=== PATIENT | male | born 1950 | race Caucasian/White ===

== ENCOUNTER 2017-04-05 16:49 | Inpatient (IN) | payer OTHER ==
[~2017-04-05] VITALS: Ht 167.6 cm; Wt 86.3 kg
[2017-04-05] MEDS ORDERED: ONDANSETRON 4 MG INJ IV STA (17:30)
[2017-04-05] MEDS ORDERED: morphine 4 MG/ML VIAL IV STA (17:30)
[2017-04-05] MEDS ORDERED: SOD CHLORIDE 0.9% 1,000 ML IV STA (17:30)
[2017-04-05 17:52] LABS: ADD SCAN DIFF NO
[2017-04-05 17:58] LABS: BASOPHIL # 0.1 10^3/ul (0.0-0.1); BASOPHILS % 0.8 % (0.0-2.0); EOSINOPHILS # 0.4 10^3/ul (0.0-0.5); HEMATOCRIT 42.9 % (42.0-52.0); HEMOGLOBIN 14.3 g/dl (14.0-18.0); LYMPHOCYTES # 2.3 10^3/ul (0.8-2.9); LYMPHOCYTES % 24.2 % (15.0-51.0); MEAN CORPUSCULAR HEMOGLOBIN 29.6 pg (29.0-33.0); MEAN CORPUSCULAR HGB CONC 33.3 g/dl (32.0-37.0); MEAN CORPUSCULAR VOLUME 88.8 fl (82.0-101.0); MEAN PLATELET VOLUME 10.8 fl (7.4-10.4); MONOCYTE # 0.8 10^3/ul (0.3-0.9); MONOCYTES % 8.2 % (0.0-11.0); NEUTROPHIL # 5.8 10^3/ul (1.6-7.5); NEUTROPHILS % 62.4 % (39.0-77.0); PLATELET COUNT 253 10^3/UL (140-415); RED BLOOD COUNT 4.83 10^6/ul (4.70-6.10); WHITE BLOOD COUNT 9.3 10^3/ul (4.8-10.8)
[2017-04-05 18:14] LABS: INR 0.94; PROTIME 12.6 Sec (12.2-14.2)
[2017-04-05 18:15] LABS: PARTIAL THROMBOPLASTIN TIME 30.9 Sec (25.0-35.0)
[2017-04-05 18:19] LABS: ALBUMIN 4.9 g/dl (3.3-4.9); ALBUMIN/GLOBULIN RATIO 1.58; BILIRUBIN,INDIRECT 0.2 mg/dl (0-1.1); BILIRUBIN,TOTAL 0.2 mg/dl (0.2-1.3); CALCIUM 9.5 mg/dl (8.4-10.2); CREATININE 0.95 mg/dl (0.61-1.24); POTASSIUM 4.9 mmol/L (3.5-5.1)
[2017-04-05] MEDS ORDERED: METO100T13 PO (18:30)
[2017-04-05] MEDS ORDERED: DIGO125T PO (18:30)
[2017-04-05] MEDS ORDERED: LISI20TA11 PO (18:31)
[2017-04-05] MEDS ORDERED: SIMV20TA PO (18:31)
[2017-04-05] MEDS ORDERED: INSU300I SQ (18:32)
[2017-04-05] MEDS ORDERED: APIX2.5T PO (18:32)
[2017-04-05] MEDS ORDERED: HYDR-902 PO (18:33)
[2017-04-05] MEDS ORDERED: NOVO3I SC (18:33)
[2017-04-05 18:48] LABS: CARCINOEMBRYONIC ANTIGEN 2.9 ng/ml (0.0-5.0)
[2017-04-05 18:51] VITALS: TEMP 97.8
[2017-04-05 18:52] LABS: CANCER ANTIGEN 19-9 64.4 U/ml (0.0-37.0)
[2017-04-05] MEDS ORDERED: SOD CHLORIDE 0.9% 100 ML ONE (18:59)
[2017-04-05] MEDS ORDERED: IOHEXOL 300MG/ML 150 ML BTL ONE (18:59)
[2017-04-05 19:42] LABS: ADD UMIC NO; UR ASCORBIC ACID 40 mg/dL (NEGATIVE); UR BILIRUBIN (Dip) NEGATIVE (NEGATIVE); UR BLOOD (Dip) NEGATIVE (NEGATIVE); UR CLARITY CLEAR (CLEAR); UR COLOR YELLOW (YELLOW); UR GLUCOSE (Dip) 2+ mg/dL (NEGATIVE); UR KETONES (Dip) NEGATIVE (NEGATIVE); UR LEUKOCYTE ESTERASE (Dip) NEGATIVE Leu/ul (NEGATIVE); UR NITRITE (Dip) NEGATIVE (NEGATIVE); UR SPECIFIC GRAVITY (Dip) 1.018 (1.003-1.030); UR TOTAL PROTEIN (Dip) NEGATIVE (NEGATIVE); UR UROBILINOGEN (Dip) NEGATIVE (NEGATIVE)
[2017-04-05] MEDS ORDERED: PANT40TA4 PO (19:52)
[2017-04-05] MEDS ORDERED: GABA100C14 PO (19:53)
--- NOTE | 2017-04-05 20:33 | RADRPT ---
PROCEDURE: CT abdomen and pelvis with contrast. CLINICAL INDICATION: Abdominal pain. Pancreatic cancer TECHNIQUE: CT scan of the abdomen and pelvis with contrast was performed. Coronal and sagittal im ages were also reformatted. 90 cc Omnipaque-300 intravenous contrast was administered without compl ication. Total exam CTDIvol = 18.34 mGy and DLP = 1065.02 mGy-cm. COMPARISON: None available. FINDINGS: Visualized lower thorax: The lung bases are clear of acute infiltrates, calcified granulomata of the right lower lobe are present. No pleural effusions are present there is mild left-sided pleural th ickening and subtle calcifications of the U left lower lobe pleura. The visualized heart is mildly enlarged. Liver, gallbladder, pancreas and spleen: Normal hepatic contour, attenuation in size. There is no evidence for liver mass or ductal dilatation. The gallbladder is unremarkable. No common bile duct dilatation is evident. The pancreatic body demonstrates an amorphous space occupying lesion likely correlate with the provided history the abnormality extending beyond the pancreatic parenchyma and encasing the superior mesenteric artery. The area of suspected neoplasm is estimated at 2.4 x 2.3 c m (series 3 image 48). Pancreatic duct dilatation of 5 mm distal to the pancreatic body mass is pre sent. There is fat deposition within the pancreatic head including the uncinate process. The splee n is normal, not enlarged. Adrenal glands and genitourinary system: The adrenal glands are normal bilaterally. The kidneys ar e normal in size, contour and attenuation with no evidence for masses, calculi or hydronephrosis. Sy mmetric enhancement of the kidneys is present without evidence of pyelonephritis . The ureters are unremarkable. The urinary bladder shows no abnormality. The prostate gland is normal in size. The visualized scrotum shows no abnormality. Gastrointestinal system: The stomach, small bowel and large intestine are normal in caliber. There is no evidence of obstruction, ileus or inflammation. The appendix and surrounding fat are normal. A constipation pattern is suggested with a few diverticula of the distal colon but no diverticuliti s or colitis. Peritoneum, retroperitoneum, vessels and lymph nodes: The abdominal aorta is normal in caliber. Th ere is moderate to severe aortic and iliac system atherosclerotic calcification. Inferior vena cava is normal in caliber. Retroperitoneal lymph nodes measure less than 1 cm in short axis, there are no lymph nodes meet the criteria for adenopathy. The peritoneal cavity is normal with no evidence f or ascites. No pneumoperitoneum is present Osseous structures and musculoskeletal system: There is no evidence for acute osseous abnormality o r muscular pathology. No subcutaneous abnormalities are present. RPTAT:HJJR IMPRESSION: 1. Amorphous mass arising from the posterior pancreatic body and encasing the superior mesenteric ar beronica is estimated at 2.4 x 2.3 cm with associated pancreatic duct dilatation of 5 mm distal to the m ass, findings correlating with the provided history. 2. No evidence of adenopathy or visceral metastatic disease. 3. Constipation pattern with some diverticular disease of the distal colon but no evidence of diver ticulitis. 4. Moderate to severe atherosclerotic calcification of the aorta and iliac systems. 5. Incidental chronic granulomatous disease of the right lower lobe with pleural calcifications and pleural thickening in the left lower hemithorax. Physician Rima Date Time Electronically viewed and signed by Physician Rima on 04/05/2017 20:32 JR/
--- NOTE | 2017-04-05 21:08 | ERA ---
ER Documentation Chief Complaint Date/Time DATE: 04/05/17 TIME: 21:03 Chief Complaint AP, FROM 'S OFFICE DX PANCREATIC CA HPI This 66-year-old male comes emergency room for left upper abdominal pain on and off for a couple of weeks but getting more severe today. He was seen Dr. Boone"'s office in sent in for a workup for believed pancreatic cancer. Dr. Rosas the oncologist who suggested the patient receive a CAT scan as well as CA-19-9 and CEA. Patient has occasional nausea. He denies any fever or chills. Denies chest pain but has a history of stents. ROS All systems reviewed and are negative except as per history of present illness. Medications Home Meds Reported Medications Gabapentin* (Gabapentin*) 100 Mg Capsule, 100 MG PO TID, #90 CAP 04/05/17 Pantoprazole* (Pantoprazole*) 40 Mg Tablet.dr, 40 MG PO AC BREAKFAST, TAB 04/05/17 Hydrocodone/Acetaminophen ([place] 10-325 Tablet) 1 Each Tablet, 1 EACH PO Q6H, TAB 04/05/17 Insulin Aspart* (Novolog Insulin Pen*) 100 Unit/Ml Soln, 15 UNIT SC WITH LUNCH DINNER, EA 04/05/17 Insulin Glargine,Hum.rec.anlog ([place] Solostar) 300 Unit/1 Ml Insuln.pen, 40 UNIT SQ BID 04/05/17 Apixaban* (Eliquis*) 2.5 Mg Tablet, 2.5 MG PO DAILY, TAB 04/05/17 Simvastatin* (Zocor*) 20 Mg Tablet, 20 MG PO QHS, #30 TAB 04/05/17 Lisinopril* (Lisinopril*) 20 Mg Tablet, 20 MG PO DAILY, #30 TAB 04/05/17 Metoprolol Succinate* (Toprol XL*) 100 Mg Tab.sr.24h, 100 MG PO DAILY, #30 TAB 04/05/17 Digoxin* (Digitek*) 125 Mcg Tablet, 0.125 MG PO DAILY, TAB 04/05/17 Allergies Allergies: Coded Allergies: No Known Allergy (Unverified , 04/05/17) PMhx/Soc History of Surgery: No Anesthesia Reaction: No Hx Neurological Disorder: No Hx Respiratory Disorders: No Hx Cardiac Disorders: Yes (A-Fib) Hx Psychiatric Problems: No Hx Miscellaneous Medical Probl: Yes (HTN, DM, cholesterol) Hx Alcohol Use: No Hx Substance Use: No Hx Tobacco Use: No Smoking Status: Never smoker Physical Exam Vitals Vital Signs Date Time Temp Pulse Resp B/P Pulse Ox O2 Delivery O2 Flow Rate FiO2 04/05/17 18:51 97.8 95 16 140/111 99 Room Air 04/05/17 16:53 98.1 85 20 127/75 99 Physical Exam Const: [] Head: Atraumatic Eyes: Normal Conjunctiva ENT: Normal External Ears, Nose and Mouth. Neck: Full range of motion..~ No meningismus. Resp: Clear to auscultation bilaterally Cardio: Regular rate and rhythm, no murmurs Abd: Soft, non tender, non distended. Normal bowel sounds Skin: No petechiae or rashes Back: No midline or flank tenderness Ext: No cyanosis, or edema Neur: Awake and alert Psych: Normal Mood and Affect Result Diagram: 04/05/17 1745 04/05/17 1745 Results 24 hrs Laboratory Tests Test 04/05/17 17:45 04/05/17 18:15 White Blood Count 9.310^3/ul Red Blood Count 4.8310^6/ul Hemoglobin 14.3g/dl Hematocrit 42.9% Mean Corpuscular Volume 88.8fl Mean Corpuscular Hemoglobin 29.6pg Mean Corpuscular Hemoglobin Concent 33.3g/dl Red Cell Distribution Width 13.0% Platelet Count 78840^3/UL Mean Platelet Volume 10.8fl Neutrophils % 62.4% Lymphocytes % 24.2% Monocytes % 8.2% Eosinophils % 4.0% Basophils % 0.8% Nucleated Red Blood Cells % 0.0/100WBC Neutrophils # 5.810^3/ul Lymphocytes # 2.310^3/ul Monocytes # 0.810^3/ul Eosinophils # 0.410^3/ul Basophils # 0.110^3/ul Nucleated Red Blood Cells # 0.010^3/ul Prothrombin Time 12.6Sec Prothrombin Time Ratio 1.0 INR International Normalized Ratio 0.94 Activated Partial Thromboplast Time 30.9Sec Sodium Level 129mmol/L Potassium Level 4.9mmol/L Chloride Level 92mmol/L Carbon Dioxide Level 31mmol/L Anion Gap 11 Blood Urea Nitrogen 19mg/dl Creatinine 0.95mg/dl Glucose Level 222mg/dl Lactic Acid Level 1.6mmol/L Calcium Level 9.5mg/dl Total Bilirubin 0.2mg/dl Direct Bilirubin 0.00mg/dl Indirect Bilirubin 0.2mg/dl Aspartate Amino Transf (AST/SGOT) 19IU/L Alanine Aminotransferase (ALT/SGPT) 27IU/L Alkaline Phosphatase 77IU/L Total Protein 8.0g/dl Albumin 4.9g/dl Globulin 3.10g/dl Albumin/Globulin Ratio 1.58 Lipase 19U/L Carcinoembryonic Antigen 2.9ng/ml CA 19-9 Antigen 64.4U/ml Urine Color YELLOW Urine Clarity CLEAR Urine pH 5.0 Urine Specific [place] 1.018 Urine Ketones NEGATIVEmg/dL Urine Nitrite NEGATIVEmg/dL Urine Bilirubin NEGATIVEmg/dL Urine Urobilinogen NEGATIVEmg/dL Urine Leukocyte Esterase NEGATIVELeu/ul Urine Hemoglobin NEGATIVEmg/dL Urine Glucose 2+mg/dL Urine Total Protein NEGATIVEmg/dl Current Medications Medications (Trade) Dose Ordered Sig/Sandy Route PRN Reason Start Time Stop Time Status Last Admin Dose Admin Sodium Chloride (NS) 1,000 ml @ 1,000 mls/hr Q1H STAT IV 04/05/17 17:30 04/05/17 18:29 DC 04/05/17 18:08 Morphine Sulfate (morphine) 4 mg ONCE STAT IV 04/05/17 17:30 04/05/17 17:51 DC 04/05/17 18:08 Ondansetron HCl (Zofran Inj) 4 mg ONCE STAT IV 04/05/17 17:30 04/05/17 17:51 DC 04/05/17 18:09 IV Flush 10 ml 10 ml STK-MED ONCE .ROUTE 04/05/17 18:59 04/05/17 19:00 DC 04/05/17 19:22 Sodium Chloride (NS) 100 ml @ ud STK-MED ONCE .ROUTE 04/05/17 18:59 04/05/17 19:00 DC 04/05/17 19:23 Iohexol (Omnipaque 300mg/ ml) 150 ml STK-MED ONCE .ROUTE 04/05/17 18:59 04/05/17 19:00 DC 04/05/17 19:22 Procedures/MDM 66-year-old male with new diagnosis of pancreatic cancer. Also has diabetic hyperglycemia, and hyponatremia. Patient was given morphine and Zofran which helped decrease his abdominal pain and resolved nausea. Is also given a liter of IV fluid. Dr. Boone requested the patient be admitted to Dr. Roberts. He will be admitted for further workup including likely biopsy to prevent rapid spread of cancer and possibly . CT abdomen pelvis interpretation: Pancreatic mass, I see no obstruction, no free air, no acute fractures. Departure Diagnosis: Primary Impression: Pancreatic cancer Additional Impressions: Hyperglycemia due to type 2 diabetes mellitus Acute abdominal pain Hyponatremia Condition: Stable SHIREEN BECKER DO Apr 05, 2017 21:08
[2017-04-05] MEDS ORDERED: ACETAMINOPHEN 325 MG TAB PO PRN (21:30)
[2017-04-05] MEDS ORDERED: ONDANSETRON 4 MG INJ IV PRN (21:30)
[2017-04-05 22:30] VITALS: BP 145/59; RESP 18
[2017-04-05 23:12] VITALS: Ht 167.6 cm; Wt 86.3 kg
[2017-04-05] MEDS ORDERED: HYDROCODONE/APAP (10/325) TAB PO PRN (23:30)
[2017-04-06] MEDS ORDERED: ACETAMINOPHEN 500 MG TAB PO PRN
[2017-04-06] MEDS ORDERED: GLUCAGON 1 MG INJ IM PRN
[2017-04-06] MEDS ORDERED: DEXTROSE 50% 50 ML SYRINGE IV PRN ×2
[2017-04-06] MEDS ORDERED: GLUCOSE GEL 15 GRAM TUBE PO PRN ×2
[2017-04-06] MEDS ORDERED: BISACODYL (EC) 5 MG TAB PO PRN
[2017-04-06] MEDS: ACCU-CHEK XX SCH (00:06)
[2017-04-06] MEDS: ONDANSETRON 4 MG INJ IV PRN ×2 (00:42→19:55)
[2017-04-06] MEDS: SOD CHLORIDE 0.9% 1,000 ML IV SCH ×3 (00:42→19:30)
[2017-04-06] MEDS: morphine 2 MG INJ IV PRN ×4 (00:43→16:17)
[2017-04-06] MEDS ORDERED: ACCU-CHEK XX SCH (02:00)
[2017-04-06 02:10] VITALS: BP 121/70; RESP 20
[2017-04-06 05:36] LABS: ADD SCAN DIFF NO
[2017-04-06 05:41] LABS: BASOPHIL # 0.1 10^3/ul (0.0-0.1); BASOPHILS % 0.6 % (0.0-2.0); EOSINOPHILS # 0.4 10^3/ul (0.0-0.5); EOSINOPHILS % 4.6 % (0.0-7.0); HEMATOCRIT 38.9 % (42.0-52.0); LYMPHOCYTES % 23.9 % (15.0-51.0); MEAN CORPUSCULAR HEMOGLOBIN 29.7 pg (29.0-33.0); MEAN CORPUSCULAR HGB CONC 33.4 g/dl (32.0-37.0); MEAN PLATELET VOLUME 11.3 fl (7.4-10.4); MONOCYTE # 0.7 10^3/ul (0.3-0.9); MONOCYTES % 8.6 % (0.0-11.0); NEUTROPHIL # 5.2 10^3/ul (1.6-7.5); NEUTROPHILS % 61.9 % (39.0-77.0); PLATELET COUNT 223 10^3/UL (140-415); RED BLOOD COUNT 4.37 10^6/ul (4.70-6.10); RED CELL DISTRIBUTION WIDTH 12.7 % (11.5-14.5); WHITE BLOOD COUNT 8.4 10^3/ul (4.8-10.8)
[2017-04-06 06:01] LABS: CALCIUM 9.1 mg/dl (8.4-10.2); CREATININE 0.87 mg/dl (0.61-1.24); POTASSIUM 4.5 mmol/L (3.5-5.1)
[2017-04-06 07:48] VITALS: BP 128/74; RESP 20
[2017-04-06] MEDS: INSULIN ASPART [NOVOLOG] 3 ML PEN SC SCH ×7 (08:00→21:00)
[2017-04-06] MEDS: INSULIN GLARGINE [LANtus] 3 ML PEN SC SCH ×2 (08:23→21:01)
[2017-04-06] MEDS: SENNA TAB PO SCH ×2 (08:31→20:59)
[2017-04-06] MEDS: GABAPENTIN 100 MG CAP PO SCH ×3 (08:31→20:59)
[2017-04-06] MEDS: PANTOPRAZOLE (EC) 40 MG TAB PO SCH (08:31)
[2017-04-06] MEDS: LISINOPRIL 20 MG TAB PO SCH (08:31)
[2017-04-06] MEDS: METOPROLOL (XL) 100 MG TAB PO SCH (08:32)
[2017-04-06] MEDS: DIGOXIN 0.125 MG TAB PO SCH (14:04)
[2017-04-06 14:33] VITALS: BP 119/72; RESP 18
--- NOTE | 2017-04-06 16:45 | QN ---
Documentation Comment [id number] JANE KING MD Apr 06, 2017 16:45
--- NOTE | 2017-04-06 18:58 | CONS ---
Date/Time of Note Date/Time of Note DATE: 04/06/17 TIME: 18:46 Assessment/Plan Assessment/Plan Chief Complaint/Hosp Course 66 yo with epigastric pain with CT demonstrating an amorphous mass arising from the posterior pancreatic body and encasing the superior mesenteric artery is estimated at 2.4 x 2.3 cm with associated pancreatic duct dilatation of 5 mm distal to the mass, findings correlating with the provided history. The mass is not amenable to CT guided biopsy per radiologist. I have spoke with GI as patient may need EUS FNA to make the diagnosis. -consult GI. Dr Holland called -consult hepatobiliary surgery. Will call Dr. Wong per Dr Courtney Benedict -further recommendations will depend on biopsy results Problems: Consultation Date/Type/Reason Admit Date/Time Apr 05, 2017 at 21:32 Date of Consultation: Apr 06, 2017 Type of Consultation: oncology Reason for Consultation pancreatic mass Referring Provider: JANE KING MD Hx of Present Illness 66 yo male with 1 month of epigastric pain that has gradually worsened. He denies significant weight loss or jaundice. A CT was done as an outpatient that revealed a pancreatic mass. Pt was send to Dr. Benedict as an out patient for consideration of a whipple and was noted to have severe epigastric pain. Pt was thus sent to the ER for pain management. Constitutional: improved Eyes: no complaints ENT: no complaints Respiratory: no complaints Cardiovascular: no complaints Gastrointestinal: decreased appetite, pain Genitourinary: no complaints Musculoskeletal: back pain Skin: no complaints Neurologic: no complaints Endocrine: no complaints Past Medical History afib DM HTN hyperlipidemia Family History Significant Family History: no pertinent family hx Social History Alcohol Use: none Smoking Status: Never smoker Drug Use: none Exam/Review of Systems Vital Signs Vitals Vital Signs Date Time Temp Pulse Resp B/P Pulse Ox O2 Delivery O2 Flow Rate FiO2 04/06/17 14:33 98.1 63 18 119/72 95 04/05/17 22:02 Room Air Intake and Output 04/05/17 04/05/17 04/06/17 15:00 23:00 07:00 Intake Total 825 ml Balance 825 ml Exam Constitutional: alert, oriented Psych: no complaints Head: normocephalic Eyes: nl conjunctiva ENMT: nl external ears & nose Neck: non-tender, supple Respiratory: clear to auscultation, normal air movement Cardiovascular: regular rate and rhythm Gastrointestinal: soft Musculoskeletal: nl extremities to inspection, nl gait and stance Results Result Diagram: 04/06/17 0420 04/06/17 0420 Results 24 hrs Laboratory Tests Test 04/05/17 22:43 04/06/17 04:20 04/06/17 07:56 04/06/17 11:48 Bedside Glucose 147 94 137 White Blood Count 8.4 Red Blood Count 4.37 L Hemoglobin 13.0 L Hematocrit 38.9 L Mean Corpuscular Volume 89.0 Mean Corpuscular Hemoglobin 29.7 Mean Corpuscular Hemoglobin Concent 33.4 Red Cell Distribution Width 12.7 Platelet Count 223 Mean Platelet Volume 11.3 H Neutrophils % 61.9 Lymphocytes % 23.9 Monocytes % 8.6 Eosinophils % 4.6 Basophils % 0.6 Nucleated Red Blood Cells % 0.0 Neutrophils # 5.2 Lymphocytes # 2.0 Monocytes # 0.7 Eosinophils # 0.4 Basophils # 0.1 Nucleated Red Blood Cells # 0.0 Sodium Level 136 Potassium Level 4.5 Chloride Level 96 L Carbon Dioxide Level 31 Anion Gap 14 Blood Urea Nitrogen 14 Creatinine 0.87 Glucose Level 104 # Hemoglobin A1c 8.5 H Calcium Level 9.1 CA 19-9 Antigen 56.3 H Test 04/06/17 17:27 Bedside Glucose 91 Medications Medications Current Medications Digoxin (Digoxin) 0.125 mg DAILY@13 PO Last administered on 04/06/17 14:04; Admin Dose 0.125 MG; Start 04/06/17 at 13:00 Gabapentin (Neurontin) 100 mg TID PO Last administered on 04/06/17 14:05; Admin Dose 100 MG; Start 04/06/17 at 09:00 Acetaminophen/ Hydrocodone Bitart ([place] (10/325)) for pain Q6H PRN PO PAIN; Start 04/05/17 at 23:30 Lisinopril (Zestril) 20 mg DAILY PO Last administered on 04/06/17 08:31; Admin Dose 20 MG; Start 04/06/17 at 09:00 Metoprolol Succinate (Toprol Xl) 100 mg DAILY PO Last administered on 04/06/17 08:32; Admin Dose 100 MG; Start 04/06/17 at 09:00 Atorvastatin Calcium (Lipitor) 10 mg DAILY@21 PO ; Start 04/06/17 at 21:00 Acetaminophen (Tylenol Tab) 500 mg Q4H PRN PO PAIN AND OR ELEVATED TEMP; Start 04/06/17 at 00:00 Morphine Sulfate (morphine) 4 mg Q4H PRN IV PAIN LEVEL 7-10; Start 04/06/17 at 00:00 Morphine Sulfate (morphine) 2 mg Q4H PRN IV PAIN LEVEL 4-6 Last administered on 04/06/17 16:17; Admin Dose 2 MG; Start 04/06/17 at 00:00 Senna (Senokot) 2 tab BID PO Last administered on 04/06/17 08:31; Admin Dose 2 TAB; Start 04/06/17 at 09:00 Bisacodyl 5 mg 5 mg DAILY PRN PO CONSTIPATION; Start 04/06/17 at 00:00 Sodium Chloride (NS) 1,000 ml @ 75 mls/hr [id number] IV Last administered on 00:42; Admin Dose 75 MLS/HR; Start 04/06/17 at 00:00 Insulin Glargine (Lantus) 35 unit DAILY@08 SC Last administered on 04/06/17 08: 23; Admin Dose 35 UNIT; Start 04/06/17 at 08:00 Insulin Glargine (Lantus) 25 unit DAILY@20 SC ; Start 04/06/17 at 20:00 Diagnostic Test (Pha) (Accu-Chek) 1 ea 02 XX ; Start 04/06/17 at 02:00 Ondansetron HCl (Zofran Inj) 4 mg Q6H PRN IV NAUSEA AND/OR VOMITING Last administered on 04/06/17 00:42; Admin Dose 4 MG; Start 04/06/17 at 00:00 Miscellaneous Information 1 ea NOTE XX ; Start 04/06/17 at 00:00 Glucose (Glutose) 15 gm Q15M PRN PO DECREASED GLUCOSE; Start 04/06/17 at 00:00 Glucose (Glutose) 22.5 gm Q15M PRN PO DECREASED GLUCOSE; Start 04/06/17 at 00:00 Dextrose (D50w Syringe) 25 ml Q15M PRN IV DECREASED GLUCOSE; Start 04/06/17 at 00:00 Dextrose (D50w Syringe) 50 ml Q15M PRN IV DECREASED GLUCOSE; Start 04/06/17 at 00:00 Glucagon (Glucagen) 1 mg Q15M PRN IM DECREASED GLUCOSE; Start 04/06/17 at 00:00 Glucose (Glutose) 15 gm Q15M PRN BUCCAL DECREASED GLUCOSE; Start 04/06/17 at 00: 00 Mineral Oil (Mineral Oil) 30 ml TID PO ; Start 04/06/17 at 21:00 EDUARDO MURPHY M.D. Apr 06, 2017 18:57
[2017-04-06] MEDS: morphine 4 MG/ML VIAL IV PRN (19:55)
[2017-04-06 20:58] VITALS: BP 130/77; RESP 20
[2017-04-06] MEDS: ATORVASTATIN 10 MG TAB PO SCH (20:59)
[2017-04-06] MEDS: MINERAL OIL 30ML CUP PO SCH (20:59)
[2017-04-07 02:00] VITALS: BP 110/65; RESP 19
[2017-04-07] MEDS: ACCU-CHEK XX SCH (02:00)
[2017-04-07 05:01] LABS: ADD SCAN DIFF NO
[2017-04-07 05:10] LABS: BASOPHIL # 0.1 10^3/ul (0.0-0.1); BASOPHILS % 0.6 % (0.0-2.0); EOSINOPHILS # 0.4 10^3/ul (0.0-0.5); HEMATOCRIT 39.5 % (42.0-52.0); MEAN CORPUSCULAR HEMOGLOBIN 29.1 pg (29.0-33.0); MEAN CORPUSCULAR HGB CONC 32.9 g/dl (32.0-37.0); MEAN CORPUSCULAR VOLUME 88.6 fl (82.0-101.0); MEAN PLATELET VOLUME 10.8 fl (7.4-10.4); MONOCYTE # 0.8 10^3/ul (0.3-0.9); MONOCYTES % 8.3 % (0.0-11.0); NEUTROPHIL # 6.2 10^3/ul (1.6-7.5); NEUTROPHILS % 65.6 % (39.0-77.0); PLATELET COUNT 222 10^3/UL (140-415); RED BLOOD COUNT 4.46 10^6/ul (4.70-6.10); RED CELL DISTRIBUTION WIDTH 12.8 % (11.5-14.5); WHITE BLOOD COUNT 9.5 10^3/ul (4.8-10.8)
[2017-04-07] MEDS: PANTOPRAZOLE (EC) 40 MG TAB PO SCH (05:13)
[2017-04-07 05:57] LABS: ALBUMIN 4.1 g/dl (3.3-4.9); ALBUMIN/GLOBULIN RATIO 1.57; BILIRUBIN,INDIRECT 0.2 mg/dl (0-1.1); BILIRUBIN,TOTAL 0.2 mg/dl (0.2-1.3); CALCIUM 9.3 mg/dl (8.4-10.2); CREATININE 0.88 mg/dl (0.61-1.24); POTASSIUM 4.7 mmol/L (3.5-5.1); TOTAL PROTEIN 6.7 g/dl (6.1-8.1)
[2017-04-07 07:15] VITALS: BP 117/71; RESP 16
[2017-04-07] MEDS: INSULIN ASPART [NOVOLOG] 3 ML PEN SC SCH ×7 (08:32→21:00)
[2017-04-07] MEDS: INSULIN GLARGINE [LANtus] 3 ML PEN SC SCH ×2 (08:34→22:03)
[2017-04-07] MEDS: MINERAL OIL 30ML CUP PO SCH ×3 (09:13→21:59)
[2017-04-07] MEDS: SOD CHLORIDE 0.9% 1,000 ML IV SCH ×2 (09:13→16:00)
[2017-04-07] MEDS: SENNA TAB PO SCH ×2 (09:14→21:59)
[2017-04-07] MEDS: METOPROLOL (XL) 100 MG TAB PO SCH (09:14)
[2017-04-07] MEDS: GABAPENTIN 100 MG CAP PO SCH ×3 (09:14→21:59)
[2017-04-07] MEDS: morphine 2 MG INJ IV PRN ×2 (09:15→15:03)
[2017-04-07] MEDS: LISINOPRIL 20 MG TAB PO SCH (09:15)
--- NOTE | 2017-04-07 12:05 | CONS ---
Date/Time of Note Date/Time of Note DATE: 04/07/17 TIME: 12:02 Assessment/Plan Assessment/Plan Chief Complaint/Hosp Course 1. CKD 2.Pancreatic cancer. 3. DM type II controlled 4. HTN. Problems: Additional Assessment/Plan 1. Optimization kidney function Consultation Date/Type/Reason Admit Date/Time Apr 05, 2017 at 21:32 Initial Consult Date 04/06/17 Type of Consultation: nephrology Reason for Consultation Dr King Referring Provider: JANE KING MD 24 HR Interval Summary Constitutional: no complaints, other (acidity in mouth) Exam/Review of Systems Vital Signs Vitals Vital Signs Date Time Temp Pulse Resp B/P Pulse Ox O2 Delivery O2 Flow Rate FiO2 04/07/17 07:15 97.4 75 16 117/71 97 04/05/17 22:02 Room Air Intake and Output 04/06/17 04/06/17 04/07/17 15:00 23:00 07:00 Intake Total 1465 ml 1075 ml Output Total 300 ml Balance 1165 ml 1075 ml Exam Constitutional: alert, oriented Head: normocephalic Eyes: nl conjunctiva ENMT: nl external ears & nose Respiratory: clear to auscultation Cardiovascular: regular rate and rhythm Gastrointestinal: soft Skin: nl turgor Results Result Diagram: 04/07/17 0420 04/07/17 0420 Results 24 hrs Laboratory Tests Test 04/06/17 17:27 04/06/17 20:58 04/07/17 04:20 04/07/17 07:42 Bedside Glucose 91 79 173 White Blood Count 9.5 Red Blood Count 4.46 L Hemoglobin 13.0 L Hematocrit 39.5 L Mean Corpuscular Volume 88.6 Mean Corpuscular Hemoglobin 29.1 Mean Corpuscular Hemoglobin Concent 32.9 Red Cell Distribution Width 12.8 Platelet Count 222 Mean Platelet Volume 10.8 H Neutrophils % 65.6 Lymphocytes % 21.0 Monocytes % 8.3 Eosinophils % 4.0 Basophils % 0.6 Nucleated Red Blood Cells % 0.0 Neutrophils # 6.2 Lymphocytes # 2.0 Monocytes # 0.8 Eosinophils # 0.4 Basophils # 0.1 Nucleated Red Blood Cells # 0.0 Sodium Level 139 Potassium Level 4.7 Chloride Level 95 L Carbon Dioxide Level 32 H Anion Gap 17 H Blood Urea Nitrogen 12 Creatinine 0.88 Glucose Level 84 Calcium Level 9.3 Total Bilirubin 0.2 Direct Bilirubin 0.00 Indirect Bilirubin 0.2 Aspartate Amino Transf (AST/SGOT) 16 Alanine Aminotransferase (ALT/SGPT) 25 Alkaline Phosphatase 66 Total Protein 6.7 # Albumin 4.1 Globulin 2.60 Albumin/Globulin Ratio 1.57 Test 04/07/17 11:51 Bedside Glucose 150 Medications Medications Current Medications Digoxin (Digoxin) 0.125 mg DAILY@13 PO Last administered on 04/06/17 14:04; Admin Dose 0.125 MG; Start 04/06/17 at 13:00 Gabapentin (Neurontin) 100 mg TID PO Last administered on 04/07/17 09:14; Admin Dose 100 MG; Start 04/06/17 at 09:00 Acetaminophen/ Hydrocodone Bitart ([place] (10/325)) for pain Q6H PRN PO PAIN; Start 04/05/17 at 23:30 Lisinopril (Zestril) 20 mg DAILY PO Last administered on 04/07/17 09:15; Admin Dose 20 MG; Start 04/06/17 at 09:00 Metoprolol Succinate (Toprol Xl) 100 mg DAILY PO Last administered on 04/07/17 09:14; Admin Dose 100 MG; Start 04/06/17 at 09:00 Atorvastatin Calcium (Lipitor) 10 mg DAILY@21 PO Last administered on 04/06/17 20:59; Admin Dose 10 MG; Start 04/06/17 at 21:00 Acetaminophen (Tylenol Tab) 500 mg Q4H PRN PO PAIN AND OR ELEVATED TEMP; Start 04/06/17 at 00:00 Morphine Sulfate (morphine) 4 mg Q4H PRN IV PAIN LEVEL 7-10 Last administered on 04/06/17 19:55; Admin Dose 4 MG; Start 04/06/17 at 00:00 Morphine Sulfate (morphine) 2 mg Q4H PRN IV PAIN LEVEL 4-6 Last administered on 04/07/17 09:15; Admin Dose 2 MG; Start 04/06/17 at 00:00 Senna (Senokot) 2 tab BID PO Last administered on 04/07/17 09:14; Admin Dose 2 TAB; Start 04/06/17 at 09:00 Bisacodyl 5 mg 5 mg DAILY PRN PO CONSTIPATION; Start 04/06/17 at 00:00 Sodium Chloride (NS) 1,000 ml @ 75 mls/hr [id number] IV Last administered on 09:13; Admin Dose 75 MLS/HR; Start 04/06/17 at 00:00 Insulin Glargine (Lantus) 35 unit DAILY@08 SC Last administered on 04/07/17 08: 34; Admin Dose 35 UNIT; Start 04/06/17 at 08:00 Insulin Glargine (Lantus) 25 unit DAILY@20 SC Last administered on 04/06/17 21: 01; Admin Dose 25 UNIT; Start 04/06/17 at 20:00 Diagnostic Test (Pha) (Accu-Chek) 1 ea 02 XX ; Start 04/06/17 at 02:00 Ondansetron HCl (Zofran Inj) 4 mg Q6H PRN IV NAUSEA AND/OR VOMITING Last administered on 04/06/17 19:55; Admin Dose 4 MG; Start 04/06/17 at 00:00 Miscellaneous Information 1 ea NOTE XX ; Start 04/06/17 at 00:00 Glucose (Glutose) 15 gm Q15M PRN PO DECREASED GLUCOSE; Start 04/06/17 at 00:00 Glucose (Glutose) 22.5 gm Q15M PRN PO DECREASED GLUCOSE; Start 04/06/17 at 00:00 Dextrose (D50w Syringe) 25 ml Q15M PRN IV DECREASED GLUCOSE; Start 04/06/17 at 00:00 Dextrose (D50w Syringe) 50 ml Q15M PRN IV DECREASED GLUCOSE; Start 04/06/17 at 00:00 Glucagon (Glucagen) 1 mg Q15M PRN IM DECREASED GLUCOSE; Start 04/06/17 at 00:00 Glucose (Glutose) 15 gm Q15M PRN BUCCAL DECREASED GLUCOSE; Start 04/06/17 at 00: 00 Mineral Oil (Mineral Oil) 30 ml TID PO Last administered on 04/07/17 09:13; Admin Dose 30 ML; Start 04/06/17 at 21:00 PEG ROBBINS Apr 07, 2017 12:04
[2017-04-07] MEDS: DIGOXIN 0.125 MG TAB PO SCH (12:58)
[2017-04-07 14:12] VITALS: BP 135/85; RESP 18
--- NOTE | 2017-04-07 14:45 | CONS ---
Date/Time of Note Date/Time of Note DATE: 04/07/17 TIME: 14:40 Assessment/Plan Assessment/Plan Chief Complaint/Hosp Course 66 yo with epigastric pain with CT demonstrating an amorphous mass arising from the posterior pancreatic body and encasing the superior mesenteric artery is estimated at 2.4 x 2.3 cm with associated pancreatic duct dilatation of 5 mm distal to the mass, findings correlating with the provided history. The mass is not amenable to CT guided biopsy per radiologist. I have spoke with GI as patient may need EUS FNA to make the diagnosis. -consult GI. Dr Holland called. f/u recs -consult hepatobiliary surgery. Will call Dr. Wong per Dr Courtney Benedict -further recommendations will depend on biopsy results Problems: Consultation Date/Type/Reason Admit Date/Time Apr 05, 2017 at 21:32 Initial Consult Date 04/06/17 Type of Consultation: oncology Reason for Consultation pancreatic mass Referring Provider: JANE KING MD 24 HR Interval Summary Free Text/Dictation pt still with abdominal pain Exam/Review of Systems Vital Signs Vitals Vital Signs Date Time Temp Pulse Resp B/P Pulse Ox O2 Delivery O2 Flow Rate FiO2 04/07/17 14:12 97.6 65 18 135/85 97 04/05/17 22:02 Room Air Intake and Output 04/06/17 04/06/17 04/07/17 15:00 23:00 07:00 Intake Total 1465 ml 1075 ml Output Total 300 ml Balance 1165 ml 1075 ml Exam Constitutional: alert, oriented Psych: no complaints Head: atraumatic, normocephalic Eyes: nl conjunctiva ENMT: nl external ears & nose Neck: non-tender, supple Respiratory: clear to auscultation, normal air movement Cardiovascular: regular rate and rhythm Gastrointestinal: soft, tender Musculoskeletal: nl extremities to inspection, nl gait and stance Results Result Diagram: 04/07/17 0420 04/07/17 0420 Results 24 hrs Laboratory Tests Test 04/06/17 17:27 04/06/17 20:58 04/07/17 04:20 04/07/17 07:42 Bedside Glucose 91 79 173 White Blood Count 9.5 Red Blood Count 4.46 L Hemoglobin 13.0 L Hematocrit 39.5 L Mean Corpuscular Volume 88.6 Mean Corpuscular Hemoglobin 29.1 Mean Corpuscular Hemoglobin Concent 32.9 Red Cell Distribution Width 12.8 Platelet Count 222 Mean Platelet Volume 10.8 H Neutrophils % 65.6 Lymphocytes % 21.0 Monocytes % 8.3 Eosinophils % 4.0 Basophils % 0.6 Nucleated Red Blood Cells % 0.0 Neutrophils # 6.2 Lymphocytes # 2.0 Monocytes # 0.8 Eosinophils # 0.4 Basophils # 0.1 Nucleated Red Blood Cells # 0.0 Sodium Level 139 Potassium Level 4.7 Chloride Level 95 L Carbon Dioxide Level 32 H Anion Gap 17 H Blood Urea Nitrogen 12 Creatinine 0.88 Glucose Level 84 Calcium Level 9.3 Total Bilirubin 0.2 Direct Bilirubin 0.00 Indirect Bilirubin 0.2 Aspartate Amino Transf (AST/SGOT) 16 Alanine Aminotransferase (ALT/SGPT) 25 Alkaline Phosphatase 66 Total Protein 6.7 # Albumin 4.1 Globulin 2.60 Albumin/Globulin Ratio 1.57 Thyroid Stimulating Hormone (TSH) 1.130 Test 04/07/17 11:51 Bedside Glucose 150 Medications Medications Current Medications Digoxin (Digoxin) 0.125 mg DAILY@13 PO Last administered on 04/07/17 12:58; Admin Dose 0.125 MG; Start 04/06/17 at 13:00 Gabapentin (Neurontin) 100 mg TID PO Last administered on 04/07/17 12:58; Admin Dose 100 MG; Start 04/06/17 at 09:00 Acetaminophen/ Hydrocodone Bitart ([place] (10/325)) for pain Q6H PRN PO PAIN; Start 04/05/17 at 23:30 Lisinopril (Zestril) 20 mg DAILY PO Last administered on 04/07/17 09:15; Admin Dose 20 MG; Start 04/06/17 at 09:00 Metoprolol Succinate (Toprol Xl) 100 mg DAILY PO Last administered on 04/07/17 09:14; Admin Dose 100 MG; Start 04/06/17 at 09:00 Atorvastatin Calcium (Lipitor) 10 mg DAILY@21 PO Last administered on 04/06/17 20:59; Admin Dose 10 MG; Start 04/06/17 at 21:00 Acetaminophen (Tylenol Tab) 500 mg Q4H PRN PO PAIN AND OR ELEVATED TEMP; Start 04/06/17 at 00:00 Morphine Sulfate (morphine) 4 mg Q4H PRN IV PAIN LEVEL 7-10 Last administered on 04/06/17 19:55; Admin Dose 4 MG; Start 04/06/17 at 00:00 Morphine Sulfate (morphine) 2 mg Q4H PRN IV PAIN LEVEL 4-6 Last administered on 04/07/17 09:15; Admin Dose 2 MG; Start 04/06/17 at 00:00 Senna (Senokot) 2 tab BID PO Last administered on 04/07/17 09:14; Admin Dose 2 TAB; Start 04/06/17 at 09:00 Bisacodyl 5 mg 5 mg DAILY PRN PO CONSTIPATION; Start 04/06/17 at 00:00 Sodium Chloride (NS) 1,000 ml @ 75 mls/hr [id number] IV Last administered on 09:13; Admin Dose 75 MLS/HR; Start 04/06/17 at 00:00 Insulin Glargine (Lantus) 35 unit DAILY@08 SC Last administered on 04/07/17 08: 34; Admin Dose 35 UNIT; Start 04/06/17 at 08:00 Insulin Glargine (Lantus) 25 unit DAILY@20 SC Last administered on 04/06/17 21: 01; Admin Dose 25 UNIT; Start 04/06/17 at 20:00 Diagnostic Test (Pha) (Accu-Chek) 1 ea 02 XX ; Start 04/06/17 at 02:00 Ondansetron HCl (Zofran Inj) 4 mg Q6H PRN IV NAUSEA AND/OR VOMITING Last administered on 04/06/17 19:55; Admin Dose 4 MG; Start 04/06/17 at 00:00 Miscellaneous Information 1 ea NOTE XX ; Start 04/06/17 at 00:00 Glucose (Glutose) 15 gm Q15M PRN PO DECREASED GLUCOSE; Start 04/06/17 at 00:00 Glucose (Glutose) 22.5 gm Q15M PRN PO DECREASED GLUCOSE; Start 04/06/17 at 00:00 Dextrose (D50w Syringe) 25 ml Q15M PRN IV DECREASED GLUCOSE; Start 04/06/17 at 00:00 Dextrose (D50w Syringe) 50 ml Q15M PRN IV DECREASED GLUCOSE; Start 04/06/17 at 00:00 Glucagon (Glucagen) 1 mg Q15M PRN IM DECREASED GLUCOSE; Start 04/06/17 at 00:00 Glucose (Glutose) 15 gm Q15M PRN BUCCAL DECREASED GLUCOSE; Start 04/06/17 at 00: 00 Mineral Oil (Mineral Oil) 30 ml TID PO Last administered on 04/07/17t 12:58; Admin Dose 30 ML; Start 04/06/17 at 21:00 EDUARDO MURPHY M.D. Apr 07, 2017 14:45
[2017-04-07] MEDS: morphine 4 MG/ML VIAL IV PRN (21:58)
[2017-04-07] MEDS: ATORVASTATIN 10 MG TAB PO SCH (21:59)
[2017-04-07] MEDS: ONDANSETRON 4 MG INJ IV PRN (21:59)
[2017-04-07 22:08] VITALS: BP 137/78; RESP 18
[2017-04-08] MEDS: ACCU-CHEK XX SCH (02:00)
[2017-04-08 03:10] VITALS: BP 127/67; RESP 18
[2017-04-08] MEDS: SOD CHLORIDE 0.9% 1,000 ML IV SCH ×2 (05:22→18:40)
[2017-04-08] MEDS: morphine 4 MG/ML VIAL IV PRN (05:22)
[2017-04-08 06:02] LABS: CHOL/HDL RATIO 3.6 RATIO
[2017-04-08] MEDS: INSULIN ASPART [NOVOLOG] 3 ML PEN SC SCH ×7 (08:00→21:00)
--- NOTE | 2017-04-08 08:02 | CONS ---
Date/Time of Note Date/Time of Note DATE: 04/08/17 TIME: 07:59 Assessment/Plan Assessment/Plan Chief Complaint/Hosp Course IMp: 1.AF-rate controlled 2.abnl ecg-negatve trop/no cp 3.HTN 4.Pancreatic mass 5.DM Recc: -Tele -serial ecg's -Continue statin -Continue zestril/toprol xl -Ongoing GI/Onc/surgical eval of pancreatic mass Problems: Consultation Date/Type/Reason Admit Date/Time Apr 05, 2017 at 21:32 Initial Consult Date 04/06/17 Type of Consultation: cardiology Reason for Consultation AF Referring Provider: JANE KING MD Exam/Review of Systems Vital Signs Vitals Vital Signs Date Time Temp Pulse Resp B/P Pulse Ox O2 Delivery O2 Flow Rate FiO2 04/08/17 03:10 97.3 67 18 127/67 98 04/05/17 22:02 Room Air Intake and Output 04/07/17 04/07/17 04/08/17 15:00 23:00 07:00 Intake Total 250 ml 1220 ml 890 ml Balance 250 ml 1220 ml 890 ml Exam Review of Systems: CONSTITUTIONAL: No fevers, chills. PULMONARY: No sob CARDIOVASCULAR: No chest pain/palpitations GASTROINTESTINAL: Mild abd pain GENITOURINARY: No hematuria/dysuria. MUSCULOSKELETAL: No myagias/arthalgias. PSYCHIATRIC: The patient denies depression. NEUROLOGIC: No weakness Constitutional: alert Psych: no complaints Head: normocephalic ENMT: mucosa pink and moist Neck: jvd (9 cm water), supple Respiratory: diminished breath sounds (at bases/B) Cardiovascular: irregular rhythm Gastrointestinal: non-tender, soft Musculoskeletal: muscle tone (normal) Extremities: edema (none) Neurological: other (No focal deficits) Results Result Diagram: 04/07/17 0420 04/07/17 0420 Results 24 hrs Laboratory Tests Test 04/07/17 11:51 04/07/17 17:08 04/07/17 22:02 04/08/17 04:30 Bedside Glucose 150 122 123 Triglycerides Level 85 Cholesterol Level 121 LDL Cholesterol, Calculated 71 HDL Cholesterol 33 Cholesterol/HDL Ratio 3.6 Medications Medications Current Medications Digoxin (Digoxin) 0.125 mg DAILY@13 PO Last administered on 04/07/17t 12:58; Admin Dose 0.125 MG; Start 04/06/17 at 13:00 Gabapentin (Neurontin) 100 mg TID PO Last administered on 04/07/17 21:59; Admin Dose 100 MG; Start 04/06/17 at 09:00 Acetaminophen/ Hydrocodone Bitart ([place] (10/325)) for pain Q6H PRN PO PAIN; Start 04/05/17 at 23:30 Lisinopril (Zestril) 20 mg DAILY PO Last administered on 04/07/17 09:15; Admin Dose 20 MG; Start 04/06/17 at 09:00 Metoprolol Succinate (Toprol Xl) 100 mg DAILY PO Last administered on 04/07/17 09:14; Admin Dose 100 MG; Start 04/06/17 at 09:00 Atorvastatin Calcium (Lipitor) 10 mg DAILY@21 PO Last administered on 04/07/17 21:59; Admin Dose 10 MG; Start 04/06/17 at 21:00 Acetaminophen (Tylenol Tab) 500 mg Q4H PRN PO PAIN AND OR ELEVATED TEMP; Start 04/06/17 at 00:00 Morphine Sulfate (morphine) 4 mg Q4H PRN IV PAIN LEVEL 7-10 Last administered on 04/08/17 05:22; Admin Dose 4 MG; Start 04/06/17 at 00:00 Morphine Sulfate (morphine) 2 mg Q4H PRN IV PAIN LEVEL 4-6 Last administered on 04/07/17 15:03; Admin Dose 2 MG; Start 04/06/17 at 00:00 Senna (Senokot) 2 tab BID PO Last administered on 04/07/17 21:59; Admin Dose 2 TAB; Start 04/06/17 at 09:00 Bisacodyl 5 mg 5 mg DAILY PRN PO CONSTIPATION; Start 04/06/17 at 00:00 Sodium Chloride (NS) 1,000 ml @ 75 mls/hr [id number] IV Last administered on 05:22; Admin Dose 75 MLS/HR; Start 04/06/17 at 00:00 Insulin Glargine (Lantus) 35 unit DAILY@08 SC Last administered on 04/07/17 08: 34; Admin Dose 35 UNIT; Start 04/06/17 at 08:00 Insulin Glargine (Lantus) 25 unit DAILY@20 SC Last administered on 04/07/17 22: 03; Admin Dose 25 UNIT; Start 04/06/17 at 20:00 Diagnostic Test (Pha) (Accu-Chek) 1 ea 02 XX ; Start 04/06/17 at 02:00 Ondansetron HCl (Zofran Inj) 4 mg Q6H PRN IV NAUSEA AND/OR VOMITING Last administered on 04/07/17 21:59; Admin Dose 4 MG; Start 04/06/17 at 00:00 Miscellaneous Information 1 ea NOTE XX ; Start 04/06/17 at 00:00 Glucose (Glutose) 15 gm Q15M PRN PO DECREASED GLUCOSE; Start 04/06/17 at 00:00 Glucose (Glutose) 22.5 gm Q15M PRN PO DECREASED GLUCOSE; Start 04/06/17 at 00:00 Dextrose (D50w Syringe) 25 ml Q15M PRN IV DECREASED GLUCOSE; Start 04/06/17 at 00:00 Dextrose (D50w Syringe) 50 ml Q15M PRN IV DECREASED GLUCOSE; Start 04/06/17 at 00:00 Glucagon (Glucagen) 1 mg Q15M PRN IM DECREASED GLUCOSE; Start 04/06/17 at 00:00 Glucose (Glutose) 15 gm Q15M PRN BUCCAL DECREASED GLUCOSE; Start 04/06/17 at 00: 00 Mineral Oil (Mineral Oil) 30 ml TID PO Last administered on 04/07/17 21:59; Admin Dose 30 ML; Start 04/06/17 at 21:00 SONA FRANK Apr 08, 2017 08:02
[2017-04-08 08:13] VITALS: BP 130/76; RESP 16
[2017-04-08] MEDS: INSULIN GLARGINE [LANtus] 3 ML PEN SC SCH ×2 (08:38→21:48)
[2017-04-08] MEDS: PANTOPRAZOLE (EC) 40 MG TAB PO SCH (08:39)
[2017-04-08] MEDS: METOPROLOL (XL) 100 MG TAB PO SCH (09:00)
[2017-04-08] MEDS: GABAPENTIN 100 MG CAP PO SCH ×3 (09:41→21:43)
[2017-04-08] MEDS: MINERAL OIL 30ML CUP PO SCH ×3 (09:41→21:50)
[2017-04-08] MEDS: SENNA TAB PO SCH ×2 (09:41→21:43)
[2017-04-08] MEDS: LISINOPRIL 20 MG TAB PO SCH (09:42)
--- NOTE | 2017-04-08 09:43 | RADRPT ---
Echocardiogram Report ADDENDUM Patient Name: TJ ALCANTAR Gender: Male Date: 1950 Study Date: 07-Apr-2017 Hospice Superintendent: [facility] Location: 2244 Ref. Physician: SONA CROWE Quality: Adequate Procedures: Transthoracic echocardiogram with complete 2D, M-Mode, and doppler examination. Indications: Pre-op. 2D/M Mode Doppler Measurement Value Normal Ranges Measurement Value Normal Ranges LVIDd 2D 6.1 3.5 - 5.6 cm AV Peak Avel 1.4 m/sec LVIDs 2D 4.8 2.1 - 4.1 cm AV Peak PG 8.0 mmHg FS 2D 22.4 % LVOT Peak Avel 0.8 m/sec LVPWd 2D 1.4 0.6 - 1.1 cm LVOT Peak PG 3.0 mmHg IVSd 2D 1.3 0.6 - 1.1 cm MV E Peak Avel 0.9 m/sec IVS/LVPW 2D 0.9 TR Peak Avel 1.8 m/sec AoR Diam 2D 2.9 2.0 - 3.7 cm TR Peak PG 13.0 mmHg LA/Ao 2D 2 0 - 1 RVSP 16.0 mmHg EDV 2D 229.0 cm3 ESV 2D 107.0 cm3 LA Dimen 2D 5.5 2.3 - 4.0 cm Findings Left Ventricle: Mild concentric left ventricular hypertrophy. Mild enlargement of left ventricle cavity. Moderate global left ventricular systolic dysfunction. Ejection fraction is visually estimated at 3035 %. Abnormal Diastolic Function. Right Ventricle: Normal right ventricular size. Normal right ventricular systolic function. Left Atrium: There is severe enlargement of left atrium. Right Atrium: The right atrium is normal in size. Mitral Valve: Mitral valve leaflets appear mildly thickened. Mild mitral annular calcification. Trace mitral regurgitation. Aortic Valve: Normal appearance of the aortic valve. No significant aortic stenosis or insufficiency. Tricuspid Valve: Normal appearance of the tricuspid valve. Estimated peak PA systolic pressure 16 mmHg. There is trace tricuspid regurgitation. Pulmonic Valve: Pulmonic valve not well visualized. There is trace pulmonic regurgitation. Pericardium: Normal pericardium with no significant pericardial effusion. Aorta: Normal aortic root. IVC: Normal size and normal respiratory collapse consistent with normal right atrial pressure. Conclusions Mild concentric left ventricular hypertrophy. Mild enlargement of left ventricle cavity. Moderate global left ventricular systolic dysfunction. Ejection fraction is visually estimated at 30-35 %. Abnormal Diastolic Function. There is severe enlargement of left atrium. Trace to mild mitral regurgitation. Estimated peak PA systolic pressure 16 mmHg. There is trace tricuspid regurgitation. There is trace pulmonic regurgitation. Hyperechoic structure in LV apex concerning for possible LV apical thrombus. Electronically Signed By: Sona Crowe 10-Apr-2017 18:45:25 -0700 [ADDENDUM] Patient Name: TJ ALCANTAR Study Date: 07-Apr-2017 [id number]
[2017-04-08] MEDS: morphine 2 MG INJ IV PRN (10:40)
--- NOTE | 2017-04-08 10:43 | CONS ---
Date/Time of Note Date/Time of Note DATE: 04/08/17 TIME: 10:34 Assessment/Plan Assessment/Plan Additional Assessment/Plan Pancreatic mass Abdominal pain secondary to the above Weight loss secondary to the above History of type 2 diabetes Mild to moderate obesity We will begin MS Contin 15 mg twice daily bowel regimen continue with current MS IV, can switch to immediate release or nonsteroidal anti-inflammatory medication as breakthrough medication at discharge will follow daily .... Consultation Date/Type/Reason Admit Date/Time Apr 05, 2017 at 21:32 Date of Consultation: Apr 08, 2017 Type of Consultation: Pain management Hx of Present Illness 66-year-old gentleman admitted for increasing abdominal discomfort beginning approximately 2 months prior to his presentation, workup thus far consistent with a complex mass of his pancreas patient has been admitted for pain management and for further workup. Once again pain beginning 2 months prior to his presentation described as epigastric in origin gnawing type discomfort which has began to radiate to bilateral upper quadrant and to right upper back. Pain is intense 9/10 is alleviated with current morphine IV dosing however last only approximately 3 hours and returned once again. States he has no systemic symptoms associated with the pain nausea vomiting chest pain shortness of breath cough abdominal discomfort other than which is above he has a chronic history of constipation the pain has interfered with his physical functioning mood sleeping patterns and overall function. States that with minimum oral intake he becomes bloated and is unable to eat so much so that he has lost approximately 10 pounds in last 2 months. Since here he has not asked for excessive amounts of pain control medication there is no past medical history of opioid use or abuse is a non-smoker nondrinker does not ask for early renewal of his medications not negotiate once again she describes his pain as severe. Constitutional: no complaints, other (acidity in mouth) Eyes: no complaints ENT: no complaints Respiratory: no complaints Cardiovascular: no complaints Gastrointestinal: decreased appetite, pain Genitourinary: no complaints Musculoskeletal: back pain Skin: no complaints Neurologic: no complaints Endocrine: no complaints Psychological: no complaints Past Medical History Medical History: diabetes Past Surgical History Past Surgical Hx: no surgical history, other (Unknown cardiac procedure approximately 15 years ago) Family History Significant Family History: no pertinent family hx Social History Alcohol Use: none Smoking Status: Never smoker Drug Use: none Exam/Review of Systems Vital Signs Vitals Vital Signs Date Time Temp Pulse Resp B/P Pulse Ox O2 Delivery O2 Flow Rate FiO2 04/08/17 08:13 97.6 54 16 130/76 98 04/05/17 22:02 Room Air Intake and Output 04/07/17 04/07/17 04/08/17 14:59 22:59 06:59 Intake Total 250 ml 1220 ml 890 ml Balance 250 ml 1220 ml 890 ml Exam Constitutional: alert, distress, frail, non-verbal, obese, oriented, other, well developed Psych: nl mood/affect, no complaints Head: atraumatic, normocephalic Eyes: EOMI, PERRL, nl conjunctiva, nl lids, nl sclera ENMT: nl external ears & nose, nl lips & teeth, nl nasal mucosa & septum Neck: non-tender, supple Respiratory: clear to auscultation, normal air movement Cardiovascular: nl pulses, regular rate and rhythm Gastrointestinal: distended, nl liver, spleen, non-tender, other (Moderate discomfort epigastrium without rebound or peritoneal signs), soft, tender Musculoskeletal: nl extremities to inspection, nl gait and stance Extremities: normal pulses Neurological: [employer] II-XII intact, nl mental status, nl speech, nl strength, No DTR's symmetric, No confused, No focal weakness, No lethargic, No numbness , No other, No reflexes, No unresponsive Skin: nl turgor, No diaphoresis, No ecchymosis, No laceration, No other, No puncture, No rash or lesions Lymph: nl lymph nodes, No enlarged, No nontender, No other Results Result Diagram: 04/07/1741904/07/17 042 Results 24 hrs Laboratory Tests Test 04/07/17 11:51 04/07/17 17:08 04/07/17 22:02 04/08/17 04:30 Bedside Glucose 150 122 123 Triglycerides Level 85 Cholesterol Level 121 LDL Cholesterol, Calculated 71 HDL Cholesterol 33 Cholesterol/HDL Ratio 3.6 Test 04/08/17 08:03 Bedside Glucose 134 Medications Medications Current Medications Digoxin (Digoxin) 0.125 mg DAILY@13 PO Last administered on 04/07/17 12:58; Admin Dose 0.125 MG; Start 04/06/17 at 13:00 Gabapentin (Neurontin) 100 mg TID PO Last administered on 04/08/17 09:41; Admin Dose 100 MG; Start 04/06/17 at 09:00 Acetaminophen/ Hydrocodone Bitart ([place] (10/325)) for pain Q6H PRN PO PAIN; Start 04/05/17 at 23:30 Lisinopril (Zestril) 20 mg DAILY PO Last administered on 04/08/17 09:42; Admin Dose 20 MG; Start 04/06/17 at 09:00 Metoprolol Succinate (Toprol Xl) 100 mg DAILY PO Last administered on 04/07/17 09:14; Admin Dose 100 MG; Start 04/06/17 at 09:00 Atorvastatin Calcium (Lipitor) 10 mg DAILY@21 PO Last administered on 04/07/17 21:59; Admin Dose 10 MG; Start 04/06/17 at 21:00 Acetaminophen (Tylenol Tab) 500 mg Q4H PRN PO PAIN AND OR ELEVATED TEMP; Start 04/06/17 at 00:00 Morphine Sulfate (morphine) 4 mg Q4H PRN IV PAIN LEVEL 7-10 Last administered on 04/08/17 05:22; Admin Dose 4 MG; Start 04/06/17 at 00:00 Morphine Sulfate (morphine) 2 mg Q4H PRN IV PAIN LEVEL 4-6 Last administered on 04/07/17 15:03; Admin Dose 2 MG; Start 04/06/17 at 00:00 Senna (Senokot) 2 tab BID PO Last administered on 04/08/17 09:41; Admin Dose 2 TAB; Start 04/06/17 at 09:00 Bisacodyl 5 mg 5 mg DAILY PRN PO CONSTIPATION; Start 04/06/17 at 00:00 Sodium Chloride (NS) 1,000 ml @ 75 mls/hr [id number] IV Last administered on 05:22; Admin Dose 75 MLS/HR; Start 04/06/17 at 00:00 Insulin Glargine (Lantus) 35 unit DAILY@08 SC Last administered on 04/08/17 08: 38; Admin Dose 35 UNIT; Start 04/06/17 at 08:00 Insulin Glargine (Lantus) 25 unit DAILY@20 SC Last administered on 04/07/17 22: 03; Admin Dose 25 UNIT; Start 04/06/17 at 20:00 Diagnostic Test (Pha) (Accu-Chek) 1 ea 02 XX ; Start 04/06/17 at 02:00 Ondansetron HCl (Zofran Inj) 4 mg Q6H PRN IV NAUSEA AND/OR VOMITING Last administered on 04/07/17 21:59; Admin Dose 4 MG; Start 04/06/17 at 00:00 Miscellaneous Information 1 ea NOTE XX ; Start 04/06/17 at 00:00 Glucose (Glutose) 15 gm Q15M PRN PO DECREASED GLUCOSE; Start 04/06/17 at 00:00 Glucose (Glutose) 22.5 gm Q15M PRN PO DECREASED GLUCOSE; Start 04/06/17 at 00:00 Dextrose (D50w Syringe) 25 ml Q15M PRN IV DECREASED GLUCOSE; Start 04/06/17 at 00:00 Dextrose (D50w Syringe) 50 ml Q15M PRN IV DECREASED GLUCOSE; Start 04/06/17 at 00:00 Glucagon (Glucagen) 1 mg Q15M PRN IM DECREASED GLUCOSE; Start 04/06/17 at 00:00 Glucose (Glutose) 15 gm Q15M PRN BUCCAL DECREASED GLUCOSE; Start 04/06/17 at 00: 00 Mineral Oil (Mineral Oil) 30 ml TID PO Last administered on 04/08/17 09:41; Admin Dose 30 ML; Start 04/06/17 at 21:00 GEOVANY BENZ Apr 08, 2017 10:43
--- NOTE | 2017-04-08 10:47 | CONS ---
Date/Time of Note Date/Time of Note DATE: 04/08/17 TIME: 10:46 Assessment/Plan Assessment/Plan Chief Complaint/Hosp Course 1. CKD 2.Pancreatic cancer. 3. DM type II controlled 4. HTN. Problems: Additional Assessment/Plan 1. Optimization kidney function Consultation Date/Type/Reason Admit Date/Time Apr 05, 2017 at 21:32 Initial Consult Date 04/06/17 Type of Consultation: nephrology Reason for Consultation Dr King Referring Provider: JANE KING MD Exam/Review of Systems Vital Signs Vitals Vital Signs Date Time Temp Pulse Resp B/P Pulse Ox O2 Delivery O2 Flow Rate FiO2 04/08/17 08:13 97.6 54 16 130/76 98 04/05/17 22:02 Room Air Intake and Output 04/07/17 04/07/17 04/08/17 15:00 23:00 07:00 Intake Total 250 ml 1220 ml 890 ml Balance 250 ml 1220 ml 890 ml Exam Constitutional: alert, oriented Eyes: nl conjunctiva ENMT: nl external ears & nose Neck: supple Respiratory: clear to auscultation Cardiovascular: regular rate and rhythm Gastrointestinal: soft Results Result Diagram: 04/07/17 0420 04/07/17 0420 Results 24 hrs Laboratory Tests Test 04/07/17 11:51 04/07/17 17:08 04/07/17 22:02 04/08/17 04:30 Bedside Glucose 150 122 123 Triglycerides Level 85 Cholesterol Level 121 LDL Cholesterol, Calculated 71 HDL Cholesterol 33 Cholesterol/HDL Ratio 3.6 Test 04/08/17 08:03 Bedside Glucose 134 Medications Medications Current Medications Digoxin (Digoxin) 0.125 mg DAILY@13 PO Last administered on 04/07/17 12:58; Admin Dose 0.125 MG; Start 04/06/17 at 13:00 Gabapentin (Neurontin) 100 mg TID PO Last administered on 04/08/17 09:41; Admin Dose 100 MG; Start 04/06/17 at 09:00 Lisinopril (Zestril) 20 mg DAILY PO Last administered on 04/08/17 09:42; Admin Dose 20 MG; Start 04/06/17 at 09:00 Metoprolol Succinate (Toprol Xl) 100 mg DAILY PO Last administered on 04/07/17 09:14; Admin Dose 100 MG; Start 04/06/17 at 09:00 Atorvastatin Calcium (Lipitor) 10 mg DAILY@21 PO Last administered on 04/07/17 21:59; Admin Dose 10 MG; Start 04/06/17 at 21:00 Acetaminophen (Tylenol Tab) 500 mg Q4H PRN PO PAIN AND OR ELEVATED TEMP; Start 04/06/17 at 00:00 Morphine Sulfate (morphine) 4 mg Q4H PRN IV PAIN LEVEL 7-10 Last administered on 04/08/17 05:22; Admin Dose 4 MG; Start 04/06/17 at 00:00 Senna (Senokot) 2 tab BID PO Last administered on 04/08/17 09:41; Admin Dose 2 TAB; Start 04/06/17 at 09:00 Bisacodyl 5 mg 5 mg DAILY PRN PO CONSTIPATION; Start 04/06/17 at 00:00 Sodium Chloride (NS) 1,000 ml @ 75 mls/hr [id number] IV Last administered on 05:22; Admin Dose 75 MLS/HR; Start 04/06/17 at 00:00 Insulin Glargine (Lantus) 35 unit DAILY@08 SC Last administered on 04/08/17 08: 38; Admin Dose 35 UNIT; Start 04/06/17 at 08:00 Insulin Glargine (Lantus) 25 unit DAILY@20 SC Last administered on 04/07/17 22: 03; Admin Dose 25 UNIT; Start 04/06/17 at 20:00 Diagnostic Test (Pha) (Accu-Chek) 1 ea 02 XX ; Start 04/06/17 at 02:00 Ondansetron HCl (Zofran Inj) 4 mg Q6H PRN IV NAUSEA AND/OR VOMITING Last administered on 04/07/17 21:59; Admin Dose 4 MG; Start 04/06/17 at 00:00 Miscellaneous Information 1 ea NOTE XX ; Start 04/06/17 at 00:00 Glucose (Glutose) 15 gm Q15M PRN PO DECREASED GLUCOSE; Start 04/06/17 at 00:00 Glucose (Glutose) 22.5 gm Q15M PRN PO DECREASED GLUCOSE; Start 04/06/17 at 00:00 Dextrose (D50w Syringe) 25 ml Q15M PRN IV DECREASED GLUCOSE; Start 04/06/17 at 00:00 Dextrose (D50w Syringe) 50 ml Q15M PRN IV DECREASED GLUCOSE; Start 04/06/17 at 00:00 Glucagon (Glucagen) 1 mg Q15M PRN IM DECREASED GLUCOSE; Start 04/06/17 at 00:00 Glucose (Glutose) 15 gm Q15M PRN BUCCAL DECREASED GLUCOSE; Start 04/06/17 at 00: 00 Mineral Oil (Mineral Oil) 30 ml TID PO Last administered on 04/08/17 09:41; Admin Dose 30 ML; Start 04/06/17 at 21:00 PEG ROBBINS Apr 08, 2017 10:47
[2017-04-08] MEDS: morphine (ER) 15 MG TAB PO SCH ×2 (12:20→21:44)
[2017-04-08] MEDS: POLYETHYLENE GLYCOL 17 GM PACKET PO SCH (12:20)
--- NOTE | 2017-04-08 12:36 | PN ---
Date/Time of Note Date/Time of Note DATE: 04/08/17 TIME: 12:35 Assessment/Plan VTE Prophylaxis VTE Prophylaxis Intervention: other Lines/Catheters IV Catheter Type (from [facility]): Peripheral IV Urinary Cath still in place: No Assessment/Plan Chief Complaint/Hosp Course 1. CKD - monitor 2. Pancreatic cancer - workup/treatment to be determined 3. DM type II - controlled 4. HTN - monitor Problems: Subjective 24 Hr Interval Summary Free Text/Dictation Patient denies any discomfort Exam/Review of Systems Vital Signs Vitals Vital Signs Date Time Temp Pulse Resp B/P Pulse Ox O2 Delivery O2 Flow Rate FiO2 04/08/17 08:13 97.6 54 16 130/76 98 04/05/17 22:02 Room Air Intake and Output 04/07/17 04/07/17 04/08/17 15:00 23:00 07:00 Intake Total 250 ml 1220 ml 890 ml Balance 250 ml 1220 ml 890 ml Exam Constitutional: well developed Head: atraumatic, normocephalic Neck: supple Respiratory: clear to auscultation Cardiovascular: regular rate and rhythm Gastrointestinal: non-tender, soft Results Result Diagram: 04/07/17 0420 04/07/17 0420 Results 24 hrs Laboratory Tests Test 04/07/17 17:08 04/07/17 22:02 04/08/17 04:30 04/08/17 08:03 Bedside Glucose 122 123 134 Triglycerides Level 85 Cholesterol Level 121 LDL Cholesterol, Calculated 71 HDL Cholesterol 33 Cholesterol/HDL Ratio 3.6 Medications Medications Current Medications Digoxin (Digoxin) 0.125 mg DAILY@13 PO Last administered on 04/07/17 12:58; Admin Dose 0.125 MG; Start 04/06/17 at 13:00 Gabapentin (Neurontin) 100 mg TID PO Last administered on 04/08/17 09:41; Admin Dose 100 MG; Start 04/06/17 at 09:00 Lisinopril (Zestril) 20 mg DAILY PO Last administered on 04/08/17 09:42; Admin Dose 20 MG; Start 04/06/17 at 09:00 Metoprolol Succinate (Toprol Xl) 100 mg DAILY PO Last administered on 04/07/17 09:14; Admin Dose 100 MG; Start 04/06/17 at 09:00 Atorvastatin Calcium (Lipitor) 10 mg DAILY@21 PO Last administered on 04/07/17 21:59; Admin Dose 10 MG; Start 04/06/17 at 21:00 Acetaminophen (Tylenol Tab) 500 mg Q4H PRN PO PAIN AND OR ELEVATED TEMP; Start 04/06/17 at 00:00 Morphine Sulfate (morphine) 4 mg Q4H PRN IV PAIN LEVEL 7-10 Last administered on 04/08/17 05:22; Admin Dose 4 MG; Start 04/06/17 at 00:00 Senna (Senokot) 2 tab BID PO Last administered on 04/08/17 09:41; Admin Dose 2 TAB; Start 04/06/17 at 09:00 Bisacodyl 5 mg 5 mg DAILY PRN PO CONSTIPATION; Start 04/06/17 at 00:00 Sodium Chloride (NS) 1,000 ml @ 75 mls/hr [id number] IV Last administered on 05:22; Admin Dose 75 MLS/HR; Start 04/06/17 at 00:00 Insulin Glargine (Lantus) 35 unit DAILY@08 SC Last administered on 04/08/17 08: 38; Admin Dose 35 UNIT; Start 04/06/17 at 08:00 Insulin Glargine (Lantus) 25 unit DAILY@20 SC Last administered on 04/07/17 22: 03; Admin Dose 25 UNIT; Start 04/06/17 at 20:00 Diagnostic Test (Pha) (Accu-Chek) 1 ea 02 XX ; Start 04/06/17 at 02:00 Ondansetron HCl (Zofran Inj) 4 mg Q6H PRN IV NAUSEA AND/OR VOMITING Last administered on 04/07/17 21:59; Admin Dose 4 MG; Start 04/06/17 at 00:00 Miscellaneous Information 1 ea NOTE XX ; Start 04/06/17 at 00:00 Glucose (Glutose) 15 gm Q15M PRN PO DECREASED GLUCOSE; Start 04/06/17 at 00:00 Glucose (Glutose) 22.5 gm Q15M PRN PO DECREASED GLUCOSE; Start 04/06/17 at 00:00 Dextrose (D50w Syringe) 25 ml Q15M PRN IV DECREASED GLUCOSE; Start 04/06/17 at 00:00 Dextrose (D50w Syringe) 50 ml Q15M PRN IV DECREASED GLUCOSE; Start 04/06/17 at 00:00 Glucagon (Glucagen) 1 mg Q15M PRN IM DECREASED GLUCOSE; Start 04/06/17 at 00:00 Glucose (Glutose) 15 gm Q15M PRN BUCCAL DECREASED GLUCOSE; Start 04/06/17 at 00: 00 Mineral Oil (Mineral Oil) 30 ml TID PO Last administered on 04/08/17 09:41; Admin Dose 30 ML; Start 04/06/17 at 21:00 Morphine Sulfate (Ms Contin (Er)) 15 mg BID PO Last administered on 04/08/17 12 :20; Admin Dose 15 MG; Start 04/08/17 at 11:30 Polyethylene Glycol (Miralax) 17 gm DAILY PO Last administered on 04/08/17 12: 20; Admin Dose 17 GM; Start 04/08/17 at 12:00 CLARA WILSON Apr 08, 2017 12:36
--- NOTE | 2017-04-08 13:49 | CONS ---
Date/Time of Note Date/Time of Note DATE: 04/08/17 TIME: 13:42 Assessment/Plan Assessment/Plan Additional Assessment/Plan Mr. Mccray is a pleasant 66 yo male with findings of a pancreatic body mass with concern for extension to the Celiac axis. I spent a long time with pt and family going over the findings and likely pathophysiology of disease, including treatment options. If pt truly has a primary pancreatic malignancy with extension and involvement of the celiac axis, then he will unfortunately not be a surgical candidate. I have re-reviewed the imaging CT and am concerned for the finding of gastric wall thickness. Pt has never had an EGD, and thus I strongly recommend he has has one. I have spoken with DINO Fernandes and we are both in agreement that pt will benefit from an EUS to further evaluate this area and obtain biopsies for diagnostic purposes. Pt's CA 19-9 is mildly elevated at 56 / 64 which is above the normal level of 37. Thus, this could be a pancreatic adenocarcinoma, however, cannot rule out a PNET (pancreatic Neuroendocrine Tumor). Thus, I recommend sending a Chromogranin A level. I will continue to follow pt during this admission with plans to see him as an outpt as well. I want to thank Dr. Victoria for allowing me to partake in the care of this wonderful patient. Consultation Date/Type/Reason Admit Date/Time Apr 05, 2017 at 21:32 Date of Consultation: Apr 08, 2017 Type of Consultation: [facility] Surgery Reason for Consultation Surgical evaluation of Pancreatic mass Referring Provider: KAYA BENEDICT MD Hx of Present Illness I had the pleasure of meeting this 66 yo female with findings of a Pancreatic mass located in the mid body of the pancreas measurin.4 cm x 2.3cm, with findings concerning for Celiac axis involvement. HPI: 66 yo male with 1 month of epigastric pain that has gradually worsened. He denies significant weight loss or jaundice. A CT was done as an outpatient that revealed a pancreatic mass. Pt was send to Dr. Benedict as an out patient for consideration of a whipple and was noted to have severe epigastric pain. Pt was thus sent to the ER for pain management. Pt on further questioning tells me that his pain was probably there as of about 2 months ago in the epigastric area with radiation to the midback. The pain was there without food, all day and all night, about a 7/10. He denies any nausea, vomiting, no diarrhea. He relates a history of reflux x 20 years. There is no history of smoking, no alcohol use. He tried over the counter antacids. He eventually saw his PCP Dr. Simone Egan and then referred to Dr. Benedict. He has never had an EGD or colonoscopy. There is no family history of any cancers CT scan: Visualized lower thorax: The lung bases are clear of acute infiltrates, calcified granulomata of the right lower lobe are present. No pleural effusions are present there is mild left-sided pleural thickening and subtle calcifications of the U left lower lobe pleura. The visualized heart is mildly enlarged. Liver, gallbladder, pancreas and spleen: Normal hepatic contour, attenuation in size. There is no evidence for liver mass or ductal dilatation. The gallbladder is unremarkable. No common bile duct dilatation is evident. The pancreatic body demonstrates an amorphous space occupying lesion likely correlate with the provided history the abnormality extending beyond the pancreatic parenchyma and encasing the superior mesenteric artery. The area of suspected neoplasm is estimated at 2.4 x 2.3 cm (series 3 image 48). Pancreatic duct dilatation of 5 mm distal to the pancreatic body mass is present. There is fat deposition within the pancreatic head including the uncinate process. The spleen is normal, not enlarged. Adrenal glands and genitourinary system: The adrenal glands are normal bilaterally. The kidneys are normal in size, contour and attenuation with no evidence for masses, calculi or hydronephrosis. Symmetric enhancement of the kidneys is present without evidence of pyelonephritis . The ureters are unremarkable. The urinary bladder shows no abnormality. The prostate gland is normal in size. The visualized scrotum shows no abnormality. Gastrointestinal system: The stomach, small bowel and large intestine are normal in caliber. There is no evidence of obstruction, ileus or inflammation. The appendix and surrounding fat are normal. A constipation pattern is suggested with a few diverticula of the distal colon but no diverticulitis or colitis. Peritoneum, retroperitoneum, vessels and lymph nodes: The abdominal aorta is normal in caliber. There is moderate to severe aortic and iliac system atherosclerotic calcification. Inferior vena cava is normal in caliber. Retroperitoneal lymph nodes measure less than 1 cm in short axis, there are no lymph nodes meet the criteria for adenopathy. The peritoneal cavity is normal with no evidence for ascites. No pneumoperitoneum is present Osseous structures and musculoskeletal system: There is no evidence for acute osseous abnormality or muscular pathology. No subcutaneous abnormalities are present. IMPRESSION: 1. Amorphous mass arising from the posterior pancreatic body and encasing the superior mesenteric artery is estimated at 2.4 x 2.3 cm with associated pancreatic duct dilatation of 5 mm distal to the mass, findings correlating with the provided history. 2. No evidence of adenopathy or visceral metastatic disease. 3. Constipation pattern with some diverticular disease of the distal colon but no evidence of diverticulitis. 4. Moderate to severe atherosclerotic calcification of the aorta and iliac systems. 5. Incidental chronic granulomatous disease of the right lower lobe with pleural calcifications and pleural thickening in the left lower hemithorax. Constitutional: no complaints, other (acidity in mouth) Eyes: no complaints ENT: no complaints Respiratory: no complaints Cardiovascular: no complaints Gastrointestinal: decreased appetite, pain Genitourinary: no complaints Musculoskeletal: back pain Skin: no complaints Neurologic: no complaints Endocrine: no complaints Psychological: nl mood/affect, no complaints Past Medical History Medical History: diabetes, GERD, other (Arrhythmias x 20 years. ) Past Surgical History Past Surgical Hx: no surgical history, other (Unknown cardiac procedure approximately 15 years ago) Family History Significant Family History: no pertinent family hx Social History Alcohol Use: none Smoking Status: Never smoker Drug Use: none Exam/Review of Systems Vital Signs Vitals Vital Signs Date Time Temp Pulse Resp B/P Pulse Ox O2 Delivery O2 Flow Rate FiO2 04/08/17 08:13 97.6 54 16 130/76 98 04/05/17 22:02 Room Air Intake and Output 04/07/17 04/07/17 04/08/17 15:00 23:00 07:00 Intake Total 250 ml 1220 ml 890 ml Balance 250 ml 1220 ml 890 ml Exam Constitutional: alert, oriented, well developed Psych: nl mood/affect, no complaints Head: normocephalic Eyes: EOMI, nl conjunctiva ENMT: nl external ears & nose Neck: non-tender, supple Respiratory: clear to auscultation, normal air movement Cardiovascular: nl pulses, regular rate and rhythm Gastrointestinal: bowel sounds (normal ), non-tender, soft, surgical scars ( none) Genitourinary - Male: nl penis Musculoskeletal: nl extremities to inspection, nl gait and stance Extremities: normal pulses 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, nl mental status, nl speech, nl strength Skin: nl turgor Lymph: nl lymph nodes Results Result Diagram: 04/07/1741904/07/17 0420 Results 24 hrs Laboratory Tests Test 04/07/17 17:08 04/07/17 22:02 04/08/17 04:30 04/08/17 08:03 Bedside Glucose 122 123 134 Triglycerides Level 85 Cholesterol Level 121 LDL Cholesterol, Calculated 71 HDL Cholesterol 33 Cholesterol/HDL Ratio 3.6 Test 04/08/17 12:28 Bedside Glucose 173 Medications Medications Current Medications Digoxin (Digoxin) 0.125 mg DAILY@13 PO Last administered on 04/07/17 12:58; Admin Dose 0.125 MG; Start 04/06/17 at 13:00 Gabapentin (Neurontin) 100 mg TID PO Last administered on 04/08/17 09:41; Admin Dose 100 MG; Start 04/06/17 at 09:00 Lisinopril (Zestril) 20 mg DAILY PO Last administered on 04/08/17 09:42; Admin Dose 20 MG; Start 04/06/17 at 09:00 Metoprolol Succinate (Toprol Xl) 100 mg DAILY PO Last administered on 04/07/17 09:14; Admin Dose 100 MG; Start 04/06/17 at 09:00 Atorvastatin Calcium (Lipitor) 10 mg DAILY@21 PO Last administered on 04/07/17 21:59; Admin Dose 10 MG; Start 04/06/17 at 21:00 Acetaminophen (Tylenol Tab) 500 mg Q4H PRN PO PAIN AND OR ELEVATED TEMP; Start 04/06/17 at 00:00 Morphine Sulfate (morphine) 4 mg Q4H PRN IV PAIN LEVEL 7-10 Last administered on 04/08/17 05:22; Admin Dose 4 MG; Start 04/06/17 at 00:00 Senna (Senokot) 2 tab BID PO Last administered on 04/08/17 09:41; Admin Dose 2 TAB; Start 04/06/17 at 09:00 Bisacodyl 5 mg 5 mg DAILY PRN PO CONSTIPATION; Start 04/06/17 at 00:00 Sodium Chloride (NS) 1,000 ml @ 75 mls/hr [id number] IV Last administered on 05:22; Admin Dose 75 MLS/HR; Start 04/06/17 at 00:00 Insulin Glargine (Lantus) 35 unit DAILY@08 SC Last administered on 04/08/17 08: 38; Admin Dose 35 UNIT; Start 04/06/17 at 08:00 Insulin Glargine (Lantus) 25 unit DAILY@20 SC Last administered on 04/07/17 22: 03; Admin Dose 25 UNIT; Start 04/06/17 at 20:00 Diagnostic Test (Pha) (Accu-Chek) 1 ea 02 XX ; Start 04/06/17 at 02:00 Ondansetron HCl (Zofran Inj) 4 mg Q6H PRN IV NAUSEA AND/OR VOMITING Last administered on 04/07/17 21:59; Admin Dose 4 MG; Start 04/06/17 at 00:00 Miscellaneous Information 1 ea NOTE XX ; Start 04/06/17 at 00:00 Glucose (Glutose) 15 gm Q15M PRN PO DECREASED GLUCOSE; Start 04/06/17 at 00:00 Glucose (Glutose) 22.5 gm Q15M PRN PO DECREASED GLUCOSE; Start 04/06/17 at 00:00 Dextrose (D50w Syringe) 25 ml Q15M PRN IV DECREASED GLUCOSE; Start 04/06/17 at 00:00 Dextrose (D50w Syringe) 50 ml Q15M PRN IV DECREASED GLUCOSE; Start 04/06/17 at 00:00 Glucagon (Glucagen) 1 mg Q15M PRN IM DECREASED GLUCOSE; Start 04/06/17 at 00:00 Glucose (Glutose) 15 gm Q15M PRN BUCCAL DECREASED GLUCOSE; Start 04/06/17 at 00: 00 Mineral Oil (Mineral Oil) 30 ml TID PO Last administered on 04/08/17 09:41; Admin Dose 30 ML; Start 04/06/17 at 21:00 Morphine Sulfate (Ms Contin (Er)) 15 mg BID PO Last administered on 04/08/17 12 :20; Admin Dose 15 MG; Start 04/08/17 at 11:30 Polyethylene Glycol (Miralax) 17 gm DAILY PO Last administered on 04/08/17 12: 20; Admin Dose 17 GM; Start 04/08/17 at 12:00 MO MAHONEY Apr 08, 2017 13:48
[2017-04-08 14:00] VITALS: BP 128/78; RESP 18
--- NOTE | 2017-04-08 14:31 | RADRPT ---
Vent Rate: 94 bpm RR Interval: 0 msec VA Interval: 0 msec QRS Duration: 154 msec QT Interval: 378 msec QTC Interval: 472 msec P-R-T [place]: 0 - 55 - 34 degrees Atrial fibrillation Right bundle branch block Abnormal ECG No previous tracing available for comparison Electronically Signed By: Parish Medellin [id number]
[2017-04-08] MEDS: DIGOXIN 0.125 MG TAB PO SCH (14:44)
[2017-04-08] MEDS ORDERED: MINERAL OIL 133 ML ENEMA PR ONE (19:30)
[2017-04-08 19:50] VITALS: BP 127/78; RESP 20
[2017-04-08] MEDS: ATORVASTATIN 10 MG TAB PO SCH (21:43)
[2017-04-08] MEDS ORDERED: MINERAL OIL 133 ML ENEMA PR SCH (22:00)
[2017-04-09] MEDS: ACCU-CHEK XX SCH (02:00)
[2017-04-09 02:06] VITALS: BP 130/67; RESP 20
[2017-04-09] MEDS: SOD CHLORIDE 0.9% 1,000 ML IV SCH ×2 (03:01→17:14)
[2017-04-09] MEDS: PANTOPRAZOLE (EC) 40 MG TAB PO SCH (07:57)
[2017-04-09] MEDS: INSULIN ASPART [NOVOLOG] 3 ML PEN SC SCH ×7 (08:00→21:00)
[2017-04-09 08:06] VITALS: BP 131/86; RESP 16
[2017-04-09] MEDS: morphine (ER) 15 MG TAB PO SCH ×2 (09:30→20:28)
[2017-04-09] MEDS: MINERAL OIL 30ML CUP PO SCH ×3 (09:30→20:27)
[2017-04-09] MEDS: GABAPENTIN 100 MG CAP PO SCH ×3 (09:30→20:27)
[2017-04-09] MEDS: POLYETHYLENE GLYCOL 17 GM PACKET PO SCH (09:30)
[2017-04-09] MEDS: SENNA TAB PO SCH ×2 (09:31→20:27)
[2017-04-09] MEDS: METOPROLOL (XL) 100 MG TAB PO SCH (09:34)
[2017-04-09] MEDS: LISINOPRIL 20 MG TAB PO SCH (09:34)
[2017-04-09] MEDS: INSULIN GLARGINE [LANtus] 3 ML PEN SC SCH ×2 (09:36→20:00)
--- NOTE | 2017-04-09 12:29 | PN ---
Date/Time of Note Date/Time of Note DATE: 04/09/17 TIME: 12:28 Assessment/Plan VTE Prophylaxis VTE Prophylaxis Intervention: other Lines/Catheters [facility] Type [facility]from [facility] Peripheral IV Urinary Cath still in place: No Assessment/Plan Chief Complaint/Hosp Course 1. CKD - monitor 2. Pancreatic cancer - workup/treatment to be determined 3. DM type II - controlled 4. HTN - monitor Problems: Subjective 24 Hr Interval Summary Free Text/Dictation Patient has no complaints Exam/Review of Systems Vital Signs Vitals Vital Signs Date Time Temp Pulse Resp B/P Pulse Ox O2 Delivery O2 Flow Rate FiO2 04/09/17 08:06 98.8 58 16 131/86 95 04/05/17 22:02 Room Air Intake and Output 04/08/17 04/08/17 04/09/17 15:00 23:00 07:00 Intake Total 1840 ml 1000 ml Balance 1840 ml 1000 ml Exam Constitutional: well developed Head: atraumatic, normocephalic Neck: supple Respiratory: clear to auscultation Cardiovascular: regular rate and rhythm Gastrointestinal: non-tender, soft Extremities: normal pulses Results Result Diagram: 04/07/17 0420 04/07/17 0420 Results 24 hrs Laboratory Tests Test 04/08/17 17:55 04/08/17 18:29 04/08/17 21:42 04/09/17 08:12 Bedside Glucose 146 171 174 58 L Test 04/09/17 08:29 04/09/17 09:01 04/09/17 12:13 Bedside Glucose 75 134 179 Medications Medications Current Medications Digoxin (Digoxin) 0.125 mg DAILY@13 PO Last administered on 04/08/17 14:44; Admin Dose 0.125 MG; Start 04/06/17 at 13:00 Gabapentin (Neurontin) 100 mg TID PO Last administered on 04/09/17 09:30; Admin Dose 100 MG; Start 04/06/17 at 09:00 Lisinopril (Zestril) 20 mg DAILY PO Last administered on 04/09/17 09:34; Admin Dose 20 MG; Start 04/06/17 at 09:00 Metoprolol Succinate (Toprol Xl) 100 mg DAILY PO Last administered on 04/09/17 09:34; Admin Dose 100 MG; Start 04/06/17 at 09:00 Atorvastatin Calcium (Lipitor) 10 mg DAILY@21 PO Last administered on 04/08/17 21:43; Admin Dose 10 MG; Start 04/06/17 at 21:00 Acetaminophen (Tylenol Tab) 500 mg Q4H PRN PO PAIN AND OR ELEVATED TEMP; Start 04/06/17 at 00:00 Morphine Sulfate (morphine) 4 mg Q4H PRN IV PAIN LEVEL 7-10 Last administered on 04/08/17 05:22; Admin Dose 4 MG; Start 04/06/17 at 00:00 Senna (Senokot) 2 tab BID PO Last administered on 04/09/17 09:31; Admin Dose 2 TAB; Start 04/06/17 at 09:00 Bisacodyl 5 mg 5 mg DAILY PRN PO CONSTIPATION; Start 04/06/17 at 00:00 Sodium Chloride (NS) 1,000 ml @ 75 mls/hr [id number] IV Last administered on 03:01; Admin Dose 75 MLS/HR; Start 04/06/17 at 00:00 Insulin Glargine (Lantus) 25 unit DAILY@20 SC Last administered on 04/08/17 21: 48; Admin Dose 25 UNIT; Start 04/06/17 at 20:00 Diagnostic Test (Pha) (Accu-Chek) 1 ea 02 XX ; Start 04/06/17 at 02:00 Ondansetron HCl (Zofran Inj) 4 mg Q6H PRN IV NAUSEA AND/OR VOMITING Last administered on 04/07/17 21:59; Admin Dose 4 MG; Start 04/06/17 at 00:00 Miscellaneous Information 1 ea NOTE XX ; Start 04/06/17 at 00:00 Glucose (Glutose) 15 gm Q15M PRN PO DECREASED GLUCOSE; Start 04/06/17 at 00:00 Glucose (Glutose) 22.5 gm Q15M PRN PO DECREASED GLUCOSE; Start 04/06/17 at 00:00 Dextrose (D50w Syringe) 25 ml Q15M PRN IV DECREASED GLUCOSE; Start 04/06/17 at 00:00 Dextrose (D50w Syringe) 50 ml Q15M PRN IV DECREASED GLUCOSE; Start 04/06/17 at 00:00 Glucagon (Glucagen) 1 mg Q15M PRN IM DECREASED GLUCOSE; Start 04/06/17 at 00:00 Glucose (Glutose) 15 gm Q15M PRN BUCCAL DECREASED GLUCOSE; Start 04/06/17 at 00: 00 Mineral Oil (Mineral Oil) 30 ml TID PO Last administered on 04/09/17 09:30; Admin Dose 30 ML; Start 04/06/17 at 21:00 Morphine Sulfate (Ms Contin (Er)) 15 mg BID PO Last administered on 04/09/17 09 :30; Admin Dose 15 MG; Start 04/08/17 at 11:30 Polyethylene Glycol (Miralax) 17 gm DAILY PO Last administered on 04/09/17 09: 30; Admin Dose 17 GM; Start 04/08/17 at 12:00 Insulin Glargine (Lantus) 30 unit DAILY@08 SC Last administered on 04/09/17 09: 36; Admin Dose 30 UNIT; Start 04/09/17 at 09:00 CLARA WILSON Y Apr 09, 2017 12:29
[2017-04-09] MEDS: DIGOXIN 0.125 MG TAB PO SCH (12:30)
--- NOTE | 2017-04-09 13:16 | CONS ---
Date/Time of Note Date/Time of Note DATE: 04/09/17 TIME: 13:02 Assessment/Plan Assessment/Plan Chief Complaint/Hosp Course IMp: 1.AF-rate controlled/remains in by ECG today 2.abnl ecg-negatve trop/no cp 3.HTN 4.Pancreatic mass 5.DM 6. Cardiomyopathy-Decreased LVEF by echo this admit Recc: -Tele -serial ecg's -Continue statin -Continue zestril/toprol xl -Consider lexiscan to assess etiology of cardiomyopathy -Ongoing GI/Onc/surgical eval of pancreatic mass Problems: Consultation Date/Type/Reason Admit Date/Time Apr 05, 2017 at 21:32 Initial Consult Date 04/06/17 Type of Consultation: cardiology Reason for Consultation AF/cardiomyopathy Referring Provider: KAYA KAUR MD Exam/Review of Systems Vital Signs Vitals Vital Signs Date Time Temp Pulse Resp B/P Pulse Ox O2 Delivery O2 Flow Rate FiO2 04/09/17 08:06 98.8 58 16 131/86 95 04/05/17 22:02 Room Air Intake and Output 04/08/17 04/08/17 04/09/17 15:00 23:00 07:00 Intake Total 1840 ml 1000 ml Balance 1840 ml 1000 ml Exam Review of Systems: CONSTITUTIONAL: No fevers, chills. PULMONARY: No sob CARDIOVASCULAR: No chest pain/palpitations GASTROINTESTINAL: MIld abd discomfort GENITOURINARY: No hematuria/dysuria. MUSCULOSKELETAL: No myagias/arthalgias. PSYCHIATRIC: The patient denies depression. NEUROLOGIC: No weakness Constitutional: alert, oriented Psych: no complaints Head: normocephalic ENMT: mucosa pink and moist Neck: jvd (8-9 cm water), supple Respiratory: diminished breath sounds (at bases/B) Cardiovascular: regular rate and rhythm Gastrointestinal: non-tender, soft Musculoskeletal: muscle tone (normal) Extremities: edema (none) Neurological: other (No focal deficits) Results Result Diagram: 04/07/1741904/07/17419 Results 24 hrs Laboratory Tests Test 04/08/17 17:55 04/08/17 18:29 04/08/17 21:42 04/09/17 08:12 Bedside Glucose 146 171 174 58 L Test 04/09/17 08:29 04/09/17 09:01 04/09/17 12:13 Bedside Glucose 75 134 179 Medications Medications Current Medications Digoxin (Digoxin) 0.125 mg DAILY@13 PO Last administered on 04/09/17 12:30; Admin Dose 0.125 MG; Start 04/06/17 at 13:00 Gabapentin (Neurontin) 100 mg TID PO Last administered on 04/09/17 12:25; Admin Dose 100 MG; Start 04/06/17 at 09:00 Lisinopril (Zestril) 20 mg DAILY PO Last administered on 04/09/17 09:34; Admin Dose 20 MG; Start 04/06/17 at 09:00 Metoprolol Succinate (Toprol Xl) 100 mg DAILY PO Last administered on 04/09/17 09:34; Admin Dose 100 MG; Start 04/06/17 at 09:00 Atorvastatin Calcium (Lipitor) 10 mg DAILY@21 PO Last administered on 04/08/17 21:43; Admin Dose 10 MG; Start 04/06/17 at 21:00 Acetaminophen (Tylenol Tab) 500 mg Q4H PRN PO PAIN AND OR ELEVATED TEMP; Start 04/06/17 at 00:00 Morphine Sulfate (morphine) 4 mg Q4H PRN IV PAIN LEVEL 7-10 Last administered on 04/08/17 05:22; Admin Dose 4 MG; Start 04/06/17 at 00:00 Senna (Senokot) 2 tab BID PO Last administered on 04/09/17 09:31; Admin Dose 2 TAB; Start 04/06/17 at 09:00 Bisacodyl 5 mg 5 mg DAILY PRN PO CONSTIPATION; Start 04/06/17 at 00:00 Sodium Chloride (NS) 1,000 ml @ 75 mls/hr [id number] IV Last administered on 03:01; Admin Dose 75 MLS/HR; Start 04/06/17 at 00:00 Insulin Glargine (Lantus) 25 unit DAILY@20 SC Last administered on 04/08/17 21: 48; Admin Dose 25 UNIT; Start 04/06/17 at 20:00 Diagnostic Test (Pha) (Accu-Chek) 1 ea 02 XX ; Start 04/06/17 at 02:00 Ondansetron HCl (Zofran Inj) 4 mg Q6H PRN IV NAUSEA AND/OR VOMITING Last administered on 04/07/17 21:59; Admin Dose 4 MG; Start 04/06/17 at 00:00 Miscellaneous Information 1 ea NOTE XX ; Start 04/06/17 at 00:00 Glucose (Glutose) 15 gm Q15M PRN PO DECREASED GLUCOSE; Start 04/06/17 at 00:00 Glucose (Glutose) 22.5 gm Q15M PRN PO DECREASED GLUCOSE; Start 04/06/17 at 00:00 Dextrose (D50w Syringe) 25 ml Q15M PRN IV DECREASED GLUCOSE; Start 04/06/17 at 00:00 Dextrose (D50w Syringe) 50 ml Q15M PRN IV DECREASED GLUCOSE; Start 04/06/17 at 00:00 Glucagon (Glucagen) 1 mg Q15M PRN IM DECREASED GLUCOSE; Start 04/06/17 at 00:00 Glucose (Glutose) 15 gm Q15M PRN BUCCAL DECREASED GLUCOSE; Start 04/06/17 at 00: 00 Mineral Oil (Mineral Oil) 30 ml TID PO Last administered on 04/09/17 12:25; Admin Dose 30 ML; Start 04/06/17 at 21:00 Morphine Sulfate (Ms Contin (Er)) 15 mg BID PO Last administered on 04/09/17 09 :30; Admin Dose 15 MG; Start 04/08/17 at 11:30 Polyethylene Glycol (Miralax) 17 gm DAILY PO Last administered on 04/09/17 09: 30; Admin Dose 17 GM; Start 04/08/17 at 12:00 Insulin Glargine (Lantus) 30 unit DAILY@08 SC Last administered on 04/09/17 09: 36; Admin Dose 30 UNIT; Start 04/09/17 at 09:00 SONA FRANK Apr 09, 2017 13:15
--- NOTE | 2017-04-09 14:47 | PN ---
Date/Time of Note Date/Time of Note DATE: 04/09/17 TIME: 14:46 Assessment/Plan VTE Prophylaxis VTE Prophylaxis Intervention: other Lines/Catheters IV C[facility]ter Type (from [facility]): Peripheral IV Urinary Cath still in place: No Assessment/Plan Chief Complaint/Hosp Course PANCREATIC MASS ELEVATED CA 19 WK LOSS HX AFIB PLAN PER SURGERY Problems: Subjective 24 Hr Interval Summary Respiratory: no complaints Cardiovascular: no complaints Exam/Review of Systems Vital Signs Vitals Vital Signs Date Time Temp Pulse Resp B/P Pulse Ox O2 Delivery O2 Flow Rate FiO2 04/09/17 08:06 98.8 58 16 131/86 95 04/05/17 22:02 Room Air Intake and Output 04/08/17 04/08/17 04/09/17 15:00 23:00 07:00 Intake Total 1840 ml 1000 ml Balance 1840 ml 1000 ml Exam Neck: supple Respiratory: clear to auscultation Cardiovascular: regular rate and rhythm Gastrointestinal: soft Musculoskeletal: nl extremities to inspection Extremities: normal pulses Results Result Diagram: 04/07/17 0420 04/07/17 0420 Results 24 hrs Laboratory Tests Test 04/08/17 17:55 04/08/17 18:29 04/08/17 21:42 04/09/17 08:12 Bedside Glucose 146 171 174 58 L Test 04/09/17 08:29 04/09/17 09:01 04/09/17 12:13 Bedside Glucose 75 134 179 Medications Medications Current Medications Digoxin (Digoxin) 0.125 mg DAILY@13 PO Last administered on 04/09/17 12:30; Admin Dose 0.125 MG; Start 04/06/17 at 13:00 Gabapentin (Neurontin) 100 mg TID PO Last administered on 04/09/17 12:25; Admin Dose 100 MG; Start 04/06/17 at 09:00 Lisinopril (Zestril) 20 mg DAILY PO Last administered on 04/09/17 09:34; Admin Dose 20 MG; Start 04/06/17 at 09:00 Metoprolol Succinate (Toprol Xl) 100 mg DAILY PO Last administered on 04/09/17 09:34; Admin Dose 100 MG; Start 04/06/17 at 09:00 Atorvastatin Calcium (Lipitor) 10 mg DAILY@21 PO Last administered on 04/08/17 21:43; Admin Dose 10 MG; Start 04/06/17 at 21:00 Acetaminophen (Tylenol Tab) 500 mg Q4H PRN PO PAIN AND OR ELEVATED TEMP; Start 04/06/17 at 00:00 Morphine Sulfate (morphine) 4 mg Q4H PRN IV PAIN LEVEL 7-10 Last administered on 04/08/17 05:22; Admin Dose 4 MG; Start 04/06/17 at 00:00 Senna (Senokot) 2 tab BID PO Last administered on 04/09/17 09:31; Admin Dose 2 TAB; Start 04/06/17 at 09:00 Bisacodyl 5 mg 5 mg DAILY PRN PO CONSTIPATION; Start 04/06/17 at 00:00 Sodium Chloride (NS) 1,000 ml @ 75 mls/hr [id number] IV Last administered on 03:01; Admin Dose 75 MLS/HR; Start 04/06/17 at 00:00 Insulin Glargine (Lantus) 25 unit DAILY@20 SC Last administered on 04/08/17 21: 48; Admin Dose 25 UNIT; Start 04/06/17 at 20:00 Diagnostic Test (Pha) (Accu-Chek) 1 ea 02 XX ; Start 04/06/17 at 02:00 Ondansetron HCl (Zofran Inj) 4 mg Q6H PRN IV NAUSEA AND/OR VOMITING Last administered on 04/07/17 21:59; Admin Dose 4 MG; Start 04/06/17 at 00:00 Miscellaneous Information 1 ea NOTE XX ; Start 04/06/17 at 00:00 Glucose (Glutose) 15 gm Q15M PRN PO DECREASED GLUCOSE; Start 04/06/17 at 00:00 Glucose (Glutose) 22.5 gm Q15M PRN PO DECREASED GLUCOSE; Start 04/06/17 at 00:00 Dextrose (D50w Syringe) 25 ml Q15M PRN IV DECREASED GLUCOSE; Start 04/06/17 at 00:00 Dextrose (D50w Syringe) 50 ml Q15M PRN IV DECREASED GLUCOSE; Start 04/06/17 at 00:00 Glucagon (Glucagen) 1 mg Q15M PRN IM DECREASED GLUCOSE; Start 04/06/17 at 00:00 Glucose (Glutose) 15 gm Q15M PRN BUCCAL DECREASED GLUCOSE; Start 04/06/17 at 00: 00 Mineral Oil (Mineral Oil) 30 ml TID PO Last administered on 04/09/17 12:25; Admin Dose 30 ML; Start 04/06/17 at 21:00 Morphine Sulfate (Ms Contin (Er)) 15 mg BID PO Last administered on 04/09/17 09 :30; Admin Dose 15 MG; Start 04/08/17 at 11:30 Polyethylene Glycol (Miralax) 17 gm DAILY PO Last administered on 04/09/17 09: 30; Admin Dose 17 GM; Start 04/08/17 at 12:00 Insulin Glargine (Lantus) 30 unit DAILY@08 SC Last administered on 04/09/17 09: 36; Admin Dose 30 UNIT; Start 04/09/17 at 09:00 JANE KING MD Apr 09, 2017 14:47
[2017-04-09 14:57] VITALS: BP 96/62; RESP 16
--- NOTE | 2017-04-09 17:26 | CONS ---
Date/Time of Note Date/Time of Note DATE: 04/09/17 TIME: 17:24 Assessment/Plan Assessment/Plan Additional Assessment/Plan 1. 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 GERD and abdominal pain 3. Diabetes mellitus 4. Hypertension Plan We will do EGD to make sure there is no underlying stomach pathology Patient will be scheduled for EUS as outpatient. I discussed with Dr. Lydia Muniz and also with the hepatobiliary surgeon. For some reason my consultation report is not in the computer. Consultation Date/Type/Reason Admit Date/Time Apr 05, 2017 at 21:32 Initial Consult Date 04/08/17 Type of Consultation: cardiology Referring Provider: KAYA KAUR MD 24 HR Interval Summary Constitutional: improved Exam/Review of Systems Vital Signs Vitals Vital Signs Date Time Temp Pulse Resp B/P Pulse Ox O2 Delivery O2 Flow Rate FiO2 04/09/17 14:57 98.5 53 16 96/62 95 04/05/17 22:02 Room Air Intake and Output 04/08/17 04/08/17 04/09/17 15:00 23:00 07:00 Intake Total 1840 ml 1000 ml Balance 1840 ml 1000 ml Exam Constitutional: alert, oriented, well developed Psych: nl mood/affect, no complaints Head: atraumatic, normocephalic Eyes: EOMI, PERRL, nl conjunctiva, nl lids, nl sclera ENMT: nl external ears & nose, nl lips & teeth, nl nasal mucosa & septum Neck: non-tender, supple Respiratory: clear to auscultation, normal air movement Cardiovascular: nl pulses, regular rate and rhythm Gastrointestinal: nl liver, spleen, non-tender, soft Musculoskeletal: nl extremities to inspection, nl gait and stance Extremities: normal pulses Neurological: CONDENSER TUBE TENDER II-XII intact, nl mental status, nl speech, nl strength Skin: nl turgor, No rash or lesions Lymph: nl lymph nodes Results Result Diagram: 04/07/170 04/07/17419 Results 24 hrs Laboratory Tests Test 04/08/17 17:55 04/08/17 18:29 04/08/17 21:42 04/09/17 08:12 Bedside Glucose 146 171 174 58 L Test 04/09/17 08:29 04/09/17 09:01 04/09/17 12:13 Bedside Glucose 75 134 179 Medications Medications Current Medications Digoxin (Digoxin) 0.125 mg DAILY@13 PO Last administered on 04/09/17 12:30; Admin Dose 0.125 MG; Start 04/06/17 at 13:00 Gabapentin (Neurontin) 100 mg TID PO Last administered on 04/09/17 12:25; Admin Dose 100 MG; Start 04/06/17 at 09:00 Lisinopril (Zestril) 20 mg DAILY PO Last administered on 04/09/17 09:34; Admin Dose 20 MG; Start 04/06/17 at 09:00 Metoprolol Succinate (Toprol Xl) 100 mg DAILY PO Last administered on 04/09/17 09:34; Admin Dose 100 MG; Start 04/06/17 at 09:00 Atorvastatin Calcium (Lipitor) 10 mg DAILY@21 PO Last administered on 04/08/17 21:43; Admin Dose 10 MG; Start 04/06/17 at 21:00 Acetaminophen (Tylenol Tab) 500 mg Q4H PRN PO PAIN AND OR ELEVATED TEMP; Start 04/06/17 at 00:00 Morphine Sulfate (morphine) 4 mg Q4H PRN IV PAIN LEVEL 7-10 Last administered on 04/08/17 05:22; Admin Dose 4 MG; Start 04/06/17 at 00:00 Senna (Senokot) 2 tab BID PO Last administered on 04/09/17 09:31; Admin Dose 2 TAB; Start 04/06/17 at 09:00 Bisacodyl 5 mg 5 mg DAILY PRN PO CONSTIPATION; Start 04/06/17 at 00:00 Sodium Chloride (NS) 1,000 ml @ 75 mls/hr [id number] IV Last administered on 17:14; Admin Dose 75 MLS/HR; Start 04/06/17 at 00:00 Insulin Glargine (Lantus) 25 unit DAILY@20 SC Last administered on 04/08/17 21: 48; Admin Dose 25 UNIT; Start 04/06/17 at 20:00 Diagnostic Test (Pha) (Accu-Chek) 1 ea 02 XX ; Start 04/06/17 at 02:00 Ondansetron HCl (Zofran Inj) 4 mg Q6H PRN IV NAUSEA AND/OR VOMITING Last administered on 04/07/17 21:59; Admin Dose 4 MG; Start 04/06/17 at 00:00 Miscellaneous Information 1 ea NOTE XX ; Start 04/06/17 at 00:00 Glucose (Glutose) 15 gm Q15M PRN PO DECREASED GLUCOSE; Start 04/06/17 at 00:00 Glucose (Glutose) 22.5 gm Q15M PRN PO DECREASED GLUCOSE; Start 04/06/17 at 00:00 Dextrose (D50w Syringe) 25 ml Q15M PRN IV DECREASED GLUCOSE; Start 04/06/17 at 00:00 Dextrose (D50w Syringe) 50 ml Q15M PRN IV DECREASED GLUCOSE; Start 04/06/17 at 00:00 Glucagon (Glucagen) 1 mg Q15M PRN IM DECREASED GLUCOSE; Start 04/06/17 at 00:00 Glucose (Glutose) 15 gm Q15M PRN BUCCAL DECREASED GLUCOSE; Start 04/06/17 at 00: 00 Mineral Oil (Mineral Oil) 30 ml TID PO Last administered on 04/09/17 12:25; Admin Dose 30 ML; Start 04/06/17 at 21:00 Morphine Sulfate (Ms Contin (Er)) 15 mg BID PO Last administered on 04/09/17 09 :30; Admin Dose 15 MG; Start 04/08/17 at 11:30 Polyethylene Glycol (Miralax) 17 gm DAILY PO Last administered on 04/09/17 09: 30; Admin Dose 17 GM; Start 04/08/17 at 12:00 Insulin Glargine (Lantus) 30 unit DAILY@08 SC Last administered on 04/09/17 09: 36; Admin Dose 30 UNIT; Start 04/09/17 at 09:00 MC ARROYO MD Apr 09, 2017 17:25
[2017-04-09 19:37] VITALS: BP 113/63; RESP 18
[2017-04-09] MEDS: ATORVASTATIN 10 MG TAB PO SCH (20:27)
[2017-04-09] MEDS: GLUCOSE GEL 15 GRAM TUBE BUCCAL PRN ×2 (20:35→20:53)
[2017-04-09] MEDS ORDERED: INSULIN GLARGINE [LANtus] 3 ML PEN SC ONE (22:30)
[2017-04-10] MEDS: ACCU-CHEK XX SCH ×2 (02:00→21:58)
[2017-04-10] MEDS: INSULIN ASPART [NOVOLOG] 3 ML PEN SC SCH ×8 (07:35→21:00)
[2017-04-10] MEDS: INSULIN GLARGINE [LANtus] 3 ML PEN SC SCH ×2 (08:00→21:57)
[2017-04-10 08:30] VITALS: BP 116/70; RESP 16
[2017-04-10] MEDS: SOD CHLORIDE 0.9% 1,000 ML IV SCH (08:30)
[2017-04-10] MEDS: PANTOPRAZOLE (EC) 40 MG TAB PO SCH (08:31)
[2017-04-10] MEDS: morphine (ER) 15 MG TAB PO SCH ×2 (08:39→22:30)
[2017-04-10] MEDS: GABAPENTIN 100 MG CAP PO SCH ×3 (08:39→22:30)
[2017-04-10] MEDS: MINERAL OIL 30ML CUP PO SCH ×3 (08:42→22:30)
[2017-04-10] MEDS: POLYETHYLENE GLYCOL 17 GM PACKET PO SCH (08:42)
[2017-04-10] MEDS: SENNA TAB PO SCH ×2 (08:42→22:31)
[2017-04-10] MEDS: METOPROLOL (XL) 100 MG TAB PO SCH ×2 (08:43→08:45)
[2017-04-10] MEDS: LISINOPRIL 20 MG TAB PO SCH (08:46)
--- NOTE | 2017-04-10 11:31 | CONS ---
Date/Time of Note Date/Time of Note DATE: 04/10/17 TIME: 11:27 Assessment/Plan Assessment/Plan Chief Complaint/Hosp Course 66 yo with epigastric pain with CT demonstrating an amorphous mass arising from the posterior pancreatic body and encasing the superior mesenteric artery is estimated at 2.4 x 2.3 cm with associated pancreatic duct dilatation of 5 mm distal to the mass, findings correlating with the provided history. The mass is not amenable to CT guided biopsy per radiologist. -appreciate hepatobiliary recommendations. -pt to have EGD today to rule out gastric malignancy -pt will likely need and out patient EUS which Dr marte will coordinate -further recommendations will depend on biopsy results Problems: Consultation Date/Type/Reason Admit Date/Time Apr 05, 2017 at 21:32 Initial Consult Date 04/06/17 Type of Consultation: oncology Reason for Consultation pancreatic mass Referring Provider: KAYA KAUR MD 24 HR Interval Summary Free Text/Dictation pt was evaluated by hepatobiliary surgery and GI over the weekend. pt to have EGD to rule out gastric malignancy. pain controlled Exam/Review of Systems Vital Signs Vitals Vital Signs Date Time Temp Pulse Resp B/P Pulse Ox O2 Delivery O2 Flow Rate FiO2 04/10/17 08:30 98.3 85 16 116/70 98 Intake and Output 04/09/17 04/09/17 04/10/17 15:00 23:00 07:00 Intake Total 2050 ml 1320 ml Balance 2050 ml 1320 ml Exam Constitutional: alert, oriented Psych: anxiety Head: normocephalic Eyes: nl conjunctiva ENMT: nl external ears & nose Neck: non-tender, supple Respiratory: clear to auscultation, normal air movement Cardiovascular: regular rate and rhythm Gastrointestinal: soft Musculoskeletal: nl extremities to inspection, nl gait and stance Extremities: normal pulses Results Result Diagram: 04/07/17 0420 04/07/17 0420 Results 24 hrs Laboratory Tests Test 04/09/17 12:13 04/09/17 17:24 04/09/17 20:14 04/09/17 20:33 Bedside Glucose 179 109 57 L 50 L Test 04/09/17 20:51 04/09/17 21:05 04/09/17 21:23 04/09/17 22:31 Bedside Glucose 77 129 173 192 Test 04/10/17 05:45 04/10/17 06:12 04/10/17 06:26 04/10/17 08:50 Bedside Glucose 69 L 132 124 93 Medications Medications Current Medications Digoxin (Digoxin) 0.125 mg DAILY@13 PO Last administered on 04/09/17 12:30; Admin Dose 0.125 MG; Start 04/06/17 at 13:00 Gabapentin (Neurontin) 100 mg TID PO Last administered on 04/10/17 08:39; Admin Dose 100 MG; Start 04/06/17 at 09:00 Lisinopril (Zestril) 20 mg DAILY PO Last administered on 04/10/17 08:46; Admin Dose 20 MG; Start 04/06/17 at 09:00 Metoprolol Succinate (Toprol Xl) 100 mg DAILY PO Last administered on 08:45; Admin Dose 100 MG; Start 04/06/17 at 09:00 Atorvastatin Calcium (Lipitor) 10 mg DAILY@21 PO Last administered on 04/09/17 20:27; Admin Dose 10 MG; Start 04/06/17 at 21:00 Acetaminophen (Tylenol Tab) 500 mg Q4H PRN PO PAIN AND OR ELEVATED TEMP; Start 04/06/17 at 00:00 Morphine Sulfate (morphine) 4 mg Q4H PRN IV PAIN LEVEL 7-10 Last administered on 04/08/17 05:22; Admin Dose 4 MG; Start 04/06/17 at 00:00 Senna (Senokot) 2 tab BID PO Last administered on 04/09/17 20:27; Admin Dose 2 TAB; Start 04/06/17 at 09:00 Bisacodyl 5 mg 5 mg DAILY PRN PO CONSTIPATION; Start 04/06/17 at 00:00 Sodium Chloride (NS) 1,000 ml @ 75 mls/hr [id number] IV Last administered on 04/10 08:30; Admin Dose 75 MLS/HR; Start 04/06/17 at 00:00 Insulin Glargine (Lantus) 25 unit DAILY@20 SC Last administered on 04/08/17 21: 48; Admin Dose 25 UNIT; Start 04/06/17 at 20:00 Diagnostic Test (Pha) (Accu-Chek) 1 ea 02 XX ; Start 04/06/17 at 02:00 Ondansetron HCl (Zofran Inj) 4 mg Q6H PRN IV NAUSEA AND/OR VOMITING Last administered on 04/07/17 21:59; Admin Dose 4 MG; Start 04/06/17 at 00:00 Miscellaneous Information 1 ea NOTE XX ; Start 04/06/17 at 00:00 Glucose (Glutose) 15 gm Q15M PRN PO DECREASED GLUCOSE; Start 04/06/17 at 00:00 Glucose (Glutose) 22.5 gm Q15M PRN PO DECREASED GLUCOSE; Start 04/06/17 at 00:00 Dextrose (D50w Syringe) 25 ml Q15M PRN IV DECREASED GLUCOSE Last administered on 04/10/17 05:51; Admin Dose 25 ML; Start 04/06/17 at 00:00 Dextrose (D50w Syringe) 50 ml Q15M PRN IV DECREASED GLUCOSE; Start 04/06/17 at 00:00 Glucagon (Glucagen) 1 mg Q15M PRN IM DECREASED GLUCOSE; Start 04/06/17 at 00:00 Glucose (Glutose) 15 gm Q15M PRN BUCCAL DECREASED GLUCOSE Last administered on 04/09/17 20:53; Admin Dose 15 GM; Start 04/06/17 at 00:00 Mineral Oil (Mineral Oil) 30 ml TID PO Last administered on 04/09/17 20:27; Admin Dose 30 ML; Start 04/06/17 at 21:00 Morphine Sulfate (Ms Contin (Er)) 15 mg BID PO Last administered on 04/10/17 08:39; Admin Dose 15 MG; Start 04/08/17 at 11:30 Polyethylene Glycol (Miralax) 17 gm DAILY PO Last administered on 04/09/17 09: 30; Admin Dose 17 GM; Start 04/08/17 at 12:00 Insulin Glargine (Lantus) 30 unit DAILY@08 SC Last administered on 04/09/17 09: 36; Admin Dose 30 UNIT; Start 04/09/17 at 09:00; Status Future hold EDUARDO MURPHY M.D. Apr 10, 2017 11:30
[2017-04-10] MEDS ORDERED: REGADENOSON 0.4 MG/5 ML SYG ONE (11:50)
--- NOTE | 2017-04-10 12:15 | CONS ---
Date/Time of Note Date/Time of Note DATE: 04/10/17 TIME: 12:13 Assessment/Plan Assessment/Plan Chief Complaint/Hosp Course IMp: 1.AF-rate controlled/remains in by ECG today 2.abnl ecg-negatve trop/no cp 3.HTN 4.Pancreatic mass 5.DM 6. Cardiomyopathy-Decreased LVEF by echo this admit Recc: -Tele -serial ecg's -Continue statin -Continue zestril/toprol xl -Lexiscan today assess etiology of cardiomyopathy -Ongoing GI/Onc/surgical eval of pancreatic mass -pnding EGD Problems: Consultation Date/Type/Reason Admit Date/Time Apr 05, 2017 at 21:32 Initial Consult Date 04/06/17 Type of Consultation: cardiology Reason for Consultation AF/cardiomyopathy Referring Provider: KAYA KAUR MD Exam/Review of Systems Vital Signs Vitals Vital Signs Date Time Temp Pulse Resp B/P Pulse Ox O2 Delivery O2 Flow Rate FiO2 04/10/17 08:30 98.3 85 16 116/70 98 Intake and Output 04/09/17 04/09/17 04/10/17 15:00 23:00 07:00 Intake Total 2050 ml 1320 ml Balance 2050 ml 1320 ml Exam Review of Systems: CONSTITUTIONAL: No fevers, chills. PULMONARY: No sob CARDIOVASCULAR: No chest pain/palpitations GASTROINTESTINAL: Mild abd pain GENITOURINARY: No hematuria/dysuria. MUSCULOSKELETAL: No myagias/arthalgias. PSYCHIATRIC: The patient denies depression. NEUROLOGIC: No weakness Constitutional: alert Psych: no complaints Head: normocephalic ENMT: mucosa pink and moist Neck: jvd (8 cm water), supple Respiratory: clear to auscultation Cardiovascular: regular rate and rhythm Gastrointestinal: non-tender, soft Musculoskeletal: muscle tone (normal) Extremities: edema (none) Neurological: other (No focal deficits) Results Result Diagram: 04/07/17 04204/07/17 042 Results 24 hrs Laboratory Tests Test 04/09/17 17:24 04/09/17 20:14 04/09/17 20:33 04/09/17 20:51 Bedside Glucose 109 57 L 50 L 77 Test 04/09/17 21:05 04/09/17 21:23 04/09/17 22:31 04/10/17 05:45 Bedside Glucose 129 173 192 69 L Test 04/10/17 06:12 04/10/17 06:26 04/10/17 08:50 Bedside Glucose 132 124 93 Medications Medications Current Medications Digoxin (Digoxin) 0.125 mg DAILY@13 PO Last administered on 04/09/17 12:30; Admin Dose 0.125 MG; Start 04/06/17 at 13:00 Gabapentin (Neurontin) 100 mg TID PO Last administered on 04/10/17 08:39; Admin Dose 100 MG; Start 04/06/17 at 09:00 Lisinopril (Zestril) 20 mg DAILY PO Last administered on 04/10/17 08:46; Admin Dose 20 MG; Start 04/06/17 at 09:00 Metoprolol Succinate (Toprol Xl) 100 mg DAILY PO Last administered on 08:45; Admin Dose 100 MG; Start 04/06/17 at 09:00 Atorvastatin Calcium (Lipitor) 10 mg DAILY@21 PO Last administered on 04/09/17 20:27; Admin Dose 10 MG; Start 04/06/17 at 21:00 Acetaminophen (Tylenol Tab) 500 mg Q4H PRN PO PAIN AND OR ELEVATED TEMP; Start 04/06/17 at 00:00 Morphine Sulfate (morphine) 4 mg Q4H PRN IV PAIN LEVEL 7-10 Last administered on 04/08/17 05:22; Admin Dose 4 MG; Start 04/06/17 at 00:00 Senna (Senokot) 2 tab BID PO Last administered on 04/09/17 20:27; Admin Dose 2 TAB; Start 04/06/17 at 09:00 Bisacodyl 5 mg 5 mg DAILY PRN PO CONSTIPATION; Start 04/06/17 at 00:00 Sodium Chloride (NS) 1,000 ml @ 75 mls/hr [id number] IV Last administered on 04/10 08:30; Admin Dose 75 MLS/HR; Start 04/06/17 at 00:00 Insulin Glargine (Lantus) 25 unit DAILY@20 SC Last administered on 04/08/17 21: 48; Admin Dose 25 UNIT; Start 04/06/17 at 20:00 Diagnostic Test (Pha) (Accu-Chek) 1 ea 02 XX ; Start 04/06/17 at 02:00 Ondansetron HCl (Zofran Inj) 4 mg Q6H PRN IV NAUSEA AND/OR VOMITING Last administered on 04/07/17 21:59; Admin Dose 4 MG; Start 04/06/17 at 00:00 Miscellaneous Information 1 ea NOTE XX ; Start 04/06/17 at 00:00 Glucose (Glutose) 15 gm Q15M PRN PO DECREASED GLUCOSE; Start 04/06/17 at 00:00 Glucose (Glutose) 22.5 gm Q15M PRN PO DECREASED GLUCOSE; Start 04/06/17 at 00:00 Dextrose (D50w Syringe) 25 ml Q15M PRN IV DECREASED GLUCOSE Last administered on 04/10/17 05:51; Admin Dose 25 ML; Start 04/06/17 at 00:00 Dextrose (D50w Syringe) 50 ml Q15M PRN IV DECREASED GLUCOSE; Start 04/06/17 at 00:00 Glucagon (Glucagen) 1 mg Q15M PRN IM DECREASED GLUCOSE; Start 04/06/17 at 00:00 Glucose (Glutose) 15 gm Q15M PRN BUCCAL DECREASED GLUCOSE Last administered on 04/09/17 20:53; Admin Dose 15 GM; Start 04/06/17 at 00:00 Mineral Oil (Mineral Oil) 30 ml TID PO Last administered on 04/09/17 20:27; Admin Dose 30 ML; Start 04/06/17 at 21:00 Morphine Sulfate (Ms Contin (Er)) 15 mg BID PO Last administered on 04/10/17 08:39; Admin Dose 15 MG; Start 04/08/17 at 11:30 Polyethylene Glycol (Miralax) 17 gm DAILY PO Last administered on 04/09/17 09: 30; Admin Dose 17 GM; Start 04/08/17 at 12:00 Insulin Glargine (Lantus) 30 unit DAILY@08 SC Last administered on 04/09/17 09: 36; Admin Dose 30 UNIT; Start 04/09/17 at 09:00; Status Future hold SONA FRANK Apr 10, 2017 12:15
[2017-04-10] MEDS: DIGOXIN 0.125 MG TAB PO SCH (14:20)
[2017-04-10] MEDS: morphine 4 MG/ML VIAL IV PRN (14:21)
--- NOTE | 2017-04-10 14:30 | RADRPT ---
PROCEDURE: Nuclear medicine myocardial stress and rest scan. CLINICAL INDICATION: Chest pain. TECHNIQUE: The patient was stressed with 0.4 mg IV Lexiscan. 10.2 mCi technetium 99m Tetrofosmin (Myoview) was administered rest. 30.5 mCi technetium 99m Tetrofosmin (Myoview) was administered du ring stress. Images were obtained and reconstructed in the short axis, horizontal long axis, and ve rtical long axis. Gated images were obtained and ejection fraction was calculated. COMPARISON: No prior study is available for comparison. FINDINGS: The stress and rest images demonstrate a fixed defect in the inferior wall which may be an old infar ct or diaphragmatic attenuation. There is no other fixed or reversible abnormality. There is no ev idence of transient ischemic dilatation. Wall motion is diffusely hypokinetic. 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 There is diffusely decreased wall thickening during systole. The left ventricle is dilated. Ejection fraction at stress is 30%. IMPRESSION: 1. No evidence of stress induced myocardial ischemia. 2. 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 3. Dilated left ventricle. 4. Ejection fraction at stress is 30%. There is diffuse hypokinesis and probable akinesis of the i nferior wall. RPTAT: QQ .Simone Henson MD, Date Time Electronically viewed and signed by .Simone Henson MD, on 04/10/2017 14:29 .R/
[2017-04-10 14:35] LABS: ADD SCAN DIFF NO
[2017-04-10 14:37] LABS: BASOPHIL # 0.1 10^3/ul (0.0-0.1); BASOPHILS % 0.6 % (0.0-2.0); EOSINOPHILS # 0.3 10^3/ul (0.0-0.5); EOSINOPHILS % 3.7 % (0.0-7.0); HEMATOCRIT 38.3 % (42.0-52.0); HEMOGLOBIN 12.6 g/dl (14.0-18.0); LYMPHOCYTES # 1.3 10^3/ul (0.8-2.9); LYMPHOCYTES % 15.9 % (15.0-51.0); MEAN CORPUSCULAR HEMOGLOBIN 29.2 pg (29.0-33.0); MEAN CORPUSCULAR HGB CONC 32.9 g/dl (32.0-37.0); MEAN CORPUSCULAR VOLUME 88.9 fl (82.0-101.0); MEAN PLATELET VOLUME 10.4 fl (7.4-10.4); MONOCYTE # 0.6 10^3/ul (0.3-0.9); MONOCYTES % 6.7 % (0.0-11.0); NEUTROPHIL # 5.9 10^3/ul (1.6-7.5); NEUTROPHILS % 72.6 % (39.0-77.0); PLATELET COUNT 209 10^3/UL (140-415); RED BLOOD COUNT 4.31 10^6/ul (4.70-6.10); RED CELL DISTRIBUTION WIDTH 12.8 % (11.5-14.5); WHITE BLOOD COUNT 8.2 10^3/ul (4.8-10.8)
[2017-04-10 15:12] VITALS: BP 112/59; RESP 18
[2017-04-10 20:30] VITALS: PULSE 94; RESP 21
[2017-04-10] MEDS ORDERED: PROPOFOL 40 ML ONE (20:42)
--- NOTE | 2017-04-10 20:51 | PN ---
Date/Time of Note Date/Time of Note DATE: 04/10/17 TIME: 20:51 Assessment/Plan VTE Prophylaxis VTE Prophylaxis Intervention: other Lines/Catheters IV Catheter Type ([facility] Peripheral IV Urinary Cath still in place: No Assessment/Plan Chief Complaint/Hosp Course PANCREATIC MASS ELEVATED CA 19 WK LOSS HX AFIB PLAN PER SURGERY and oncology Problems: Subjective 24 Hr Interval Summary Respiratory: no complaints Cardiovascular: no complaints Exam/Review of Systems Vital Signs Vitals Vital Signs Date Time Temp Pulse Resp B/P Pulse Ox O2 Delivery O2 Flow Rate FiO2 04/10/17 15:12 98.0 96 18 112/59 96 Intake and Output 04/09/17 04/09/17 04/10/17 15:00 23:00 07:00 Intake Total 2050 ml 1320 ml Balance 2050 ml 1320 ml Exam Neck: supple Respiratory: clear to auscultation Cardiovascular: regular rate and rhythm Results Result Diagram: 04/10/17 1415 04/07/17 0420 Results 24 hrs Laboratory Tests Test 04/09/17 21:05 04/09/17 21:23 04/09/17 22:31 04/10/17 05:45 Bedside Glucose 129 173 192 69 L Test 04/10/17 06:12 04/10/17 06:26 04/10/17 08:50 04/10/17 14:15 Bedside Glucose 132 124 93 White Blood Count 8.2 Red Blood Count 4.31 L Hemoglobin 12.6 L Hematocrit 38.3 L Mean Corpuscular Volume 88.9 Mean Corpuscular Hemoglobin 29.2 Mean Corpuscular Hemoglobin Concent 32.9 Red Cell Distribution Width 12.8 Platelet Count 209 Mean Platelet Volume 10.4 Neutrophils % 72.6 Lymphocytes % 15.9 Monocytes % 6.7 Eosinophils % 3.7 Basophils % 0.6 Nucleated Red Blood Cells % 0.0 Neutrophils # 5.9 Lymphocytes # 1.3 Monocytes # 0.6 Eosinophils # 0.3 Basophils # 0.1 Nucleated Red Blood Cells # 0.0 Lactate Dehydrogenase 335 Test 04/10/17 14:36 04/10/17 17:01 04/10/17 19:01 Bedside Glucose 274 H 192 132 Medications Medications Current Medications Digoxin (Digoxin) 0.125 mg DAILY@13 PO Last administered on 04/10/17t 14:20; Admin Dose 0.125 MG; Start 04/06/17 at 13:00 Gabapentin (Neurontin) 100 mg TID PO Last administered on 04/10/17 08:39; Admin Dose 100 MG; Start 04/06/17 at 09:00 Lisinopril (Zestril) 20 mg DAILY PO Last administered on 04/10/17 08:46; Admin Dose 20 MG; Start 04/06/17 at 09:00 Metoprolol Succinate (Toprol Xl) 100 mg DAILY PO Last administered on 08:45; Admin Dose 100 MG; Start 04/06/17 at 09:00 Atorvastatin Calcium (Lipitor) 10 mg DAILY@21 PO Last administered on 04/09/17 20:27; Admin Dose 10 MG; Start 04/06/17 at 21:00 Acetaminophen (Tylenol Tab) 500 mg Q4H PRN PO PAIN AND OR ELEVATED TEMP; Start 04/06/17 at 00:00 Morphine Sulfate (morphine) 4 mg Q4H PRN IV PAIN LEVEL 7-10 Last administered on 04/10/17 14:21; Admin Dose 4 MG; Start 04/06/17 at 00:00 Senna (Senokot) 2 tab BID PO Last administered on 04/09/17 20:27; Admin Dose 2 TAB; Start 04/06/17 at 09:00 Bisacodyl 5 mg 5 mg DAILY PRN PO CONSTIPATION; Start 04/06/17 at 00:00 Sodium Chloride (NS) 1,000 ml @ 75 mls/hr [id number] IV Last administered on 04/10 08:30; Admin Dose 75 MLS/HR; Start 04/06/17 at 00:00 Insulin Glargine (Lantus) 25 unit DAILY@20 SC Last administered on 04/08/17 21: 48; Admin Dose 25 UNIT; Start 04/06/17 at 20:00 Diagnostic Test (Pha) (Accu-Chek) 1 ea 02 XX ; Start 04/06/17 at 02:00 Ondansetron HCl (Zofran Inj) 4 mg Q6H PRN IV NAUSEA AND/OR VOMITING Last administered on 04/07/17 21:59; Admin Dose 4 MG; Start 04/06/17 at 00:00 Miscellaneous Information 1 ea NOTE XX ; Start 04/06/17 at 00:00 Glucose (Glutose) 15 gm Q15M PRN PO DECREASED GLUCOSE; Start 04/06/17 at 00:00 Glucose (Glutose) 22.5 gm Q15M PRN PO DECREASED GLUCOSE; Start 04/06/17 at 00:00 Dextrose (D50w Syringe) 25 ml Q15M PRN IV DECREASED GLUCOSE Last administered on 04/10/17 05:51; Admin Dose 25 ML; Start 04/06/17 at 00:00 Dextrose (D50w Syringe) 50 ml Q15M PRN IV DECREASED GLUCOSE; Start 04/06/17 at 00:00 Glucagon (Glucagen) 1 mg Q15M PRN IM DECREASED GLUCOSE; Start 04/06/17 at 00:00 Glucose (Glutose) 15 gm Q15M PRN BUCCAL DECREASED GLUCOSE Last administered on 04/09/17 20:53; Admin Dose 15 GM; Start 04/06/17 at 00:00 Mineral Oil (Mineral Oil) 30 ml TID PO Last administered on 04/09/17 20:27; Admin Dose 30 ML; Start 04/06/17 at 21:00 Morphine Sulfate (Ms Contin (Er)) 15 mg BID PO Last administered on 04/10/17 08:39; Admin Dose 15 MG; Start 04/08/17 at 11:30 Polyethylene Glycol (Miralax) 17 gm DAILY PO Last administered on 04/09/17 09: 30; Admin Dose 17 GM; Start 04/08/17 at 12:00 Insulin Glargine (Lantus) 30 unit DAILY@08 SC Last administered on 04/09/17 09: 36; Admin Dose 30 UNIT; Start 04/09/17 at 09:00; Status Future hold JANE KING MD Apr 10, 2017 20:51
[2017-04-10 21:30] VITALS: BP 129/66; PULSE 91; RESP 12
[2017-04-10] MEDS: ATORVASTATIN 10 MG TAB PO SCH (22:30)
[2017-04-10 22:36] VITALS: BP 132/76; RESP 19
[2017-04-11 02:47] VITALS: BP 141/76; RESP 18
[2017-04-11] MEDS: SOD CHLORIDE 0.9% 1,000 ML IV SCH ×2 (05:16)
[2017-04-11] MEDS: morphine 4 MG/ML VIAL IV PRN (05:16)
[2017-04-11] MEDS: INSULIN ASPART [NOVOLOG] 3 ML PEN SC SCH ×6 (08:00→17:27)
[2017-04-11] MEDS: POLYETHYLENE GLYCOL 17 GM PACKET PO SCH (08:24)
[2017-04-11] MEDS: MINERAL OIL 30ML CUP PO SCH ×2 (08:25→12:53)
[2017-04-11] MEDS: INSULIN GLARGINE [LANtus] 3 ML PEN SC SCH (08:29)
[2017-04-11] MEDS: GABAPENTIN 100 MG CAP PO SCH ×2 (08:33→12:54)
[2017-04-11] MEDS: PANTOPRAZOLE (EC) 40 MG TAB PO SCH (08:33)
[2017-04-11] MEDS: SENNA TAB PO SCH (08:33)
[2017-04-11] MEDS: METOPROLOL (XL) 100 MG TAB PO SCH (08:34)
[2017-04-11] MEDS: LISINOPRIL 20 MG TAB PO SCH (08:34)
[2017-04-11] MEDS: morphine (ER) 15 MG TAB PO SCH (08:35)
[2017-04-11 08:55] VITALS: BP 130/57; RESP 16
--- NOTE | 2017-04-11 10:15 | CONS ---
Date/Time of Note Date/Time of Note DATE: 04/11/17 TIME: 10:13 Assessment/Plan Assessment/Plan Additional Assessment/Plan 1.AF-rate controlled/remains in by ECG today - off tele now, rate controlled 2.abnl ecg-negatve trop/no cp - stres test EF 30%, no rev ischemia - med rx now 3.HTN - well rx 4.Pancreatic mass - GI team follows 5.DM - on meds, keep euglycemic. 6. Cardiomyopathy-Decreased LVEF by echo this admit- will follow - outpt ICD eval. Consultation Date/Type/Reason Admit Date/Time Apr 05, 2017 at 21:32 Initial Consult Date 04/08/17 Type of Consultation: cardiology Referring Provider: KAYA KAUR MD 24 HR Interval Summary Free Text/Dictation NO acute events - feels better today - in good fluid status ROS: No fever, no chills, no nausea, no vomiting, no diarrhea/constipation No recent weight changes No chest pain, no PND, no orthopnea No dizziness, blurred vision No thirst, no heat or cold intolerance Exam/Review of Systems Vital Signs Vitals Vital Signs Date Time Temp Pulse Resp B/P Pulse Ox O2 Delivery O2 Flow Rate FiO2 04/11/17 08:55 98.4 62 16 130/57 94 04/10/17 21:30 Room Air 04/10/17 21:00 5 Intake and Output 04/10/17 04/10/17 04/11/17 15:00 23:00 07:00 Intake Total 100 ml 700 ml 880 ml Balance 100 ml 700 ml 880 ml Exam General: WN/WD/NAD, AOx 3 HEENT: Unicetric/atraumatic/EOMI (follow commands) NECK: JVD elevated, no thyromegaly Lymph: no lymphadenopathy HEART: regular with no S3, II/ systolic murmur at apex LUNGS: Coarse sounds ABD: soft, NT, ND, +BS : Intact Neuro: non focal SKIN: chronic changes EXT: trace edema Results Result Diagram: 04/10/17 1415 04/07/17 0420 Results 24 hrs Laboratory Tests Test 04/10/17 14:15 04/10/17 14:36 04/10/17 17:01 04/10/17 19:01 White Blood Count 8.2 Red Blood Count 4.31 L Hemoglobin 12.6 L Hematocrit 38.3 L Mean Corpuscular Volume 88.9 Mean Corpuscular Hemoglobin 29.2 Mean Corpuscular Hemoglobin Concent 32.9 Red Cell Distribution Width 12.8 Platelet Count 209 Mean Platelet Volume 10.4 Neutrophils % 72.6 Lymphocytes % 15.9 Monocytes % 6.7 Eosinophils % 3.7 Basophils % 0.6 Nucleated Red Blood Cells % 0.0 Neutrophils # 5.9 Lymphocytes # 1.3 Monocytes # 0.6 Eosinophils # 0.3 Basophils # 0.1 Nucleated Red Blood Cells # 0.0 Lactate Dehydrogenase 335 Bedside Glucose 274 H 192 132 Test 04/10/17 21:50 04/11/17 07:50 Bedside Glucose 107 128 Medications Medications Current Medications Digoxin (Digoxin) 0.125 mg DAILY@13 PO Last administered on 04/10/17 14:20; Admin Dose 0.125 MG; Start 04/06/17 at 13:00 Gabapentin (Neurontin) 100 mg TID PO Last administered on 04/11/17 08:33; Admin Dose 100 MG; Start 04/06/17 at 09:00 Lisinopril (Zestril) 20 mg DAILY PO Last administered on 04/11/17 08:34; Admin Dose 20 MG; Start 04/06/17 at 09:00 Metoprolol Succinate (Toprol Xl) 100 mg DAILY PO Last administered on 08:34; Admin Dose 100 MG; Start 04/06/17 at 09:00 Atorvastatin Calcium (Lipitor) 10 mg DAILY@21 PO Last administered on 22:30; Admin Dose 10 MG; Start 04/06/17 at 21:00 Acetaminophen (Tylenol Tab) 500 mg Q4H PRN PO PAIN AND OR ELEVATED TEMP; Start 04/06/17 at 00:00 Morphine Sulfate (morphine) 4 mg Q4H PRN IV PAIN LEVEL 7-10 Last administered on 04/11/17 05:16; Admin Dose 4 MG; Start 04/06/17 at 00:00 Senna (Senokot) 2 tab BID PO Last administered on 04/11/17 08:33; Admin Dose 2 TAB; Start 04/06/17 at 09:00 Bisacodyl 5 mg 5 mg DAILY PRN PO CONSTIPATION; Start 04/06/17 at 00:00 Sodium Chloride (NS) 1,000 ml @ 75 mls/hr [id number] IV Last administered on 04/11 05:16; Admin Dose 75 MLS/HR; Start 04/06/17 at 00:00 Insulin Glargine (Lantus) 25 unit DAILY@20 SC Last administered on 04/10/17 21 :57; Admin Dose 25 UNIT; Start 04/06/17 at 20:00 Diagnostic Test (Pha) (Accu-Chek) 1 ea 02 XX ; Start 04/06/17 at 02:00 Ondansetron HCl (Zofran Inj) 4 mg Q6H PRN IV NAUSEA AND/OR VOMITING Last administered on 04/07/17 21:59; Admin Dose 4 MG; Start 04/06/17 at 00:00 Miscellaneous Information 1 ea NOTE XX ; Start 04/06/17 at 00:00 Glucose (Glutose) 15 gm Q15M PRN PO DECREASED GLUCOSE; Start 04/06/17 at 00:00 Glucose (Glutose) 22.5 gm Q15M PRN PO DECREASED GLUCOSE; Start 04/06/17 at 00:00 Dextrose (D50w Syringe) 25 ml Q15M PRN IV DECREASED GLUCOSE Last administered on 04/10/17 05:51; Admin Dose 25 ML; Start 04/06/17 at 00:00 Dextrose (D50w Syringe) 50 ml Q15M PRN IV DECREASED GLUCOSE; Start 04/06/17 at 00:00 Glucagon (Glucagen) 1 mg Q15M PRN IM DECREASED GLUCOSE; Start 04/06/17 at 00:00 Glucose (Glutose) 15 gm Q15M PRN BUCCAL DECREASED GLUCOSE Last administered on 04/09/17 20:53; Admin Dose 15 GM; Start 04/06/17 at 00:00 Mineral Oil (Mineral Oil) 30 ml TID PO Last administered on 04/11/17 08:25; Admin Dose 30 ML; Start 04/06/17 at 21:00 Morphine Sulfate (Ms Contin (Er)) 15 mg BID PO Last administered on 04/11/17 08:35; Admin Dose 15 MG; Start 04/08/17 at 11:30 Polyethylene Glycol (Miralax) 17 gm DAILY PO Last administered on 04/11/17 08: 24; Admin Dose 17 GM; Start 04/08/17 at 12:00 Insulin Glargine (Lantus) 30 unit DAILY@08 SC Last administered on 04/11/17t 08 :29; Admin Dose 30 UNIT; Start 04/09/17 at 09:00; Status Future hold WILLA MAYO MD Apr 11, 2017 10:14
--- NOTE | 2017-04-11 12:07 | CONS ---
Date/Time of Note Date/Time of Note DATE: 04/11/17 TIME: 12:06 Assessment/Plan Assessment/Plan Additional Assessment/Plan Assessment/Plan Additional Assessment/Plan 1. 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 GERD and abdominal pain 3. Diabetes mellitus 4. Hypertension 5. Ischemic cardiomyopathy with ejection fraction of 30%. Patient will be evaluated by the media relations intern for possible AICD Plan We will do EGD to make sure there is no underlying stomach pathology Patient will be scheduled for EUS as outpatient. I discussed with Dr. Lydia Muniz and also with the hepatobiliary surgeon. EGD showed gastritis awaiting for the biopsy report. Patient can be discharged and follow-up as an outpatient will make arrangement for EUS with FNA Consultation Date/Type/Reason Admit Date/Time Apr 05, 2017 at 21:32 Initial Consult Date 04/08/17 Type of Consultation: cardiology Referring Provider: KAYA KAUR MD 24 HR Interval Summary Constitutional: improved, no complaints Exam/Review of Systems Vital Signs Vitals Vital Signs Date Time Temp Pulse Resp B/P Pulse Ox O2 Delivery O2 Flow Rate FiO2 04/11/17 08:55 98.4 62 16 130/57 94 04/10/17 21:30 Room Air 04/10/17 21:00 5 Intake and Output 04/10/17 04/10/17 04/11/17 15:00 23:00 07:00 Intake Total 100 ml 700 ml 880 ml Balance 100 ml 700 ml 880 ml Exam Constitutional: alert, oriented, well developed Psych: nl mood/affect, no complaints Head: atraumatic, normocephalic Eyes: EOMI, PERRL, nl conjunctiva, nl lids, nl sclera ENMT: nl external ears & nose, nl lips & teeth, nl nasal mucosa & septum Neck: non-tender, supple Respiratory: clear to auscultation, normal air movement Cardiovascular: nl pulses, regular rate and rhythm Gastrointestinal: nl liver, spleen, non-tender, soft Musculoskeletal: nl extremities to inspection, nl gait and stance Extremities: normal pulses Neurological: STEEP TENDER II-XII intact, nl mental status, nl speech, nl strength Skin: nl turgor, No rash or lesions Lymph: nl lymph nodes Results Result Diagram: 04/10/17 1415 04/07/17 0420 Results 24 hrs Laboratory Tests Test 04/10/17 14:15 04/10/17 14:36 04/10/17 17:01 04/10/17 19:01 White Blood Count 8.2 Red Blood Count 4.31 L Hemoglobin 12.6 L Hematocrit 38.3 L Mean Corpuscular Volume 88.9 Mean Corpuscular Hemoglobin 29.2 Mean Corpuscular Hemoglobin Concent 32.9 Red Cell Distribution Width 12.8 Platelet Count 209 Mean Platelet Volume 10.4 Neutrophils % 72.6 Lymphocytes % 15.9 Monocytes % 6.7 Eosinophils % 3.7 Basophils % 0.6 Nucleated Red Blood Cells % 0.0 Neutrophils # 5.9 Lymphocytes # 1.3 Monocytes # 0.6 Eosinophils # 0.3 Basophils # 0.1 Nucleated Red Blood Cells # 0.0 Lactate Dehydrogenase 335 Bedside Glucose 274 H 192 132 Test 04/10/17 21:50 04/11/17 07:50 Bedside Glucose 107 128 Medications Medications Current Medications Digoxin (Digoxin) 0.125 mg DAILY@13 PO Last administered on 04/10/17 14:20; Admin Dose 0.125 MG; Start 04/06/17 at 13:00 Gabapentin (Neurontin) 100 mg TID PO Last administered on 04/11/17 08:33; Admin Dose 100 MG; Start 04/06/17 at 09:00 Lisinopril (Zestril) 20 mg DAILY PO Last administered on 04/11/17 08:34; Admin Dose 20 MG; Start 04/06/17 at 09:00 Metoprolol Succinate (Toprol Xl) 100 mg DAILY PO Last administered on 08:34; Admin Dose 100 MG; Start 04/06/17 at 09:00 Atorvastatin Calcium (Lipitor) 10 mg DAILY@21 PO Last administered on 22:30; Admin Dose 10 MG; Start 04/06/17 at 21:00 Acetaminophen (Tylenol Tab) 500 mg Q4H PRN PO PAIN AND OR ELEVATED TEMP; Start 04/06/17 at 00:00 Morphine Sulfate (morphine) 4 mg Q4H PRN IV PAIN LEVEL 7-10 Last administered on 04/11/17 05:16; Admin Dose 4 MG; Start 04/06/17 at 00:00 Senna (Senokot) 2 tab BID PO Last administered on 04/11/17 08:33; Admin Dose 2 TAB; Start 04/06/17 at 09:00 Bisacodyl 5 mg 5 mg DAILY PRN PO CONSTIPATION; Start 04/06/17 at 00:00 Sodium Chloride (NS) 1,000 ml @ 75 mls/hr [id number] IV Last administered on 04/11 05:16; Admin Dose 75 MLS/HR; Start 04/06/17 at 00:00 Insulin Glargine (Lantus) 25 unit DAILY@20 SC Last administered on 04/10/17 21 :57; Admin Dose 25 UNIT; Start 04/06/17 at 20:00 Diagnostic Test (Pha) (Accu-Chek) 1 ea 02 XX ; Start 04/06/17 at 02:00 Ondansetron HCl (Zofran Inj) 4 mg Q6H PRN IV NAUSEA AND/OR VOMITING Last administered on 04/07/17 21:59; Admin Dose 4 MG; Start 04/06/17 at 00:00 Miscellaneous Information 1 ea NOTE XX ; Start 04/06/17 at 00:00 Glucose (Glutose) 15 gm Q15M PRN PO DECREASED GLUCOSE; Start 04/06/17 at 00:00 Glucose (Glutose) 22.5 gm Q15M PRN PO DECREASED GLUCOSE; Start 04/06/17 at 00:00 Dextrose (D50w Syringe) 25 ml Q15M PRN IV DECREASED GLUCOSE Last administered on 04/10/17 05:51; Admin Dose 25 ML; Start 04/06/17 at 00:00 Dextrose (D50w Syringe) 50 ml Q15M PRN IV DECREASED GLUCOSE; Start 04/06/17 at 00:00 Glucagon (Glucagen) 1 mg Q15M PRN IM DECREASED GLUCOSE; Start 04/06/17 at 00:00 Glucose (Glutose) 15 gm Q15M PRN BUCCAL DECREASED GLUCOSE Last administered on 04/09/17 20:53; Admin Dose 15 GM; Start 04/06/17 at 00:00 Mineral Oil (Mineral Oil) 30 ml TID PO Last administered on 04/11/17 08:25; Admin Dose 30 ML; Start 04/06/17 at 21:00 Morphine Sulfate (Ms Contin (Er)) 15 mg BID PO Last administered on 04/11/17 08:35; Admin Dose 15 MG; Start 04/08/17 at 11:30 Polyethylene Glycol (Miralax) 17 gm DAILY PO Last administered on 04/11/17 08: 24; Admin Dose 17 GM; Start 04/08/17 at 12:00 Insulin Glargine (Lantus) 30 unit DAILY@08 SC Last administered on 04/11/17 08 :29; Admin Dose 30 UNIT; Start 04/09/17 at 09:00; Status Future hold MC ARROYO MD Apr 11, 2017 12:07
[2017-04-11 12:52] VITALS: BP 127/70; PULSE 65
[2017-04-11] MEDS: DIGOXIN 0.125 MG TAB PO SCH (12:54)
--- NOTE | 2017-04-11 14:01 | CONS ---
Date/Time of Note Date/Time of Note DATE: 04/11/17 TIME: 13:59 Assessment/Plan Assessment/Plan Chief Complaint/Hosp Course 66 yo with epigastric pain with CT demonstrating an amorphous mass arising from the posterior pancreatic body and encasing the superior mesenteric artery is estimated at 2.4 x 2.3 cm with associated pancreatic duct dilatation of 5 mm distal to the mass, findings correlating with the provided history. The mass is not amenable to CT guided biopsy per radiologist. -pt will need out patient EUS as an out patient -appreciate hepatobiliary recommendations. -further recommendations will depend on biopsy results -ok to discharge from oncology standpoint approximately 40 min were spent at patient's bedside and in coordination of his care Problems: Consultation Date/Type/Reason Admit Date/Time Apr 05, 2017 at 21:32 Initial Consult Date 04/06/17 Type of Consultation: Hematology Reason for Consultation pancreatic mass Referring Provider: KAYA KAUR MD 24 HR Interval Summary Free Text/Dictation pt had EGD that demonstrated gastritis Exam/Review of Systems Vital Signs Vitals Vital Signs Date Time Temp Pulse Resp B/P Pulse Ox O2 Delivery O2 Flow Rate FiO2 04/11/17 12:52 65 127/70 04/11/17 08:55 98.4 16 94 04/10/17 21:30 Room Air 04/10/17 21:00 5 Intake and Output 04/10/17 04/10/17 04/11/17 15:00 23:00 07:00 Intake Total 100 ml 700 ml 880 ml Balance 100 ml 700 ml 880 ml Exam Constitutional: alert, oriented Psych: no complaints Head: normocephalic Eyes: nl conjunctiva ENMT: nl external ears & nose, nl lips & teeth Neck: non-tender, supple Respiratory: clear to auscultation, normal air movement Cardiovascular: nl pulses, regular rate and rhythm Gastrointestinal: soft Musculoskeletal: nl extremities to inspection, nl gait and stance Results Result Diagram: 04/10/17 1415 04/07/17 0420 Results 24 hrs Laboratory Tests Test 04/10/17 14:15 04/10/17 14:36 04/10/17 17:01 04/10/17 19:01 White Blood Count 8.2 Red Blood Count 4.31 L Hemoglobin 12.6 L Hematocrit 38.3 L Mean Corpuscular Volume 88.9 Mean Corpuscular Hemoglobin 29.2 Mean Corpuscular Hemoglobin Concent 32.9 Red Cell Distribution Width 12.8 Platelet Count 209 Mean Platelet Volume 10.4 Neutrophils % 72.6 Lymphocytes % 15.9 Monocytes % 6.7 Eosinophils % 3.7 Basophils % 0.6 Nucleated Red Blood Cells % 0.0 Neutrophils # 5.9 Lymphocytes # 1.3 Monocytes # 0.6 Eosinophils # 0.3 Basophils # 0.1 Nucleated Red Blood Cells # 0.0 Lactate Dehydrogenase 335 Bedside Glucose 274 H 192 132 Test 04/10/17 21:50 04/11/17 07:50 04/11/17 12:06 Bedside Glucose 107 128 90 Medications Medications Current Medications Digoxin (Digoxin) 0.125 mg DAILY@13 PO Last administered on 04/11/17 12:54; Admin Dose 0.125 MG; Start 04/06/17 at 13:00 Gabapentin (Neurontin) 100 mg TID PO Last administered on 04/11/17 12:54; Admin Dose 100 MG; Start 04/06/17 at 09:00 Lisinopril (Zestril) 20 mg DAILY PO Last administered on 04/11/17 08:34; Admin Dose 20 MG; Start 04/06/17 at 09:00 Metoprolol Succinate (Toprol Xl) 100 mg DAILY PO Last administered on 08:34; Admin Dose 100 MG; Start 04/06/17 at 09:00 Atorvastatin Calcium (Lipitor) 10 mg DAILY@21 PO Last administered on 22:30; Admin Dose 10 MG; Start 04/06/17 at 21:00 Acetaminophen (Tylenol Tab) 500 mg Q4H PRN PO PAIN AND OR ELEVATED TEMP; Start 04/06/17 at 00:00 Morphine Sulfate (morphine) 4 mg Q4H PRN IV PAIN LEVEL 7-10 Last administered on 04/11/17 05:16; Admin Dose 4 MG; Start 04/06/17 at 00:00 Senna (Senokot) 2 tab BID PO Last administered on 04/11/17 08:33; Admin Dose 2 TAB; Start 04/06/17 at 09:00 Bisacodyl 5 mg 5 mg DAILY PRN PO CONSTIPATION; Start 04/06/17 at 00:00 Sodium Chloride (NS) 1,000 ml @ 75 mls/hr [id number] IV Last administered on 04/11 05:16; Admin Dose 75 MLS/HR; Start 04/06/17 at 00:00 Insulin Glargine (Lantus) 25 unit DAILY@20 SC Last administered on 04/10/17 21 :57; Admin Dose 25 UNIT; Start 04/06/17 at 20:00 Diagnostic Test (Pha) (Accu-Chek) 1 ea 02 XX ; Start 04/06/17 at 02:00 Ondansetron HCl (Zofran Inj) 4 mg Q6H PRN IV NAUSEA AND/OR VOMITING Last administered on 04/07/17 21:59; Admin Dose 4 MG; Start 04/06/17 at 00:00 Miscellaneous Information 1 ea NOTE XX ; Start 04/06/17 at 00:00 Glucose (Glutose) 15 gm Q15M PRN PO DECREASED GLUCOSE; Start 04/06/17 at 00:00 Glucose (Glutose) 22.5 gm Q15M PRN PO DECREASED GLUCOSE; Start 04/06/17 at 00:00 Dextrose (D50w Syringe) 25 ml Q15M PRN IV DECREASED GLUCOSE Last administered on 04/10/17 05:51; Admin Dose 25 ML; Start 04/06/17 at 00:00 Dextrose (D50w Syringe) 50 ml Q15M PRN IV DECREASED GLUCOSE; Start 04/06/17 at 00:00 Glucagon (Glucagen) 1 mg Q15M PRN IM DECREASED GLUCOSE; Start 04/06/17 at 00:00 Glucose (Glutose) 15 gm Q15M PRN BUCCAL DECREASED GLUCOSE Last administered on 04/09/17 20:53; Admin Dose 15 GM; Start 04/06/17 at 00:00 Mineral Oil (Mineral Oil) 30 ml TID PO Last administered on 04/11/17 12:53; Admin Dose 30 ML; Start 04/06/17 at 21:00 Morphine Sulfate (Ms Contin (Er)) 15 mg BID PO Last administered on 04/11/17 08:35; Admin Dose 15 MG; Start 04/08/17 at 11:30 Polyethylene Glycol (Miralax) 17 gm DAILY PO Last administered on 04/11/17 08: 24; Admin Dose 17 GM; Start 04/08/17 at 12:00 Insulin Glargine (Lantus) 30 unit DAILY@08 SC Last administered on 04/11/17t 08 :29; Admin Dose 30 UNIT; Start 04/09/17 at 09:00; Status Future hold EDUARDO MURPHY M.D. Apr 11, 2017 14:01
[2017-04-11 15:13] VITALS: BP_SYST 127; BP_SYST 130; BP_DIAS 57; BP_DIAS 67; RESP 16
--- NOTE | 2017-04-11 18:26 | PDOCDIS ---
Discharge Instructions CONDITION Patient Condition: Stable HOME CARE INSTRUCTIONS: Special Diet: 1800 arsh diet ACTIVITY: Activity Restrictions: Slowly Increase Activity FOLLOW UP/APPOINTMENTS Follow-up Plan see pcp [address] chavez [address] maradiaga [address] marte 1 wk AJNE KING MD Apr 11, 2017 18:26
[2017-04-11 19:36] VITALS: BP 115/72; RESP 17
[2017-04-11 19:45] VITALS: PULSE 60
--- NOTE | 2017-04-13 12:58 | HP ---
HISTORY AND PHYSICAL DATE OF ADMISSION: 04/05/2017 HISTORY OF PRESENT ILLNESS: Gustavo Mccray is a 66-year-old male with history of atrial fibrillation, history of hypertension, history of diabetes mellitus and dyslipidemia, presented with abdominal pain for the last couple of weeks and poor p.o. intake, was seen in [facility] office and was sent here for further management. The patient, in the ER, was noted to have a sodium of 129, potassium 4.9, BUN 19, creatinine 0.05. CT of abdomen and pelvis pancreatic mass. Dr. Victoria is also seeing this patient in consultation. PAST MEDICAL HISTORY: Atrial fibrillation, hypertension, diabetes mellitus, CAD, history of coronary angiogram. ALLERGIES: PER PATIENT, ALLERGY HISTORY IS NEGATIVE. FAMILY HISTORY: Hypertension. SOCIAL HISTORY: Negative. MEDICATIONS: Listed as Eliquis, digoxin, gabapentin, hydrocodone, insulin, lisinopril, metoprolol, Protonix, simvastatin. REVIEW OF SYSTEMS: HEENT: Unremarkable. RESPIRATORY: Unremarkable. CARDIOVASCULAR: Unremarkable except as mentioned above. GASTROINTESTINAL: On and off abdominal pain. EXTREMITIES: Unremarkable. NEUROLOGIC: Unremarkable. PHYSICAL EXAMINATION: GENERAL: The patient is awake and alert. VITAL SIGNS: Pulse 76, blood pressure 121/70. HEENT: Head is atraumatic, normocephalic. Pupils equal and reactive to light. NECK: Supple. There is no JVD. LUNGS: Clear. CARDIAC: S1, S2 is normal. ABDOMEN: Soft, nontender. Bowel sounds present. . EXTREMITIES: No cyanosis, clubbing or edema. NEUROLOGIC: The patient is awake and alert, no focal deficits. LABORATORY DATA: As mentioned above. Hematocrit 38.9. Sodium 136. CA 19-9 56.3. Hemoglobin A1c 8.5. IMPRESSION: The patient's CT of the abdomen done, shows patient has amorphous mass arising from the posterior pancreatic body and casting the superior mesenteric artery. No evidence of adenopathy, constipation, moderate to severe atherosclerotic calcification, disease of the right lower lobe, calcification. IMPRESSION: 1. Pancreatic mass, rule out malignancy. 2. Hypertension. 3. Diabetes mellitus. 4. History of coronary artery disease. 5. Atrial fibrillation. 6. Atherosclerotic heart disease. PLAN: Continue current treatment, IV fluids. The patient is currently on Lipitor, Lantus, digoxin gabapentin, lisinopril, metoprolol, senna. The patient is also on Lantus, Protonix, Tylenol and morphine sulfate. The patient is on Zofran. Plan is to obtain cardiology consultation and oncology consultation. Follow recommendations from Dr. Victoria. Dictated By: Jonah Watson MD /fnt/ec /Document#: [id number] Conf#:[id number] DID#: [id number]
--- NOTE | 2017-04-16 08:30 | CONS ---
DATE OF ADMISSION: 04/05/2017 DATE OF CONSULTATION: 04/07/2017 HISTORY OF PRESENT ILLNESS: The patient is a 66-year-old male who came to the ER on 04/05 complaining of abdominal pain of 1- month duration. He is also known to have diabetes mellitus, hypertension and atrial fibrillation. He is on Eliquis. Patient had a CAT scan done in the emergency room and there was a mass identified in the body of the pancreas, around 2.5 cm encasing superior mesenteric artery. GI consult was called in for a pancreatic mass. Patient denies any nausea, vomiting. He is comfortable. He has no weight loss. No chest pain. No shortness of breath. PAST MEDICAL HISTORY: As described, diabetes mellitus, hypertension, in atrial fibrillation. MEDICATION: Reviewed. He is on gabapentin, pantoprazole, insulin, [place], simvastatin, Lisinopril, Toprol, digoxin and Eliquis. ALLERGIES: NONE. SOCIAL HISTORY: Does not smoke or drink. PHYSICAL EXAMINATION: GENERAL: Alert, awake, not in distress. VITAL SIGNS: Stable. HEENT: Unremarkable. NECK: Supple. No thyromegaly. No lymphadenopathy. CARDIAC: No murmur, gallop. LUNGS: Clear. ABDOMEN: Benign. EXTREMITIES: No edema. NEUROLOGIC: Grossly within normal limits. LABORATORY: Both liver function and are normal. IMPRESSION: 1. Mass in the body of the pancreas encasing the superior mesenteric artery. 2. Diabetes mellitus. 3. Hypertension. 4. Atrial fibrillation. 5. Abdominal pain. PLAN: 1. Vascular surgical consult to find out whether it is possible to operate upon this lesion, since it involves the superior mesenteric artery. 2. If the lesion is not operable, then the best option is to have a tissue diagnosis, US with FNA. 3. Pain management. 4. Optimization of his blood sugar. I have discussed at length, both with the patient and the , and also with the daughter. Awaiting vascular surgical consult and surgical follow- up. Dictated By: Jean Claude Holland MD /victor manuel/katia /Document#: [id number] CC: Jean Claude Holland MD;*End[facility]*
--- NOTE | 2017-04-17 11:30 | GILP ---
DATE OF PROCEDURE: 04/10/2017 PROCEDURE PERFORMED: Esophagogastroduodenoscopy with biopsy. INDICATION: This 66-year-old male is undergoing this procedure for heartburn and epigastric discomfort. The purpose is to evaluate the upper GI tract and rule out upper GI pathology. The risks of the procedure, related and unrelated complications, anesthetic risks were discussed. Informed consent was obtained. DESCRIPTION OF PROCEDURE: The patient was brought to the GI lab, sedated by Dr. Carroll. After optimum sedation, the scope was passed with much ease into the esophagus which was grossly within normal limits. Z-line was at 40 cm. The stomach mucosa revealed mild gastritis. Two biopsies obtained to rule out H. pylori infection. The duodenum, first, and second part were within normal limits. The ampulla appeared normal. On viewing the scope, there was a good flow of bile. Retroversion in the stomach also was normal. The scope was straightened out and removed with good patient tolerance. IMPRESSION: 1. Normal esophagus. 2. Z-line at 40 cm, regular. 3. Gastritis. 4. Normal duodenum. PLAN: Review histopathology. The patient will have US as an outpatient. Dictated By: Jean Claude Holland MD /victor manuel/misael /Document#: [id number] CC: Jonah Watson MD;*[facility]*
--- NOTE | 2017-04-17 13:24 | CONS ---
CONSULTATION DATE OF ADMISSION: 04/05/2017 DATE OF CONSULTATION: 04/07/2017 REASON FOR CONSULTATION: Atrial fibrillation, hypertension. REQUESTING PHYSICIAN: Jonah Watson MD HISTORY OF PRESENT ILLNESS: The patient is a 66-year-old male with a history of atrial fibrillation on Eliquis, hypertension, diabetes mellitus, dyslipidemia, who had been undergoing evaluation for epigastric pain. He underwent a CT scan that demonstrated a mass arising from the posterior pancreatic body and encasing the superior mesenteric artery, associated pancreatic duct dilatation. The patient had been sent additionally to Surgery for consideration of a possible Whipple due to the pancreatic mass but due to worsening pain was sent to the emergency department. Upon arrival, temperature 98.1, blood pressure 127/75, pulse 85, respiratory rate 20, sating 99%. White count 9.3, hemoglobin , platelet count 253. Sodium of 129, calcium 4.9, creatinine 0.95, BUN 19. Lipase 19. CA 19-9 of 64.4, CEA antigen of 2.9. INR 0.94. UA negative. The patient underwent abdominal and pelvic CT revealing as above, mass arising from the posterior pancreatic body and encasing the superior mesenteric artery, estimated at 2.4 x 2.3 cm with associated pancreatic duct dilatation. Moderate to severe atherosclerotic calcifications of the aortic, iliac systems. The patient's echocardiogram with atrial fibrillation, 91, right bundle branch block pattern with secondary repolarization abnormalities. The patient subsequently has been admitted to the floor. Denies chest pain, shortness of breath, but does have ongoing abdominal pain. PAST MEDICAL HISTORY: As above in HPI. MEDICATIONS: Currently in the hospital. 1. Lipitor 10 mg at bedtime. 2. Mineral oil 30 mg p.o. t.i.d. 3. Lantus 25 units subcutaneous daily. 4. Digoxin 0.125 mg daily. 5. Neurontin 100 mg t.i.d. 6. Zestril 20 mg daily. 7. Toprol XL 100 mg daily. 8. Senna. 9. Insulin sliding scale. 10. Tylenol p.r.n. 11. Morphine p.r.n. 12. 75 mL/hour. ALLERGIES: No known drug allergies. SOCIAL HISTORY: No tobacco, ETOH or drug use. FAMILY HISTORY: No history of sudden cardiac or early CD. REVIEW OF SYSTEMS: CONSTITUTIONAL: No fever or chills. PULMONARY: No current shortness of breath. CARDIOVASCULAR: Atrial fibrillation. GASTROINTESTINAL: Abdominal pain, pancreatic mass. GENITOURINARY: No hematuria, dysuria. MUSCULOSKELETAL: Degenerative joint disease. PSYCH: The patient denies depression. NEUROLOGIC: No documented history of CVA. PHYSICAL EXAMINATION: GENERAL: The patient is alert, awake, complaining of mild epigastric abdominal pain. VITAL SIGNS: Temperature 98.1, blood pressure most recently 117/71, pulse 74, respiratory rate 16, sating 97%. NECK: No jugular venous distention. CHEST: Fair air movement. Mildly decreased breath sounds at bases bilaterally. HEART: Irregular rhythm. 1/6 systolic murmur. Nondisplaced PMI. ABDOMEN: Positive bowel sounds. Soft. EXTREMITIES: No pitting edema. 1+ pulses bilaterally, posterior tibialis. LABORATORY DATA: As in HPI. Most recently from today white cell count of 9.5, hemoglobin 13, platelet count of 222. Sodium 139, calcium 4.7, creatinine 0.88, BUN 12, AST 16, ALT 25. INR 0.94. UA negative. IMAGING STUDIES: As in HPI. The imaging studies from [facility] . No further images available at this time. IMPRESSION: 1. Atrial fibrillation, currently rate controlled. 2. Abnormal echocardiogram, right bundle branch block and secondary abnormalities, assess for acute coronary syndrome. 3. Hypertension. Well controlled. 4. History of dyslipidemia. 5. Pancreatic mass. 6. Elevated CA 19-9 level. 7. Abdominal pain. 8. Diabetes mellitus. 9. Anemia, mild. RECOMMENDATIONS: 1. At this time would maintain patient on Toprol XL for rate control and Zestril fro control of blood pressure. As well, continue the patient's digoxin for rate control. Will continue the patient's current statin and adjust according to fasting lipid panel. 2. Will check a 2D echo for assessment of the patient's ejection fraction, wall motion and left atrial size and to assess possible need for surgery. Will send troponins every 6 hours x3 to assure the patient's EKG are chronic in nature and not due to any recent coronary syndrome. Will continue to check serial EKGs, repeat EKG in the morning. for any complaints of chest pain or change in rhythm. Will check a TSH to assure hypothyroidism is not contributing to any bouts of tachyarrhythmia. 3. Ongoing Oncological and Surgical evaluation of pancreatic mass. Thank you for allowing me to take part in the care of this patient. I will continue to follow him very closely with you through the inpatient hospital course. Dictated By: Sunitha Prasad /fnt/ /Document#: [id number] Conf#:[id number] DID#: [id number] CC: Jonah Watson MD
--- NOTE | 2017-04-17 23:47 | QN ---
Documentation Comment [id number] JANE KING MD Apr 17, 2017 23:47
--- NOTE | 2017-04-18 04:58 | PN ---
DATE: 04/08/2017 SUBJECTIVE DATA: This patient apparently was admitted because of the couple of months of continuous abdominal pain and CT scan shows presence of a massive posterior fossa of the pancreas. The patient was admitted for pain control and also for further evaluation as to the nature of this focality mass. There was an order for a CT guided biopsy but apparently one of the colleagues ordered to cancel the biopsy and they were planning to do endocopic ultrasound and through that to get the biopsy so we are waiting for the procedure to be done. Meanwhile, per Dr. Benedict's advice, has seen the patient and evaluated the patient. OBJECTIVE DATA: VITAL SIGNS: Temperature 97.9, heart rate 72, respirations 18, blood pressure 128/78, saturation 97% on room air. LABORATORY AND DIAGNOSTIC DATA: WBC 9,500 with 65% segmented. Hemoglobin 15, hematocrit 39, platelets . Chemistry: Sodium, potassium within normal limits. BUN, creatinine within normal limits. Important findings revealed CA 19-9 antigen has been positive 2 occasions, 64.4 and 56.3. ASSESSMENT AND PLAN: [id number]-old gentleman presented with abdominal pain, concern for tumors with constipation as well and a few pounds of weight loss. On CT scan there is presence of some pancreatic mass in the pancreas. Plan is to get a biopsy somehow, either percutaneous CT guided biopsy or endoscopically, ultrasound performance and biopsy from the tissues so that we make a tissue diagnosis and further plan will be decided after getting a biopsy. Meanwhile the patient is getting preparation. Dictated By: Nuno Lemus MD /victor manuel/jennifer /Document#: [id number]
== END 2017-04-11 19:49 | disposition home or self-care (01) | DRG 436 ==
LOC: E/R 16:49 → PP2 21:32
PROVIDERS: ADMIT Internal Medicine Nephrology; ATTEND Internal Medicine
PROC: 0DB68ZX Excision of Stomach, Via Natural or Artificial Opening Endoscopic, Diagnostic (ICD-10-PCS; 2017-04-10)
PROC: 0DB98ZX Excision of Duodenum, Via Natural or Artificial Opening Endoscopic, Diagnostic (ICD-10-PCS; principal; 2017-04-10 19:30)
DX: C25.7 Malignant neoplasm of other parts of pancreas (principal); E87.1 Hypo-osmolality and hyponatremia; I48.91 Unspecified atrial fibrillation; E11.65 Type 2 diabetes mellitus with hyperglycemia; K86.89 Other specified diseases of pancreas; K29.70 Gastritis, unspecified, without bleeding; Z79.02 Long term (current) use of antithrombotics/antiplatelets; I45.10 Unspecified right bundle-branch block; E78.5 Hyperlipidemia, unspecified; I25.10 Atherosclerotic heart disease of native coronary artery without angina pectoris; R63.4 Abnormal weight loss; Z68.30 Body mass index [BMI] 30.0-30.9, adult; E66.9 Obesity, unspecified; K59.00 Constipation, unspecified; Z95.5 Presence of coronary angioplasty implant and graft; Z79.4 Long term (current) use of insulin; I25.5 Ischemic cardiomyopathy; I12.9 Hypertensive chronic kidney disease with stage 1 through stage 4 chronic kidney disease, or unspecified chronic kidney disease; N18.9 Chronic kidney disease, unspecified
CPT/HCPCS: 36415; 74177; 78452; 80048; 80053; 80061; 81003; 82378; 82962; 83036; 83605; 83615; 83690; 84443; 85025; 85610; 85730; 86301; 88305; 88312; 93005; 93017; 93306; 96374; 96375; A9500; A9505; J1815; J2270; J2405; J2785; J7030; Q9967

== ENCOUNTER 2017-05-18 06:49 | Day surgery (SDC) | payer OTHER ==
[~2017-05-18] VITALS: Ht 167.6 cm; Wt 80.0 kg
[~2017-05-18 06:49] MED LIST: APIX2.5T PO; DIGO125T PO; GABA100C14 PO; HYDR-902 PO; INSU300I SQ; LISI20TA11 PO; METO100T13 PO; NOVO3I SC; PANT40TA4 PO; SIMV20TA PO
[2017-05-18] MEDS ORDERED: INSU300I SQ ×2 (08:50→08:51)
[2017-05-18] MEDS ORDERED: APIX2.5T PO (08:52)
[2017-05-18 09:02] VITALS: Ht 167.6 cm; Wt 80.0 kg
[2017-05-18 09:05] VITALS: BP 129/94; PULSE 91; RESP 18
[2017-05-18 09:19] LABS: BASOPHILS % 0.5 % (0.0-2.0); EOSINOPHILS # 0.1 10^3/ul (0.0-0.5); EOSINOPHILS % 1.6 % (0.0-7.0); HEMOGLOBIN 13.5 g/dl (14.0-18.0); LYMPHOCYTES # 1.6 10^3/ul (0.8-2.9); LYMPHOCYTES % 19.6 % (15.0-51.0); MEAN CORPUSCULAR HEMOGLOBIN 30.2 pg (29.0-33.0); MEAN CORPUSCULAR HGB CONC 34.6 g/dl (32.0-37.0); MEAN CORPUSCULAR VOLUME 87.2 fl (82.0-101.0); MEAN PLATELET VOLUME 10.6 fl (7.4-10.4); MONOCYTE # 0.7 10^3/ul (0.3-0.9); MONOCYTES % 8.3 % (0.0-11.0); NEUTROPHILS % 69.6 % (39.0-77.0); PLATELET COUNT 255 10^3/UL (140-415); RED BLOOD COUNT 4.47 10^6/ul (4.70-6.10); RED CELL DISTRIBUTION WIDTH 12.8 % (11.5-14.5); WHITE BLOOD COUNT 8.1 10^3/ul (4.8-10.8)
[2017-05-18] MEDS ORDERED: AMPICILLIN/SULB 3 GM/NS (PMX) 100 ML IVPB SCH (09:30)
[2017-05-18] MEDS ORDERED: SOD CHLORIDE 0.9% 1,000 ML IV SCH (09:30)
[2017-05-18 09:34] LABS: ALBUMIN 4.4 g/dl (3.3-4.9); ALBUMIN/GLOBULIN RATIO 1.41; BILIRUBIN,INDIRECT 0.4 mg/dl (0-1.1); BILIRUBIN,TOTAL 0.4 mg/dl (0.2-1.3); TOTAL PROTEIN 7.5 g/dl (6.1-8.1)
[2017-05-18 09:41] LABS: CALCIUM 9.7 mg/dl (8.4-10.2); CREATININE 0.81 mg/dl (0.61-1.24); POTASSIUM 4.9 mmol/L (3.5-5.1)
[2017-05-18 09:48] LABS: INR 0.99; PROTIME 13.1 Sec (12.2-14.2)
[2017-05-18] MEDS ORDERED: ROCURONIUM 50 MG INJ ONE (10:09)
[2017-05-18] MEDS ORDERED: ETOMIDATE 20 MG INJ ONE (10:09)
[2017-05-18] MEDS ORDERED: FENTAnyl 50 MCG/ML VIAL ONE (10:09)
[2017-05-18] MEDS ORDERED: ONDANSETRON 4 MG INJ ONE (10:09)
[2017-05-18] MEDS ORDERED: ACETAMINOPHEN 1000MG/100ML IV 0 ML ONE (10:09)
[2017-05-18] MEDS ORDERED: DEXAMETHASONE 4 MG/ML 1 ML INJ ONE (10:10)
[2017-05-18] MEDS ORDERED: MIDAZOLAM 1 MG/ML 2 ML INJ ONE (10:11)
[2017-05-18] MEDS ORDERED: LABETALOL HCL 20MG INJ ONE (10:15)
[2017-05-18 10:54] VITALS: BP 137/71; PULSE 95; RESP 20
--- NOTE | 2017-05-18 10:58 | RADRPT ---
PROCEDURE: XR Chest. CLINICAL INDICATION: explore lap TECHNIQUE: Single frontal view of the chest was obtained. COMPARISON: None. FINDINGS: There is moderate cardiomegaly and mild pulmonary vascular congestion. The aortic arch is calcified. The lungs are clear. There is no significant pleural effusion or pneumothorax. IMPRESSION: Moderate cardiomegaly and mild pulmonary vascular congestion. No definite focal infiltrates or effusions. Aortic atherosclerosis. RPTAT: EE Darrion Evans Physician Date Time Electronically viewed and signed by Darrion Evans Physician on 05/18/2017 08:41 /
--- NOTE | 2017-05-18 11:30 | OPR ---
Date/Time of Note Date/Time of Note DATE: 05/18/17 TIME: 11:25 Operative Report Preoperative Diagnosis 1.WILLIAM 2.Abnl MPI Postoperative Diagnosis 1.Non-obstructive cad Operation/Procedure Performed 1.Left heart catheterization 2.LV gram Anesthesia Type: moderate sedation Estimated Blood Loss: none Grafts/Implants: none Complications: no SONA FRANK May 18, 2017 11:30
--- NOTE | 2017-05-19 13:48 | RADRPT ---
Vent Rate: 100 bpm RR Interval: 0 msec [place] Interval: 0 msec QRS Duration: 146 msec QT Interval: 326 msec QTC Interval: 420 msec P-R-T [place]: 0 - 27 - -27 degrees Atrial fibrillation Right bundle branch block T wave abnormality, consider inferior ischemia or digitalis effect Abnormal ECG Electronically Signed By: Kit Up [id number]
== END 2017-05-18 11:45 | disposition home or self-care (01) ==
LOC: SDS 06:49
PROVIDERS: ATTEND Surgery Surgical Oncology
DX: K86.89 Other specified diseases of pancreas (principal); R93.1 Abnormal findings on diagnostic imaging of heart and coronary circulation; Z53.9 Procedure and treatment not carried out, unspecified reason
CPT/HCPCS: 71010; 80053; 82962; 85025; 85610; 85730; 93005; J0295; J2250; J0131; J1100; J2405; J3010

== ENCOUNTER 2017-05-26 09:34 | Observation (INO) | payer OTHER ==
[2017-05-26] VITALS (14 sets, daily range): BP systolic 132–159; BP diastolic 73–106; PULSE 76–120; RESP 13–20; Ht 167.6 cm; Wt 79.0 kg
[~2017-05-26] VITALS: Ht 167.6 cm; Wt 79.0 kg
[~2017-05-26 09:34] MED LIST changes: +DIPHENHYDRAMINE 50 MG INJ IV PRN; +EPHEDrine SULFATE 50 MG/5 ML SYG IV PRN; +FENTAnyl 50 MCG/ML VIAL IV PRN; +INSULIN ASPART [NOVOLOG] 3 ML PEN SC ONE; +LABETALOL HCL 20MG INJ IV PRN; +MEPERIDINE 25 MG INJ IV PRN; +ONDANSETRON 4 MG INJ IV PRN; +OXYCODONE/ACETAMINOPHEN (5/325) TAB PO PRN; +PROCHLORPERAZINE 10 MG INJ IV PRN; +hydrALAzine 20 MG INJ IV PRN
[2017-05-26] MEDS ORDERED: APIX2.5T PO (10:48)
[2017-05-26] MEDS ORDERED: IOHEXOL 300MG/ML 30 ML BTL ONE (11:38)
[2017-05-26] MEDS ORDERED: SUCCINYLCHOLINE CHLORIDE 100 MG/5 ML SYG IV ONE (11:47)
[2017-05-26] MEDS ORDERED: LIDOCAINE 2% (SDV) 5 ML INJ ONE (11:47)
[2017-05-26] MEDS ORDERED: MIDAZOLAM 1 MG/ML 2 ML INJ ONE (11:47)
[2017-05-26] MEDS ORDERED: PROPOFOL 20 ML ONE (11:47)
[2017-05-26] MEDS ORDERED: FENTAnyl 50 MCG/ML VIAL ONE (11:47)
[2017-05-26] MEDS ORDERED: PHENYLephrine (100 MCG/ML) 5ML SYG ONE (11:49)
[2017-05-26] MEDS ORDERED: CEFAZOLIN 1 GM/NS 50 ML X 1 IVPB ONE (12:00)
[2017-05-26] MEDS ORDERED: INDOMETHACIN 50 MG SUPP PR ONE ×3 (12:00)
[2017-05-26] MEDS ORDERED: GENTAMICIN 80 MG/NS (PMX) 50 ML IVPB ONE (12:00)
[2017-05-26] MEDS ORDERED: METOPROLOL 5 MG INJ ONE (12:20)
[2017-05-26] MEDS ORDERED: ONDANSETRON 4 MG INJ ONE (12:34)
[2017-05-26] MEDS ORDERED: METOCLOPRAMIDE 10 MG INJ ONE (12:34)
[2017-05-26] MEDS ORDERED: ESMOLOL 10 ML ONE (12:50)
[2017-05-26] MEDS ORDERED: HYDROmorphONE (0.2 MG/ML) 10ML SYG IV PRN (13:00)
--- NOTE | 2017-05-26 13:16 | OPPN ---
Date/Time of Note Date/Time of Note DATE: 05/26/17 TIME: 13:12 Operative Report Free Text/Dictation PANCREATIC MASS Preoperative Diagnosis PANCREATIC MASS WITH OBSTRUCTION OF P.DUCT Postoperative Diagnosis PANCREATIC DUCT STRICTURE BODY OF PANCREAS Operation/Procedure Performed ERP CYTOLOGY,P.STENT PLACEMENT 10CMS 7FR Provider: ERNESTINE REDDY MD Anesthesia Type: general Estimated blood loss: minimal Transfusion Required: no Specimens CYTOLOGY PANCREATIC DUCT Grafts/Implants: none Complications: no (ADMIT PT HAS PAIN AND ATRIAL FIB) ERNESITNE REDDY MD May 26, 2017 13:16
--- NOTE | 2017-05-26 14:21 | HP ---
Date/Time of Note Date/Time of Note DATE: 05/26/17 TIME: 14:13 Assessment/Plan VTE Prophylaxis VTE Prophylaxis Intervention: SCD's Lines/Catheters IV [facility] [place] Assessment/Plan Chief Complaint/Hosp Course 1. 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 2. Hypertension, controlled. 3. Diabetes mellitus, status is unknown. 4. History of coronary artery disease. 5. Atrial fibrillation, RVR. 6. Atherosclerotic heart disease. 7. Overweight Problems: Assessment/Plan 1. Admit to telemetry 2. dr Adams for cardiology consult 3. B blockers to control RVR prn 4. restart anticoagulation HPI/ROS Admit Date/Time Admit Date/Time Hx of Present Illness pt was in PACU after ERCP procedure, when he is having irregular rhythm and uncontrolled up to 120 per min RVR. Pt denied feeling chest pain or palpitations , denied pain. Reported that he was took his usual medications a night prior surgery ROS Constitutional: no complaints Eyes: no complaints Cardiovascular: chest pain, No edema, No lightheadedness, No no complaints, No orthopenea, No other, No palpitations, No paroxysmal nocturnal dyspnea Gastrointestinal: no complaints Genitourinary: no complaints Musculoskeletal: back pain, bone/joint pain, no complaints, No neck pain, No other, No restricted range of motion, No swelling Skin: no complaints Endocrine: no complaints, polydypsia, No dry skin, No other, No polyuria, No temp intolerance, No weight change Psychological: anxiety, no complaints, No confusion, No depression, No nl mood/affect, No other, No suicidal PMH/Family/Social Past Medical History Medical History: high cholesterol, hypertension, other (pancreatic mass) Past Surgical History Past Surgical Hx: no surgical history, other Social History Alcohol Use: none Smoking Status: Never smoker Drug Use: none Exam/Review of Systems Vital Signs Vitals Vital Signs Date Time Temp Pulse Resp B/P Pulse Ox O2 Delivery O2 Flow Rate FiO2 05/26/17 13:37 88 19 144/85 98 Nasal Cannula 05/26/17 13:20 8.0 05/26/17 13:18 98.1 Exam Constitutional: alert, oriented, well developed Eyes: nl conjunctiva ENMT: nl external ears & nose Neck: supple Cardiovascular: edema (lower extremities), irregular rhythm Genitourinary - Male: nl scrotum Musculoskeletal: nl extremities to inspection Medications Medications Current Medications Hydromorphone HCl (Dilaudid) 1 mg Q4H PRN IV PAIN; Start 05/26/17 at 13:30 PEG ROBBINS May 26, 2017 14:21
[2017-05-26] MEDS ORDERED: GLUCOSE GEL 15 GRAM TUBE BUCCAL PRN (15:00)
[2017-05-26] MEDS ORDERED: GLUCAGON 1 MG INJ IM PRN (15:00)
[2017-05-26] MEDS ORDERED: DEXTROSE 50% 50 ML SYRINGE IV PRN ×2 (15:00)
[2017-05-26] MEDS ORDERED: GLUCOSE GEL 15 GRAM TUBE PO PRN ×2 (15:00)
--- NOTE | 2017-05-26 16:04 | RADRPT ---
PROCEDURE: Intraoperative imaging for ERCP with fluoroscopy. CLINICAL INDICATION: Right upper quadrant pain. Intraoperative. TECHNIQUE: 5 images of the right upper quadrant of the abdomen were obtained in the operating room with an image intensifier. No radiologist was in attendance. 3.0 minutes of fluoroscopy time was used. COMPARISON: No prior study is available for comparison. FINDINGS: Images demonstrate placement of a stent in the pancreatic duct. The common bile duct was not inject ed. IMPRESSION: 1. ERCP as described above. RPTAT: QQ .Simone Henson MD, MD Date Time Electronically viewed and signed by .Simone Henson MD, MD on 05/26/2017 16:04 .R/
[2017-05-26] MEDS: HYDROmorphONE 1 MG/ML SYG IV PRN ×2 (16:16→20:37)
[2017-05-26] MEDS: METOPROLOL (XL) 100 MG TAB PO SCH (16:16)
[2017-05-26] MEDS: LISINOPRIL 20 MG TAB PO SCH (16:16)
--- NOTE | 2017-05-26 17:12 | RADRPT ---
Vent Rate: 109 bpm RR Interval: 0 msec [place] Interval: 0 msec QRS Duration: 138 msec QT Interval: 366 msec QTC Interval: 492 msec P-R-T [place]: 0 - 31 - -49 degrees Atrial fibrillation with rapid ventricular response Right bundle branch block T wave abnormality, consider inferior ischemia or digitalis effect Abnormal ECG Electronically Signed By: Lane Macias [id number]
[2017-05-26] MEDS: INSULIN ASPART [NOVOLOG] 3 ML PEN SC SCH (17:55)
[2017-05-26] MEDS: DIGOXIN 0.125 MG TAB PO SCH (17:55)
[2017-05-26] MEDS ORDERED: [UNRECOGNIZED DRUG - OTHER] XX SCH (21:00)
[2017-05-26] MEDS ORDERED: INSULIN GLARGINE HUM REC ANLOG 40 UNIT XX SCH (21:00)
[2017-05-27] VITALS (12 sets, daily range): BP systolic 114–161; BP diastolic 59–86; PULSE 93–152; RESP 16–20
[2017-05-27] MEDS: HYDROmorphONE 1 MG/ML SYG IV PRN ×5 (00:49→22:49)
[2017-05-27] MEDS: HYDROCODONE/APAP (10/325) TAB PO PRN ×4 (03:20→21:52)
--- NOTE | 2017-05-27 04:25 | GILP ---
DATE OF PROCEDURE: 05/26/2017 PREOPERATIVE DIAGNOSIS: Pancreatic mass, suspected carcinoma (CA). POSTOP DIAGNOSIS: Pancreatic ductal stricture in the body. PROCEDURES PERFORMED: The patient underwent ERCP, sphincterotomy, cytology, brush cytology of pancreatic duct, and placement of pancreatic stent, 10 cm long 7 [place], and fluoroscopy. ANESTHESIA: General anesthesia by Dr. Ross. DESCRIPTION OF PROCEDURE: After obtaining informed consent, patient underwent general anesthesia. Endotracheal general anesthesia, placed in a prone position on the fluoroscopy table in the operating room, monitored by the anesthesiologist. Very carefully, I advanced a Olympus video therapeutic ERCP scope into the second part of the duodenum and normal looking ampulla was noted. This was cannulated with the papillotome. Small amount of dye injected into the pancreatic duct. The pancreatic duct in the mid body is strictured with narrowing and the tail very small amount of dye entered. A guidewire was placed all the way to the tail of the pancreas. Then the papillotome was withdrawn back into the ampulla and a 4 mm sphincterotomy done and dye started to flow out and the papillotome was withdrawn. A cytology brush was advanced all the way to the mid body of the pancreas and cytology brushing done and sent to histopathology. Then the cytology brush was taken out and sent this to pathology. A 7-[place] 10 cm pancreatic stent was advanced all the way to the level of the stricture. I did entered it was pushed a little further, but could not push it all the way to the tail. Then deployed and clear fluid was flowing at the conclusion. Then this guidewire was removed. Scope was withdrawn after deflating the stomach. Dear Dr. Benedict, this patient has large pancreatic mass with pancreatic ductal stricture. I have done the cytology, I wait for biopsy report. If this is negative, will do another repeat biopsy, but at present because of the pain the patient had even before the procedure, the patient will be kept in the hospital for a day for observation. The patient also has atrial fibrillation, which is uncontrolled and a Cardiology opinion will be requested to control the atrial fibrillation. Meanwhile I have spoken with the family about possibility of unresectability of this lesion, but we may have to request Oncology's opinion for radiation chemo neoadjuvant therapy and then decide about surgical approach. Thank you, once again, for having confidence in me to see this patient. Dictated By: Kanwal Palmer MD /victor manuel/volodymyr /Document#: [id number] CC: Jignesh Benedict MD; Dr Simone Egan;*[facility]*
[2017-05-27] MEDS: PANTOPRAZOLE (EC) 40 MG TAB PO SCH (07:35)
[2017-05-27] MEDS: LISINOPRIL 20 MG TAB PO SCH (07:35)
[2017-05-27] MEDS: METOPROLOL (XL) 100 MG TAB PO SCH (07:36)
[2017-05-27] MEDS ORDERED: INSULIN GLARGINE HUM REC ANLOG 45 UNIT XX SCH (09:00)
[2017-05-27] MEDS ORDERED: [UNRECOGNIZED DRUG - OTHER] XX SCH (09:00)
[2017-05-27] MEDS: INSULIN ASPART [NOVOLOG] 3 ML PEN SC SCH ×3 (12:46→21:00)
[2017-05-27] MEDS: DIGOXIN 0.125 MG TAB PO SCH (12:47)
[2017-05-27] MEDS ORDERED: DILTIAZEM 25 MG INJ IV PRN (13:00)
--- NOTE | 2017-05-27 13:11 | CONS ---
Date/Time of Note Date/Time of Note DATE: 05/27/17 TIME: 13:09 Consult Date/Type/Reason Admit Date/Time May 26, 2017 at 13:20 Initial Consult Date Type of Consultation: CARDIOLOGY Reason for Consultation AFIB. Subjective CARDIOLOGY CONSULTATION (covering for Dr Mejia) Thank you for this referral. This is a pleasant 66-year-old gentleman with history of severe cardiomyopathy and atrial fibrillation who underwent ERCP procedure yesterday. Patient was noted to be in atrial fibrillation rapid ventricular response postop and has been admitted. We are kindly asked to evaluate and treat. Patient is apparently normally be followed up as an outpatient by Dr. Mejia. At this point his heart is better controlled now. He is tolerating food. Has mild abdominal discomfort but he wants to go home. His old record was reviewed discussed with Dr. Siomara Carrasco. There is no known drug allergy. Past medical history history of severe cardiomyopathy ejection pressure 30-35%. History of atrial fibrillation chronic hypertension diabetes. History of pancreatic mass workup is being done and is being evaluated by [facility] as well as GI. medication was reviewed. His Eliquis was held 2 days prior to the procedure. Family history no reported coronary artery disease. ROS: As above mentioned. Objective Vital Signs Date Time Temp Pulse Resp B/P Pulse Ox O2 Delivery O2 Flow Rate FiO2 05/27/17 12:06 93 05/27/17 11:00 98.2 18 137/81 95 05/27/17 04:00 Room Air 05/26/17 13:20 8.0 Intake and Output 05/26/17 05/26/17 05/27/17 15:00 23:00 07:00 Intake Total 300 ml Balance 300 ml Exam General: no acute distress HEENT: NC/AT. pupils are equal. round. NECK: NO JVD. no stridor. CV: Irregularly irregular. systolic murmur; no gallop or rubs. PULM: no wheezing or rhonchi. GI: SOFT, NT, ND, no rebound or guarding Extremity: trace B/L LE edema. no clubbing. neuro: awake and alert, OX3. Psych: calm and pleasant rectal: deferred : normal ECHO EF 30-35% Results/Medications Results 24 hrs Laboratory Tests Test 05/26/17 17:06 05/27/17 11:44 Bedside Glucose 124 234 H Medications Current Medications Hydromorphone HCl (Dilaudid) 1 mg Q4H PRN IV PAIN Last administered on 00:49; Admin Dose 1 MG; Start 05/26/17 at 13:30 Digoxin (Digoxin) 0.125 mg DAILY@13 PO Last administered on 05/27/17 12:47; Admin Dose 0.125 MG; Start 05/26/17 at 14:34 Acetaminophen/ Hydrocodone Bitart ([place] (10)) 1 tab Q6H PRN PO SEVERE PAIN LEVEL 7-10 Last administered on 05/27/17 10:13; Admin Dose 1 TAB; Start at 14:30 Lisinopril (Zestril) 20 mg QAM PO Last administered on 05/27/17 07:35; Admin Dose 20 MG; Start 05/26/17 at 14:30 Metoprolol Succinate (Toprol Xl) 50 mg DAILY PO Last administered on 05/27/17 07:36; Admin Dose 50 MG; Start 05/26/17 at 14:30 Miscellaneous Information 40 unit QPM XX ; Start 05/26/17 at 21:00; Status UNV Miscellaneous Information 45 unit QAM SQ ; Start 05/27/17 at 09:00; Status UNV Miscellaneous Information 1 ea NOTE XX ; Start 05/26/17 at 15:00 Glucose (Glutose) 15 gm Q15M PRN PO DECREASED GLUCOSE; Start 05/26/17 at 15:00 Glucose (Glutose) 22.5 gm Q15M PRN PO DECREASED GLUCOSE; Start 05/26/17 at 15: 00 Dextrose (D50w Syringe) 25 ml Q15M PRN IV DECREASED GLUCOSE; Start 05/26/17 at 15:00 Dextrose (D50w Syringe) 50 ml Q15M PRN IV DECREASED GLUCOSE; Start 05/26/17 at 15:00 Glucagon (Glucagen) 1 mg Q15M PRN IM DECREASED GLUCOSE; Start 05/26/17 at 15:00 Glucose (Glutose) 15 gm Q15M PRN BUCCAL DECREASED GLUCOSE; Start 05/26/17 at 15 :00 Diltiazem HCl (Cardizem Iv) 10 mg Q6 PRN IV IV PROTOCOL; Start 05/27/17 at 13: 00; Status UNV Assessment/Plan Chief Complaint/Hosp Course 1. AFIB: currently HR is better 2. cardiomyopathy 3. pancreatic mass 4. HTN 5. DM cont home cardiac meds. resume eliquis once ok with GI. CONT DIG and metoprolol outpt follow up with DR Roberto dooley planning once ok with IM THANK YOU; RENUKA ARSHAD Problems: RENUKA ARSHAD MD May 27, 2017 13:11
[2017-05-27 15:21] LABS: BASOPHILS % 0.4 % (0.0-2.0); EOSINOPHILS # 0.1 10^3/ul (0.0-0.5); EOSINOPHILS % 1.5 % (0.0-7.0); HEMATOCRIT 36.6 % (42.0-52.0); HEMOGLOBIN 12.4 g/dl (14.0-18.0); LYMPHOCYTES # 1.6 10^3/ul (0.8-2.9); LYMPHOCYTES % 21.8 % (15.0-51.0); MEAN CORPUSCULAR HEMOGLOBIN 30.4 pg (29.0-33.0); MEAN CORPUSCULAR HGB CONC 33.9 g/dl (32.0-37.0); MEAN CORPUSCULAR VOLUME 89.7 fl (82.0-101.0); MEAN PLATELET VOLUME 10.5 fl (7.4-10.4); MONOCYTE # 0.6 10^3/ul (0.3-0.9); MONOCYTES % 8.3 % (0.0-11.0); NEUTROPHILS % 67.7 % (39.0-77.0); PLATELET COUNT 223 10^3/UL (140-415); RED BLOOD COUNT 4.08 10^6/ul (4.70-6.10); RED CELL DISTRIBUTION WIDTH 13.1 % (11.5-14.5); WHITE BLOOD COUNT 7.5 10^3/ul (4.8-10.8)
--- NOTE | 2017-05-27 15:59 | PN ---
Date/Time of Note Date/Time of Note DATE: 05/27/17 TIME: 15:59 Assessment/Plan VTE Prophylaxis VTE Prophylaxis Intervention: other Lines/Catheters IV Catheter Type (from [facility]): Peripheral IV Urinary Cath still in place: No Assessment/Plan Chief Complaint/Hosp Course Chief Complaint/Hosp Course 1. 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 2. Hypertension, controlled. 3. Diabetes mellitus, status is unknown. 4. History of coronary artery disease. 5. Atrial fibrillation, RVR. 6. Atherosclerotic heart disease. 7. Overweight plan ck labs Problems: Subjective 24 Hr Interval Summary Respiratory: no complaints Cardiovascular: no complaints Exam/Review of Systems Vital Signs Vitals Vital Signs Date Time Temp Pulse Resp B/P Pulse Ox O2 Delivery O2 Flow Rate FiO2 05/27/17 15:55 98.4 83 16 115/59 95 05/27/17 04:00 Room Air 05/26/17 13:20 8.0 Intake and Output 05/26/17 05/26/17 05/27/17 15:00 23:00 07:00 Intake Total 300 ml Balance 300 ml Exam Respiratory: clear to auscultation Cardiovascular: regular rate and rhythm Gastrointestinal: soft Musculoskeletal: nl extremities to inspection Results Result Diagram: 05/27/17 1455 Results 24 hrs Laboratory Tests Test 05/26/17 17:06 05/27/17 07:40 05/27/17 11:44 05/27/17 14:55 Bedside Glucose 124 231 H 234 H White Blood Count 7.5 Red Blood Count 4.08 L Hemoglobin 12.4 L Hematocrit 36.6 L Mean Corpuscular Volume 89.7 Mean Corpuscular Hemoglobin 30.4 Mean Corpuscular Hemoglobin Concent 33.9 Red Cell Distribution Width 13.1 Platelet Count 223 Mean Platelet Volume 10.5 H Neutrophils % 67.7 Lymphocytes % 21.8 Monocytes % 8.3 Eosinophils % 1.5 Basophils % 0.4 Nucleated Red Blood Cells % 0.0 Neutrophils # (Manual) 5.1 Lymphocytes # 1.6 Monocytes # 0.6 Eosinophils # 0.1 Basophils # 0.0 Nucleated Red Blood Cells # 0.0 Medications Medications Current Medications Hydromorphone HCl (Dilaudid) 1 mg Q4H PRN IV PAIN Last administered on t 13:57; Admin Dose 1 MG; Start 05/26/17 at 13:30 Digoxin (Digoxin) 0.125 mg DAILY@13 PO Last administered on 05/27/17 12:47; Admin Dose 0.125 MG; Start 05/26/17 at 14:34 Acetaminophen/ Hydrocodone Bitart ([place] (10325)) 1 tab Q6H PRN PO SEVERE PAIN LEVEL 7-10 Last administered on 05/27/17 15:51; Admin Dose 1 TAB; Start at 14:30 Lisinopril (Zestril) 20 mg QAM PO Last administered on 05/27/17 07:35; Admin Dose 20 MG; Start 05/26/17 at 14:30 Metoprolol Succinate (Toprol Xl) 50 mg DAILY PO Last administered on 05/27/17 07:36; Admin Dose 50 MG; Start 05/26/17 at 14:30 Miscellaneous Information 40 unit QPM XX ; Start 05/26/17 at 21:00; Status UNV Miscellaneous Information 45 unit QAM SQ ; Start 05/27/17 at 09:00; Status UNV Miscellaneous Information 1 ea NOTE XX ; Start 05/26/17 at 15:00 Glucose (Glutose) 15 gm Q15M PRN PO DECREASED GLUCOSE; Start 05/26/17 at 15:00 Glucose (Glutose) 22.5 gm Q15M PRN PO DECREASED GLUCOSE; Start 05/26/17 at 15: 00 Dextrose (D50w Syringe) 25 ml Q15M PRN IV DECREASED GLUCOSE; Start 05/26/17 at 15:00 Dextrose (D50w Syringe) 50 ml Q15M PRN IV DECREASED GLUCOSE; Start 05/26/17 at 15:00 Glucagon (Glucagen) 1 mg Q15M PRN IM DECREASED GLUCOSE; Start 05/26/17 at 15:00 Glucose (Glutose) 15 gm Q15M PRN BUCCAL DECREASED GLUCOSE; Start 05/26/17 at 15 :00 Diltiazem HCl (Cardizem Iv) 10 mg Q6 PRN IV IV PROTOCOL; Start 05/27/17 at 13: 00 JANE KING MD May 27, 2017 15:59
[2017-05-28] VITALS (9 sets, daily range): BP systolic 113–122; BP diastolic 64–78; PULSE 68–119; RESP 16–21
[2017-05-28] MEDS ORDERED: ACCU-CHEK XX SCH ×2 (02:00)
[2017-05-28] MEDS: HYDROmorphONE 1 MG/ML SYG IV PRN ×2 (04:36→10:33)
[2017-05-28] MEDS: HYDROCODONE/APAP (10/325) TAB PO PRN ×2 (07:59→14:09)
[2017-05-28] MEDS: METOPROLOL (XL) 100 MG TAB PO SCH (08:04)
[2017-05-28] MEDS: LISINOPRIL 20 MG TAB PO SCH (08:04)
[2017-05-28] MEDS: PANTOPRAZOLE (EC) 40 MG TAB PO SCH (08:04)
[2017-05-28] MEDS: INSULIN ASPART [NOVOLOG] 3 ML PEN SC SCH ×2 (08:09→12:32)
[2017-05-28 09:17] LABS: ALBUMIN 3.9 g/dl (3.3-4.9); ALBUMIN/GLOBULIN RATIO 1.21; BILIRUBIN,INDIRECT 0.2 mg/dl (0-1.1); BILIRUBIN,TOTAL 0.2 mg/dl (0.2-1.3); CALCIUM 9.5 mg/dl (8.4-10.2); CREATININE 0.7 mg/dl (0.61-1.24); MAGNESIUM 1.8 mg/dl (1.7-2.5); POTASSIUM 4.4 mmol/L (3.5-5.1); TOTAL PROTEIN 7.1 g/dl (6.1-8.1)
[2017-05-28] MEDS: DIGOXIN 0.125 MG TAB PO SCH (13:13)
--- NOTE | 2017-05-28 14:03 | CONS ---
Date/Time of Note Date/Time of Note DATE: 05/28/17 TIME: 14:01 Consult Date/Type/Reason Admit Date/Time May 26, 2017 at 13:20 Type of Consultation: CARDIOLOGY Subjective Discussed with staff emergency was reviewed. Patient remains in atrial fibrillation. Typically heart rate has been elevated this morning but clinically is better. Patient wants to go home. He says abdominal pain is improving. But he gets pain medication he has no abdominal pain. Objective: General: no acute distress HEENT: NC/AT. pupils are equal. round. NECK: NO JVD. no stridor. CV:irregularly irregualr. systolic murmur; no gallop or rubs. PULM: no wheezing or rhonchi. GI: SOFT, NT, ND, no rebound or guarding Extremity: trace B/L LE edema. no clubbing. neuro: awake and alert, OX3. Psych: calm and pleasant rectal: deferred : normal Objective Vital Signs Date Time Temp Pulse Resp B/P Pulse Ox O2 Delivery O2 Flow Rate FiO2 05/28/17 12:03 68 05/28/17 11:15 98.2 18 120/68 94 05/27/17 04:00 Room Air 05/26/17 13:20 8.0 Intake and Output 05/27/17 05/27/17 05/28/17 15:00 23:00 07:00 Intake Total 650 ml 550 ml Balance 650 ml 550 ml Results/Medications Result Diagram: 05/27/17 1455 05/28/17 0754 Results 24 hrs Laboratory Tests Test 05/27/17 14:55 05/27/17 16:59 05/27/17 21:36 05/28/17 07:54 White Blood Count 7.5 Red Blood Count 4.08 L Hemoglobin 12.4 L Hematocrit 36.6 L Mean Corpuscular Volume 89.7 Mean Corpuscular Hemoglobin 30.4 Mean Corpuscular Hemoglobin Concent 33.9 Red Cell Distribution Width 13.1 Platelet Count 223 Mean Platelet Volume 10.5 H Neutrophils % 67.7 Lymphocytes % 21.8 Monocytes % 8.3 Eosinophils % 1.5 Basophils % 0.4 Nucleated Red Blood Cells % 0.0 Neutrophils # (Manual) 5.1 Lymphocytes # 1.6 Monocytes # 0.6 Eosinophils # 0.1 Basophils # 0.0 Nucleated Red Blood Cells # 0.0 Bedside Glucose 159 95 Sodium Level 140 Potassium Level 4.4 Chloride Level 93 L Carbon Dioxide Level 32 H Anion Gap 19 H Blood Urea Nitrogen 13 Creatinine 0.70 Glucose Level 201 Calcium Level 9.5 Magnesium Level 1.8 Total Bilirubin 0.2 Direct Bilirubin 0.00 Indirect Bilirubin 0.2 Aspartate Amino Transf (AST/SGOT) 20 Alanine Aminotransferase (ALT/SGPT) 34 Alkaline Phosphatase 88 Total Protein 7.1 Albumin 3.9 Globulin 3.20 Albumin/Globulin Ratio 1.21 Test 05/28/17 08:00 05/28/17 12:01 Bedside Glucose 202 214 Medications Current Medications Hydromorphone HCl (Dilaudid) 1 mg Q4H PRN IV PAIN Last administered on 10:33; Admin Dose 1 MG; Start 05/26/17 at 13:30 Digoxin (Digoxin) 0.125 mg DAILY@13 PO Last administered on 05/28/17 13:13; Admin Dose 0.125 MG; Start 05/26/17 at 14:34 Acetaminophen/ Hydrocodone Bitart ([place] (10/325)) 1 tab Q6H PRN PO SEVERE PAIN LEVEL 7-10 Last administered on 05/28/17 07:59; Admin Dose 1 TAB; Start at 14:30 Lisinopril (Zestril) 20 mg QAM PO Last administered on 05/28/17 08:04; Admin Dose 20 MG; Start 05/26/17 at 14:30 Metoprolol Succinate (Toprol Xl) 50 mg DAILY PO Last administered on 05/28/17 08:04; Admin Dose 50 MG; Start 05/26/17 at 14:30 Miscellaneous Information 40 unit QPM XX ; Start 05/26/17 at 21:00; Status UNV Miscellaneous Information 45 unit QAM SQ ; Start 05/27/17 at 09:00; Status UNV Miscellaneous Information 1 ea NOTE XX ; Start 05/26/17 at 15:00 Glucose (Glutose) 15 gm Q15M PRN PO DECREASED GLUCOSE; Start 05/26/17 at 15:00 Glucose (Glutose) 22.5 gm Q15M PRN PO DECREASED GLUCOSE; Start 05/26/17 at 15: 00 Dextrose (D50w Syringe) 25 ml Q15M PRN IV DECREASED GLUCOSE; Start 05/26/17 at 15:00 Dextrose (D50w Syringe) 50 ml Q15M PRN IV DECREASED GLUCOSE; Start 05/26/17 at 15:00 Glucagon (Glucagen) 1 mg Q15M PRN IM DECREASED GLUCOSE; Start 05/26/17 at 15:00 Glucose (Glutose) 15 gm Q15M PRN BUCCAL DECREASED GLUCOSE; Start 05/26/17 at 15 :00 Diltiazem HCl (Cardizem Iv) 10 mg Q6 PRN IV IV PROTOCOL; Start 05/27/17 at 13: 00 Diagnostic Test (Pha) (Accu-Chek) 1 ea 02 XX ; Start 05/28/17 at 02:00 Assessment/Plan Chief Complaint/Hosp Course 1. AFIB: currently HR is better controlled 2. severe cardiomyopathy 3. pancreatic mass 4. HTN 5. DM cont home cardiac meds. resume eliquis once ok with GI. CONT DIG and metoprolol outpt follow up with DR Roberto dooley planning once ok with IM THANK YOU; RENUKA ARSHAD Problems: RENUKA ARSHAD MD May 28, 2017 14:03
--- NOTE | 2017-05-28 14:41 | PDOCDIS ---
Discharge Instructions CONDITION Patient Condition: Stable HOME CARE INSTRUCTIONS: Special Diet: Carb controlled ACTIVITY: Activity Restrictions: Slowly Increase Activity FOLLOW UP/APPOINTMENTS Follow-up Plan f/u own pcp [address] servin 1 wk JANE KING MD May 28, 2017 14:41
[2017-05-28] MEDS ORDERED: APIXABAN 5 MG TABLET PO SCH ×2 (15:15→21:00)
--- NOTE | 2017-05-28 15:16 | QN ---
Documentation Comment [id number] JANE KING MD May 28, 2017 15:16
--- NOTE | 2017-05-28 15:41 | DS ---
DATE OF ADMISSION: 05/26/2017 DATE OF DISCHARGE: 05/28/2017 HISTORY OF PRESENT ILLNESS: Gustavo Mccray is a 66-year-old male with history of pancreatic mass. The patient had a history of atrial fibrillation with history of LexiScan done in the past, underwent ERCP and stent placement. Postoperatively had tachycardia. The patient is asymptomatic and was restarted back on his medication, and the patient is going to be discharged home. FINAL DIAGNOSES: 1. Status post ERCP and stent placement in the pancreatic duct due to pancreatic mass. 2. Atrial fibrillation. 3. Chronic anemia. 4. Electrolyte imbalance. 5. History of atherosclerotic heart disease. 6. History of coronary artery disease. 7. Diabetes mellitus. 8. hypertension. DISCHARGE MEDICATIONS: The patient to continue on Eliquis, digoxin, gabapentin, hydrocodone, lisinopril, metoprolol and Protonix. FOLLOWUP: The patient to follow with Dr. Yvon Mejia MD and Dr. Kanwal Palmer MD as an outpatient. DISCHARGE CONDITION: The patient is stable at the time of discharge. Dictated By: Jonah Watson MD /victor manuel/mayuri /Document#: [id number]
[2017-05-28] MEDS ORDERED: GABAPENTIN 100 MG CAP PO SCH (21:00)
== END 2017-05-28 15:50 | disposition home or self-care (01) ==
LOC: SDS 09:34 → TEL 13:20 → SDS 13:20
PROVIDERS: ADMIT Internal Medicine; ATTEND Internal Medicine
DX: K86.9 Disease of pancreas, unspecified (principal); I48.91 Unspecified atrial fibrillation; D64.9 Anemia, unspecified; I10 Essential (primary) hypertension; E11.9 Type 2 diabetes mellitus without complications; I25.10 Atherosclerotic heart disease of native coronary artery without angina pectoris; I42.9 Cardiomyopathy, unspecified; E78.00 Pure hypercholesterolemia, unspecified; E66.3 Overweight; Z68.28 Body mass index [BMI] 28.0-28.9, adult; E87.8 Other disorders of electrolyte and fluid balance, not elsewhere classified
CPT/HCPCS: 43261; 43274; 74330; 80053; 82962; 83735; 85025; 88104; 88305; 93005; G0378; J0690; J1170; J1580; J1815; J2250; J2370; J2405; J2765; J3010; J7999; Q9967